=== PATIENT | male | born 1960 | race Caucasian/White ===

== ENCOUNTER → 2016-06-21 | Outpatient (CLI) | payer OTHER ==
--- NOTE | 2016-06-21 12:34 | MR ---
EXAMINATION TYPE: MR brain wo con DATE OF EXAM: 06/21/2016 11:12 AM COMPARISON: 01/19/2012 HISTORY: [facility] Standard multiplanar, multisequence MRI departmental protocol FINDINGS: There is no evidence of acute ischemia. Ventricular system is midline. No mass effect. Craniocervical junction maintained. Partially empty sella turcica noted. Changes of paranasal sinusit is noted. Intraorbital structures demonstrate a normal appearance. No evidence of cerebellopontine angle mass. WHITE MATTER: There are approximately 10 focal areas of abnormal signal scattered throughout the white matter bilat erally. All measuring 5 mm or less. No callosal lesions. No lesions perpendicular to the ventricular system. IMPRESSION: Nonspecific minimal white matter changes. Differential includes hypertension, remote microvascular is chemia or demyelinating process.
== END | disposition home or self-care (01) ==
LOC: RADMRIMAIN 10:39
PROVIDERS: ATTEND Psychiatry & Neurology Neurology
DX: R90.89 Other abnormal findings on diagnostic imaging of central nervous system (principal)
CPT/HCPCS: 70551

== ENCOUNTER → 2016-06-29 | Outpatient (CLI) | payer OTHER ==
[2016-06-29 11:28] VITALS: BP 178/94; PULSE 70; RESP 16; TEMP 97.7
--- NOTE | 2016-06-29 11:41 | P.PN ---
Subjective This is follow-up visit for this patient with a history of severe and chronic low back pain secondary to lumbar degenerative disc disease, lumbar facet arthropathy, and neck pain secondary to cervical spondylosis, we have done interventional pain management injection, diagnostic medial branch block lumbar area, patient had significant improvement of his low back pain for a few hours , he got more than 50% decrease in his low back pain and is currently on pain medications 1-Percocet 10/325 every 6 hours 2-baclofen 10 mg twice a day 3- Neurontin 400 mg every 8 hours ( from her primary care ) Patient denies any side effects of the medication, denies excessive drowsiness or sleepiness, denies suicidal ideation, and reports that the current pain medication is NOT helping To control the pain and improve activity of daily living the VAS /10 without the medications ,and it drope to /10 with the medication Physical Examinations : 1-Constitutiona : Cooperative , not in acute distress . 2-HEENT : nech ; supple , no Lymphadenopathy , no Thyromegaly , normal thyroid size . eyes : no ptosis , no icterus, no photophobia . ENT : normal of hearing , normal oropharynx , no Thrush . 3- Respiratory : Chest clear to auscultations Bilaterally , no wheezing , no Rhonchi . 4- Cardiovascular : regular rate and rhythem , S1 , S2 , no S3 , no S4. 5- Gastrointestinal : abdomen soft no tenderness , bowel sounds positive all four quadrents , no organomegally . 6- Genitourinary : Defferred . 7- neurologic : Cranial nerve II to XII intact , no focal neurological deffecit . 8-psychatric : alert , oriented X 3 , appropriate affect , intact judgment and insight . 9-Lymphatic : no Lymphadenopathy . 10- musculoskeltal : exams of the cervical spine = motor strength normal bilateral upper extremities facet loading test cervical area positive. exams of the Lumber spine = motor strength lower extremities ,thigh and legs .5/5 deep tendon reflexes : normal Knee Jerk , normal ankle Jerk . lumber facet Loading Test positive strait leg raising test positive at 30 degree , RT ,LT , Fabere test positive RT and positive LT . Range of motion: Range of motion in flexion of the lumbar spine 30 degrees Range of motion range of motion of extension of the lumbar spine 10 Assessment and plan = - Chronic low back pain secondary to lumbar degenerative disc disease , lumbar spondylosis with facet arthropathy without myelopathy , -chronic and current use of high-risk medication (Opioids). The patient was counseled about risk of opioid use, psychological risk associated with opioids and was orally counseled to not overuse , abuse , divert ,or sell dictations to take medications as prescribed only , and to restore medication in safe location , and patient counseled against driving while using narcotic medications, and also not to use alcohol or any illicit recreational drugs the patient's verbalized understanding that the lack of compliance will result in failure to renew narcotic prescription and possible discharge from the clinic - diagnoses, prognosis, and treatment options including but not limited to physical therapy, surgical interventions, interventional therapies and medication management including narcotics and adjuvant medication were discussed with the patient and all questions answered to the patient's satisfaction. -medication refile =1-refill Percocet 10/325 every 6 hours dispense 20 with 1 refill 3-baclofen 10 mg twice a day dispense 60 with 1 refill -procedure= repeat diagnostic medial branch block lumbar area is L3-4 /L4-5/L5- S1 The blood pressure was 178/94 and patient was instructed to take his blood pressure medication patient reported that he ran out of his medications and he will get his prescription today, and he will follow up with his primary care regarding his blood pressure
== END | disposition home or self-care (01) ==
LOC: PNWHC3 11:06
PROVIDERS: ATTEND Specialist
DX: G89.29 Other chronic pain (principal); M47.816 Spondylosis without myelopathy or radiculopathy, lumbar region; M51.36 Other intervertebral disc degeneration, lumbar region; M46.96 Unspecified inflammatory spondylopathy, lumbar region; M47.812 Spondylosis without myelopathy or radiculopathy, cervical region; Z79.891 Long term (current) use of opiate analgesic
CPT/HCPCS: 99211

== ENCOUNTER 2016-07-04 06:05 | Day surgery (SDC) | payer OTHER ==
[2016-06-30 15:14] VITALS: BMI 29.5
[~2016-07-04 06:05] MED LIST: LACTATED RINGERS 1,000 ML IV SCH
[2016-07-04 06:58] VITALS: TEMP 98.2
[2016-07-04] MEDS ORDERED: LIDOCAINE 1% 20 ML VIAL (10MG/ML) FOR IV START INTRADERMA ONE (07:07)
[2016-07-04 07:13] LABS: Glucose,Whole Blood 103 mg/dL (75-99)
[2016-07-04] MEDS ORDERED: BUPIVACAINE (PF) 0.5% 30 ML VIAL ONE (07:13)
[2016-07-04] MEDS ORDERED: fentaNYL (PF) 50 MCG/ML 2 ML AMP ONE (07:13)
[2016-07-04] MEDS ORDERED: TRIAMCINOLONE ACETONIDE 40 MG/ML 1 ML VIAL ONE (07:13)
[2016-07-04] MEDS ORDERED: MIDAZOLAM 2 MG/2 ML VIAL ONE (07:13)
--- NOTE | 2016-07-04 07:37 | P.PCN ---
Date of Procedure: 07/04/16 Procedure(s) Performed: PREOPERATIVE DIAGNOSIS : 1- Lumbar spondylosis with Facet Arthropathy without myelopathy . 2- Lumber degenerative disc disease POSTOPERATIVE DIAGNOSIS: 1- Lumbar spondylosis with Facet Arthropathy without myelopathy . 2- Lumber degenerative disc disease PROCEDURE: Diagnostic bilateral L3 -4 , L4 -5 , and L5-S1 medial branch block under fluoroscopy #2 ANESTHESIA: Local with 1% lidocaine 6 ml ; IV sedation with Versed 2 mg and Fentanyl 150 mcg. EBL: Minimal COMPLICATION: None. IV FLUIDS: 100 mL of normal saline. PROCEDURE INDICATION: Chronic low back pain secondary to Facet arthropathy unresponsive to conservative treatment. PROCEDURE DESCRIPTION: the patient was seen and identified in the preop holding area , risks and benefits and possible complications of the procedure and alternative were discussed with the patient, and the patient agreed to proceed with the procedure and signed the consent IV was started and vital signs monitored during the procedure and fluoroscopy was used to maximize the benefit and accuracy of the needle placement, and sedation was given to decrease patient anxiety, patient was taken to the procedure room and placed in prone position vital signs monitored in the back prepped with chlorhexidine X3 then under strict sterile technique using a right oblique fluoroscopy ,the junction of the transverse process and the superior articulating process of the right L3- 4 , L4- 5, and L5-S1 vertebra which corresponding to the fluoroscopy image of the eye of the Moses dog on the block side for the medial branches and subsequently , after local infiltration of skin and subcu tissuies with lidocaine 1% one mL at each level ,then 22- gauge Quincke-type needles , 3 needle was used , each one of them placed at the junction of the base of the transverse process and the superior articular process at the appropriate level, and the needle was advanced until the periosteum contacted, needle placement confirmed with AP oblique and lateral view and after appropriate needle placement confirmed, and after negative aspiration for heme and CSF and there was no paresthesia 1-1/2 mL of Marcaine 0.5% mixed with 40 mg Kenalog , then half mL injected at each level after negative aspiration the needle subsequently removed and the same procedure repeated for the left side at left side at L3-4, L4- 5 and L5-S1 levels. At the end of the procedure and the needles removed and a bandage applied after the skin was cleaned the cleaning solution patient taken to recovery room in stable condition and monitors in the recovery room for 20-30 minutes and discharged home in stable condition after discharge criteria met and patient will follow up with the pain clinic in 2-4 weeks
[2016-07-04 08:04] VITALS: BP 112/76; PULSE 68; RESP 20
[2016-07-04] MEDS ORDERED: IV FLUID CONTINUATION 1,000 ML IV ONE (08:05)
--- NOTE | 2016-07-04 08:58 | FL ---
EXAMINATION TYPE: FL guided pain mgmt... statistic DATE OF EXAM: 07/04/2016 7:42 AM HISTORY: Flouroscopy time 9 seconds of fluoroscopy provided. IMPRESSION: 1. Fluoroscopy time.
== END 2016-07-04 08:13 | disposition home or self-care (01) ==
LOC: ORPAIN 06:05
PROVIDERS: ATTEND Specialist
DX: G89.29 Other chronic pain (principal); M54.5 Low back pain; M47.816 Spondylosis without myelopathy or radiculopathy, lumbar region; M46.96 Unspecified inflammatory spondylopathy, lumbar region; M51.36 Other intervertebral disc degeneration, lumbar region
CPT/HCPCS: 64493; 64494; 64495; 99152; J2250; J3301; J3010

== ENCOUNTER → 2016-07-18 | Outpatient (CLI) | payer OTHER ==
[2016-07-18 12:20] LABS: Blood Urea Nitrogen 14 mg/dL (9-20); Non-African American GFR(MDRD) >60 (>60 ml/min/1.73 sqM)
--- NOTE | 2016-07-18 13:44 | CT ---
EXAMINATION TYPE: CT chest w con DATE OF EXAM: 07/18/2016 12:45 PM COMPARISON: Prior chest CT 11 November 2015 HISTORY: SPN CT DLP: 485.70 mGycm Automated exposure control for dose reduction was used. CONTRAST: CT scan of the chest is performed with IV Contrast, patient injected with 100 ml mL of Omnipaque 300. FINDINGS: LUNGS: The lungs are grossly clear, there is no concerning parenchymal mass or nodule identified. T here is no pleural effusion or pneumothorax seen. The tracheobronchial tree is patent. MEDIASTINUM: There are no greater than 1 cm hilar or mediastinal lymph nodes. No pericardial effusi on is seen. AORTA: No additional significant abnormality is seen. OTHER: Liver shows low attenuation likely due to fatty infiltration. IMPRESSION: No evident lung mass.
== END | disposition home or self-care (01) ==
LOC: RADCTMAIN 11:38
PROVIDERS: ATTEND Internal Medicine Sleep Medicine
DX: R91.1 Solitary pulmonary nodule (principal)
CPT/HCPCS: 82565; 84520; 71260; 36415; Q9967

== ENCOUNTER → 2016-07-25 | Outpatient (CLI) | payer OTHER ==
[2016-07-25 11:53] VITALS: BP 156/94; PULSE 75; RESP 18; TEMP 97.5
--- NOTE | 2016-07-25 12:09 | P.PN ---
Progress Note - Text Patient returns for followup for chronic back pain with mild radiation to the legs. Patient recently underwent lumbar MBB x 2, which provided some relief for 1-2 hours on the day of the procedure itself and then wore off. Patient continues on Percocet and baclofen medications for pain with good relief. Patient denies adverse drug effects from medications. Today, pt denies new- onset weakness, bowel/bladder incontinence, or any other signs or symptoms of cauda equina syndrome. There are no signs of acute intoxication, and no indications of medication diversion or overuse. In addition to above, 13-point review of systems is also negative for chest pain , shortness of breath, changes in vision, changes in hearing, new onset weakness , abdominal pain, diarrhea, extreme fatigue, malaise, fever, skin changes, homicidal or suicidal ideation, or bowel or bladder incontinence. Vital Signs: Reviewed in EMR Gen: WDWN, AAOx3, NAD HEENT: NCAT, EOMI, hearing grossly normal Pulm: resp unlabored Abd: soft, NT, ND Neck: supple, trachea midline ROM in flexion lumbar spine: reduced ROM in extension lumbar spine: reduced Lumbar paravertebral tenderness: + Facet loading: ++ bilateral SI joint tenderness: + R side Anibal's test: + R side Straight leg raise: neg bilateral Neuro: CN II-XII grossly intact, muscle strength lower extremities PRESERVED Imaging: Reviewed in EMR Assessment: 1. lumbar spondylosis without myelopathy 2. SI joint dysfunction 3. chronic pain syndrome Plan: 1. Explanation: Opioid and psychological risk scores were reviewed. Diagnoses , prognoses, and multiple treatment options including but not limited to physical therapy, interventional therapies, adjuvant medical therapies, narcotic medication therapies, and surgery were discussed with the patient and all questions were answered to the patient's satisfaction. 2. Opioid agreement: Patient has previously signed narcotic agreement, and was orally counseled to not overuse, abuse, divert, or cell medications, and to take them as prescribed by only 1 healthcare provider. The patient was also counseled to store opioid medications in a safe and preferably locked location. Patient was also counseled against driving or operating heavy equipment while using narcotic medications and also to not use alcohol or any illicit or recreational drugs. The patient verbalized understanding that lack of compliance with any of the above and likely result in failure to renew narcotic prescriptions, possible discharge from the clinic, and possible legal ramifications thereafter if indicated. 3. Counseling: The patient was counseled extensively on SMOKING CESSATION, BODY MASS INDEX, EXERCISE. Specifically, the patient was instructed regarding the importance of smoking cessation, obesity, and exercise in the context of both chronic pain and overall health. 4. Procedures: right, then left lumbar RFA (even though relief for only 1-2 hours, was >50% from both procedures) 5. Consultations: None 6. Investigations: None 7. Medications: Percocet 10/325 #120 with one refill; baclofen 10 mg #60 with two refill 8. Disposition: f/u for procedure as scheduled PQRS measures: 1-Patient's medications are documented in the chart. 2-Tobacco use is negative 3-Patient has had a pneumococcal vaccine. 4-Advanced care planning discussed, patient unable to give. 5-Opioid contract signed with the patient. 6-Pain positive, follow-up visit or procedure scheduled 7-Patient's blood pressure measured and documented, and patient will follow up with the primary care due to hypertension. 8-Patient's weight was measured, and body mass index ABOVE the normal limits, and counseling was done. Patient instructed to follow up with PCP. 9-Patient WAS NOT identified as an unhealthy alcohol user.
[2016-07-27 14:11] LABS: Serum Amphetamine Negative; Serum Barbiturates Negative; Serum Benzodiazepine Positive; Serum Cocaine Negative; Serum Methadone Negative; Serum Opiates Negative; Serum Phencyclidine Negative; Serum Propoxyphene Negative; Serum THC (Cannabis) Negative
== END | disposition home or self-care (01) ==
LOC: PNWHC3 11:19
PROVIDERS: ATTEND Anesthesiology
DX: M47.816 Spondylosis without myelopathy or radiculopathy, lumbar region (principal); M53.88 Other specified dorsopathies, sacral and sacrococcygeal region; G89.4 Chronic pain syndrome; Z79.891 Long term (current) use of opiate analgesic; I10 Essential (primary) hypertension
CPT/HCPCS: 80307; G0463; 99211

== ENCOUNTER → 2016-08-23 | Outpatient (CLI) | payer OTHER ==
[2016-08-23 12:42] VITALS: BP 134/85; PULSE 64; RESP 16; TEMP 97.6
--- NOTE | 2016-08-23 13:13 | P.CONS ---
History of Present Illness - Reason for Consult Consult date: 08/23/16 - Chief Complaint Severe persistent low back pain radiating into her legs - History of Present Illness This pleasant 55-year-old male returns today for continuing evaluation possible therapeutic intervention with regards to his chronic low back and lower extremity related discomfort. The patient here at [facility] for several years having undergone multiple interventional pain procedures as well as been maintained on medical management for that. At time. He currently presents on a oral analgesic regimen including oxycodone 10 mg, baclofen 10 mg and a variety of other nonnarcotic medications. He states that he uses these on a regular basis as are prescribed, and that they are of moderate efficacy for him. It was again stressed to Mr. Murray Hood that following directions as far as his medication administration and usage is of paramount importance, and if we find here at the [facility] that he is not compliant with the terms of his narcotic contract he will be discharged from the pain clinic at the current time he is scheduled for a radiofrequency procedure of his medial branch nerves in his low back in approximately 1 week's time. After this procedure we will again evaluate his results and decide on where to go with his medical management a couple weeks later and that appointment is scheduled scheduled as well on September 19 see no further need for intervention this work is were discharged in excellent condition and instructed to return on the at which time he would undergo interventional procedure hopefully which will lower his reliance on oral analgesic preparations and improve his overall quality of life Past Medical History Past Medical History: Asthma, CVA/TIA, Hyperlipidemia, Pneumonia Additional Past Medical History / Comment(s): back pain-LUMBAGO, vertigo, STROKES BEHIND THE EYES,. difficulty swallowing. History of Any Multi-Drug Resistant Organisms: None Reported Past Surgical History: Appendectomy, Hernia Repair, Orthopedic Surgery Additional Past Surgical History / Comment(s): RT INGUINAL HERNIA INFANT, RT ROTATOR CUFF SX, Past Anesthesia/Blood Transfusion Reactions: No Reported Reaction Past Psychological History: Anxiety, Depression Additional Psychological History / Comment(s): XANAX Smoking Status: Former smoker Past Alcohol Use History: None Reported Additional Past Alcohol Use History / Comment(s): STARTED SMOKING AT AGE 18 SMOKES 1PPD, Quit Smoking 05/11 Past Drug Use History: None Reported - Past Family History Father Family Medical History: Asthma, COPD, Diabetes Mellitus, Hyperlipidemia, Hypertension Mother Family Medical History: Hypertension Medications and Allergies Home Medications Medication Instructions Recorded Confirmed Type ALPRAZolam [ALPRAZolam] 1 mg PO BID 11/25/15 08/23/16 History Citalopram Hydrobromide 40 mg PO DAILY 11/25/15 08/23/16 History [Citalopram HBr] Gemfibrozil [Lopid] 600 mg PO BID 11/25/15 08/23/16 History Temazepam [Restoril] 30 mg PO HS 11/25/15 08/23/16 History Budesonide/Formoterol Fumarate 1 puff INHALATION RT-BID 02/03/16 08/23/16 History [Symbicort 160-4.5 Mcg Inhaler] Omeprazole 20 mg PO AC-BRKFST 02/03/16 08/23/16 History Aspirin [Adult Low Dose Aspirin EC] 81 mg PO DAILY 03/20/16 08/23/16 History Ipratropium-Albuterol Nebulize 3 ml INHALATION RT-TID 03/28/16 08/23/16 History [Duoneb 0.5 mg-3 mg/3 ml Soln] Montelukast [Singulair] 10 mg PO DAILY 06/29/16 08/23/16 History Lisinopril [Zestril] 10 mg PO DAILY 06/30/16 08/23/16 History Allergies Allergy/AdvReac Type Severity Reaction Status Date / Time birds Allergy Wheezing Uncoded 08/23/16 12:20 Physical Exam Osteopathic Statement: *. No significant issues noted on an osteopathic structural exam other than those noted in the History and Physical/Consult. Vitals: Vital Signs Temp Pulse Resp BP 08/23/16 12:33 97.6 F 64 16 134/85 Intake and Output 08/22/16 08/23/16 08/23/16 22:59 06:59 14:59 Other: Weight 97.522 kg Patient Weight 08/24/16 06:59 Weight 97.522 kg
== END | disposition home or self-care (01) ==
LOC: PNWHC3 11:56
PROVIDERS: ATTEND Anesthesiology
DX: G89.29 Other chronic pain (principal); M54.5 Low back pain; M79.605 Pain in left leg; M79.604 Pain in right leg; F41.9 Anxiety disorder, unspecified; F32.9 Major depressive disorder, single episode, unspecified; J45.909 Unspecified asthma, uncomplicated; E78.5 Hyperlipidemia, unspecified; Z86.73 Personal history of transient ischemic attack (TIA), and cerebral infarction without residual deficits; Z79.899 Other long term (current) drug therapy; Z91.09 Other allergy status, other than to drugs and biological substances; Z87.891 Personal history of nicotine dependence

== ENCOUNTER 2016-08-31 06:54 | Day surgery (SDC) | payer OTHER ==
[2016-08-29 12:18] VITALS: BMI 29.0
[2016-08-31] MEDS ORDERED: LACTATED RINGERS 1,000 ML IV ONE (07:00)
[2016-08-31 07:42] VITALS: TEMP 97.5
[2016-08-31] MEDS ORDERED: LIDOCAINE 1% 20 ML VIAL (10MG/ML) FOR IV START INTRADERMA ONE (07:49)
[2016-08-31] MEDS ORDERED: TRIAMCINOLONE ACETONIDE 40 MG/ML 1 ML VIAL ONE (08:50)
[2016-08-31] MEDS ORDERED: fentaNYL (PF) 50 MCG/ML 2 ML AMP ONE (08:50)
[2016-08-31] MEDS ORDERED: MIDAZOLAM 2 MG/2 ML VIAL ONE (08:50)
[2016-08-31] MEDS ORDERED: BUPIVACAINE (PF) 0.5% 30 ML VIAL ONE (08:50)
--- NOTE | 2016-08-31 09:21 | P.PCN ---
Date of Procedure: 08/31/16 Procedure(s) Performed: PREOPERATIVE DIAGNOSIS: 1-Lumbar Spondylosis with Facet Arthropathy without myelopathy. POSTOPERATIVE DIAGNOSIS: 1- Lumbar Spondylosis with Facet Arthropathy without myelopathy. PROCEDURES : Right Radiofrequency thermocoagulation, L3-L4, L4-L5, and L5-S1 medial branch, with fluoroscopic guidance ANESTHESIA: IV sedation with versed 2 mg and fentaneyl 150 mcg and local infiltration with lidocaine 1% 6 ml EBL: Minimal PROCEDURE INDICATION: The patient with low back pain secondary to lumbar facet arthropathy who had more than 50% relief of her pain with previous diagnostic lumbar medial branch block with bupivacaine. PROCEDURE DESCRIPTION / TECHNIQUE: The patient was seen and identified in the preoperative area. Risks, benefits, complications, including but not limited to risk of infection ,bleeding , allergic reactions to the medications and no complete pain releife , and alternatives were discussed with the patient, the patient agreed to proceed with the procedure and signed the consent. IV was started. Vital signs remained stable throughout the procedure. Patient was taken to the OR and time out was completed. The patient was placed in the prone position on the procedure table. The lumber area was prepped and draped in the usual sterile fashion. . Vital signs were closely monitored during the procedure .IV sedation was used during the procedure to decrease patients anxiety. Using AP and then oblique fluoroscopy, the ``eye of the Moses dog corresponding to the connection between the superior and transverse articular processes of right L3, L4, and L5 were identified, marked, and localized with 1 % lidocaine. Subsequently, a 18 [id number] radiofrequency cannula with a 10- mm active tip was advanced guided by fluoroscopy to each of the ``eyes of the Moses dog at right L3, L4, and L5. Each site then underwent sensory testing at 50 Hz and 0 to 1 volt and motor testing at 2.5 Hz and 0 to 3 volt with local stimulation, but no radicular symptoms down the legs. Thereafter the right L3-4, L4-5, and L5-S1 sites underwent radiofrequency thermocoagulation at 80 degrees celsius for 90 seconds after injecting 0.5 ml of PF lidocaine 1%. then After the thermocoagulation done , 1 ml of the block solution containing Kenalog 40 mg and 3 ml of marain 0.5% was injected at the right L3-4 , L4-5 , and L5-S1, levels after negative aspiration of CSF and blood and with no paresthesias. Cannulas were retracted while injecting lidocaine 1% until the needle is out. At the end of the procedure, the skin was cleansed and bandages were applied. COMPLICATIONS: No acute complications. DISPOSITION / PLANS: The patient was placed in a supine position and transferred to the recovery area in a stable condition for observation and was discharged from the recovery room after meeting discharge criteria. Home discharge instructions given to the patient by the staff. The patient was reexamined prior to discharge. The patient will schedule a follow up in the clinic in 2-4 weeks.
--- NOTE | 2016-08-31 09:31 | FL ---
FLUOROSCOPY 7 seconds of fluoroscopy time were utilized during facet block. 3 images document the procedure.
[2016-08-31 10:05] VITALS: BP 110/76; PULSE 55; RESP 18
[2016-08-31] MEDS ORDERED: IV FLUID CONTINUATION 1,000 ML IV ONE (10:05)
[2016-09-01 16:20] LABS: Serum Amphetamine Negative; Serum Barbiturates Negative; Serum Benzodiazepine Negative; Serum Cocaine Negative; Serum Methadone Negative; Serum Opiates Negative; Serum Phencyclidine Negative; Serum Propoxyphene Negative; Serum THC (Cannabis) Negative
--- NOTE | 2016-09-04 09:57 | CDI ---
In order to properly code and bill for this encounter, we need to know what type of sedation was used during the procedure. Your Procedure Note states "IV sedation" and the Pain Procedure Record doesn't have anything checked after Anesthesia Plan. What types of sedation or anesthesia was used? Examples includes: -MAC -Moderate/conscious sedation -General anesthesia -None Please provide sedation details in an addendum to your operative report. Thank you! GENEVIEVE Goncalves
[2016-09-05 09:55] LABS: Mis test requested (Blood) FENTANYL-FENTM
--- NOTE | 2016-09-28 23:22 | P.PN ---
Progress Note - Text This is an addendum to the note dictated 08/31/2016, patient received moderate sedation for the procedure he received 2 mg of Versed and 150 g of fentanyl , and the
== END 2016-08-31 10:19 | disposition home or self-care (01) ==
LOC: ORPAIN 06:54
PROVIDERS: ATTEND Specialist
DX: M47.816 Spondylosis without myelopathy or radiculopathy, lumbar region (principal); M46.96 Unspecified inflammatory spondylopathy, lumbar region; Z91.09 Other allergy status, other than to drugs and biological substances; Z86.73 Personal history of transient ischemic attack (TIA), and cerebral infarction without residual deficits
CPT/HCPCS: 80307; 64635; 64636; 99152; 99153; G0480; J2250; J3301; J3010; 80320; 80354

== ENCOUNTER → 2016-09-19 | Outpatient (CLI) | payer OTHER ==
[2016-09-19 12:07] VITALS: BP 136/75; PULSE 64; RESP 16; TEMP 97.5
--- NOTE | 2016-09-19 12:25 | P.PN ---
Progress Note - Text Patient returns for followup for chronic back pain with mild radiation to the legs. Patient recently underwent R lumbar RFA x 2, which has helped substantially with right leg pain but patient still has some back pain. Left RFA is already scheduled. Patient continues on Percocet and baclofen medications for pain with good relief but last two serum drug screens (patient states that he cannot typically urinate at our clinic) have been negative for opioids. Patient insists that he is taking them and denies adverse drug effects from medications. Today, pt denies new-onset weakness, bowel/bladder incontinence, or any other signs or symptoms of cauda equina syndrome. There are no signs of acute intoxication, and no indications of medication diversion or overuse. In addition to above, 13-point review of systems is also negative for chest pain , shortness of breath, changes in vision, changes in hearing, new onset weakness , abdominal pain, diarrhea, extreme fatigue, malaise, fever, skin changes, homicidal or suicidal ideation, or bowel or bladder incontinence. Vital Signs: Reviewed in EMR Gen: WDWN, AAOx3, NAD HEENT: NCAT, EOMI, hearing grossly normal Pulm: resp unlabored Abd: soft, NT, ND Neck: supple, trachea midline ROM in flexion lumbar spine: reduced ROM in extension lumbar spine: reduced Lumbar paravertebral tenderness: + Facet loading: ++ bilateral SI joint tenderness: + R side Anibal's test: + R side Straight leg raise: neg bilateral Neuro: CN II-XII grossly intact, muscle strength lower extremities PRESERVED Imaging: Reviewed in EMR Assessment: 1. lumbar spondylosis without myelopathy 2. SI joint dysfunction 3. chronic pain syndrome Plan: 1. Explanation: Opioid and psychological risk scores were reviewed. Diagnoses , prognoses, and multiple treatment options including but not limited to physical therapy, interventional therapies, adjuvant medical therapies, narcotic medication therapies, and surgery were discussed with the patient and all questions were answered to the patient's satisfaction. 2. Opioid agreement: Patient has previously signed narcotic agreement, and was orally counseled to not overuse, abuse, divert, or cell medications, and to take them as prescribed by only 1 healthcare provider. The patient was also counseled to store opioid medications in a safe and preferably locked location. Patient was also counseled against driving or operating heavy equipment while using narcotic medications and also to not use alcohol or any illicit or recreational drugs. The patient verbalized understanding that lack of compliance with any of the above and likely result in failure to renew narcotic prescriptions, possible discharge from the clinic, and possible legal ramifications thereafter if indicated. 3. Counseling: The patient was counseled extensively on BODY MASS INDEX, EXERCISE. Specifically, the patient was instructed regarding the importance of obesity, and exercise in the context of both chronic pain and overall health. 4. Procedures: left lumbar RFA 5. Consultations: None 6. Investigations: UDS to be performed today 7. Medications: Percocet 10/325 #60 with no refills; baclofen 10 mg #60 with two refills 8. Disposition: f/u for procedure as scheduled, please check UDS result at procedure visit PQRS measures: 1-Patient's medications are documented in the chart. 2-Tobacco use is negative 3-Patient has had a pneumococcal vaccine. 4-Advanced care planning discussed, patient unable to give. 5-Opioid contract signed with the patient. 6-Pain positive, follow-up visit or procedure scheduled 7-Patient's blood pressure measured and documented, and patient will follow up with the primary care due to hypertension. 8-Patient's weight was measured, and body mass index ABOVE the normal limits, and counseling was done. Patient instructed to follow up with PCP. 9-Patient WAS NOT identified as an unhealthy alcohol user.
== END | disposition home or self-care (01) ==
LOC: PNWHC3 11:32
PROVIDERS: ATTEND Anesthesiology
DX: M47.816 Spondylosis without myelopathy or radiculopathy, lumbar region (principal); G89.4 Chronic pain syndrome; Z79.891 Long term (current) use of opiate analgesic
CPT/HCPCS: 80307 ×2; G0463; 80346; 80364; 99211

== ENCOUNTER 2016-10-11 09:06 | Day surgery (SDC) | payer OTHER ==
[2016-10-10 08:34] VITALS: BMI 28.6
[2016-10-11] MEDS ORDERED: LIDOCAINE 1% 20 ML VIAL (10MG/ML) FOR IV START INTRADERMA ONE (10:02)
[2016-10-11 10:13] VITALS: TEMP 97.7
[2016-10-11] MEDS ORDERED: MIDAZOLAM 2 MG/2 ML VIAL ONE (10:42)
[2016-10-11] MEDS ORDERED: TRIAMCINOLONE ACETONIDE 40 MG/ML 1 ML VIAL ONE (10:42)
[2016-10-11] MEDS ORDERED: fentaNYL (PF) 50 MCG/ML 2 ML AMP ONE (10:42)
[2016-10-11] MEDS ORDERED: BUPIVACAINE (PF) 0.5% 30 ML VIAL ONE (10:42)
--- NOTE | 2016-10-11 11:11 | P.PCN ---
Date of Procedure: 10/11/16 Preoperative Diagnosis: Postoperative Diagnosis: Procedure(s) Performed: PREOPERATIVE DIAGNOSIS: 1-Lumbar Spondylosis with Facet Arthropathy without myelopathy. POSTOPERATIVE DIAGNOSIS: 1- Lumbar Spondylosis with Facet Arthropathy without myelopathy. PROCEDURES : Left Radiofrequency thermocoagulation, L3-L4, L4-L5, and L5-S1 medial branch, with fluoroscopic guidance ANESTHESIA: IV sedation with versed 2 mg and fentaneyl 100 mcg and local infiltration with lidocaine 1% 6 ml EBL: Minimal PROCEDURE INDICATION: The patient with low back pain secondary to lumbar facet arthropathy who had more than 50% relief of her pain with previous diagnostic lumbar medial branch block with bupivacaine. PROCEDURE DESCRIPTION / TECHNIQUE: The patient was seen and identified in the preoperative area. Risks, benefits, complications, including but not limited to risk of infection ,bleeding , allergic reactions to the medications and no complete pain releife , and alternatives were discussed with the patient, the patient agreed to proceed with the procedure and signed the consent. IV was started. Vital signs remained stable throughout the procedure. Patient was taken to the OR and time out was completed. The patient was placed in the prone position on the procedure table. The lumber area was prepped and draped in the usual sterile fashion. . Vital signs were closely monitored during the procedure .IV sedation was used during the procedure to decrease patients anxiety. Using AP and then oblique fluoroscopy, the ``eye of the Moses dog corresponding to the connection between the superior and transverse articular processes of left L3, L4, and L5 were identified, marked, and localized with 1 % lidocaine. Subsequently, a 18 [id number] radiofrequency cannula with a 10- mm active tip was advanced guided by fluoroscopy to each of the ``eyes of the Moses dog at left L3, L4, and L5. Each site then underwent sensory testing at 50 Hz and 0 to 1 volt and motor testing at 2.5 Hz and 0 to 3 volt with local stimulation, but no radicular symptoms down the legs. Thereafter the left L3-4, L4-5, and L5-S1 sites underwent radiofrequency thermocoagulation at 80 degrees celsius for 90 seconds after injecting 0.5 ml of PF lidocaine 1%. then After the thermocoagulation done , 1 ml of the block solution containing Kenalog 40 mg and 3 ml of marain 0.5% was injected at the left L3-4 , L4-5 , and L5-S1, levels after negative aspiration of CSF and blood and with no paresthesias. Cannulas were retracted while injecting lidocaine 1% until the needle is out. At the end of the procedure, the skin was cleansed and bandages were applied. COMPLICATIONS: No acute complications. DISPOSITION / PLANS: The patient was placed in a supine position and transferred to the recovery area in a stable condition for observation and was discharged from the recovery room after meeting discharge criteria. Home discharge instructions given to the patient by the staff. The patient was reexamined prior to discharge. The patient will schedule a follow up in the clinic in 2-4 weeks. Implants: Indications for Procedure: Operative Findings: Description of Procedure:
[2016-10-11] MEDS ORDERED: IV FLUID CONTINUATION 600 ML IV ONE (11:22)
[2016-10-11 11:26] VITALS: PULSE 50
--- NOTE | 2016-10-11 11:31 | FL ---
EXAMINATION TYPE: FL guided pain mgmt statistic DATE OF EXAM: 10/11/2016 11:11 AM HISTORY: Flouroscopy time 5 seconds of fluoroscopy provided. IMPRESSION: 1. Fluoroscopy time.
[2016-10-11 11:50] VITALS: BP 120/71; RESP 18
== END 2016-10-11 12:22 | disposition home or self-care (01) ==
LOC: ORPAIN 09:06
PROVIDERS: ATTEND Specialist
DX: M47.816 Spondylosis without myelopathy or radiculopathy, lumbar region (principal); M46.96 Unspecified inflammatory spondylopathy, lumbar region
CPT/HCPCS: 64635; 64636; 99152; J2250; J3301; J3010

== ENCOUNTER → 2016-11-08 | Outpatient (CLI) | payer OTHER ==
[2016-11-08 12:07] VITALS: BP 134/77; PULSE 60; RESP 18; TEMP 97.9
--- NOTE | 2016-11-09 22:02 | P.PN ---
Subjective This is for visit for this 56 years old male with a chronic history of severe low back pain, diagnosed with lumbar spondylosis, disposed radiofrequency ablation of the medial branch lumbar area done last month, he reported that his low back pain improved but he continued to have some pain in the buttock area laterally, he denies any motor or sensory deficit, and no fever or night sweats with no change in the bowel movement or urination, he reported that the interventional pain management of his pain, currently most of the pain localized in the buttock area, and is not deviated to the lower extremity, his currently on pain medication Percocet 10/325 every 8 hours, baclofen 10 mg twice a day and Neurontin 400 mg 3 times a day, he denies any side effect of the medication he denies any excessive drowsiness or sleepiness and he reported that the current pain medication is helping him to control his pain Objective - Vital Signs Vital signs: Vital Signs Temp 97.9 F 11/08/16 11:57 Pulse 60 11/08/16 11:57 Resp 18 11/08/16 11:57 BP 134/77 11/08/16 11:57 Pulse Ox 99 11/08/16 11:57 - Exam Physical Examinations : 1-Constitutiona : Cooperative , not in acute distress . 2-HEENT : nech ; supple , no Lymphadenopathy , normal thyroid size . eyes : no ptosis , no icterus, no photophobia . ENT : normal of hearing , normal oropharynx , no Thrush . 3- Respiratory : Chest clear to auscultations Bilaterally , no wheezing , no Rhonchi . 4- Cardiovascular : regular rate and rhythem , S1 , S2 , no S3 , no S4. 5- Gastrointestinal : abdomen soft no tenderness , bowel sounds positive all four quadrents , no organomegally . 6- Genitourinary : Defferred . 7- neurologic : Cranial nerve II to XII intact , no focal neurological deffecit . 8-psychatric : alert , oriented X 3 , appropriate affect , intact judgment and insight . 9-Lymphatic : no Lymphadenopathy . 10- musculoskeltal : Lumber spine = normal moter stegnth lower extremities ,thigh and legs .5/5 deep tendon reflexes : normal Knee Jerk , normal ankle Jerk . positive lumber facet Loading Test strait leg raising test positive at 30 degree , RT ,LT , Fabere test positive RT and positive LT . Sever tenderness over the Sacroiliac joint on the Right , and Left side Assessment and Plan Plan: Assessment and plan= -chronic low back pain secondary to lumbar degenerative disc disease , lumbar spondylosis with lumbar facet arthropathy without myelopathy. - chronic and current use of high-risk medication (opioids) -Patient denies any side effects of the current pain medication and the current treatment/medication ML and the patient to do activity of daily living , diagnoses, prognosis, and treatment options, including but not limited to physical therapy, medication management, interventional therapies, and surgery, were discussed with the patient, and all the questions were answered to the patient's satisfactions Patient signed the narcotic agreement, and he was orally counseled, not to overuse, not to abuse, not to Divert , not tp sell pain medication, and to take it as prescribed only, Patient was counseled not to drive or operate heavy equipment while using narcotic medication, and advised not to use alcohol or any Illicit drugs while he is using the narcotis, the patient's verbalized understanding that lack of compliance with any of the above instructions and will likely to cause discharge from the pain service, not to renew his narcotic prescriptions Medication managements= patient will be given prescription refills for 1-Neurontin 400 mg 3 times a day 2-Percocet 10/325 twice a day 3-back) 10 mg twice a day 4-started Voltaren gel -like twice to the sacroiliac joint area Interventional pain management= consider bilateral sacroiliac joint steroid injection if the pain increased Follow-up= one month Time with Patient: Less than 30
== END ==
LOC: PNWHC3 11:23
PROVIDERS: ATTEND Specialist
DX: M51.36 Other intervertebral disc degeneration, lumbar region (principal); M47.816 Spondylosis without myelopathy or radiculopathy, lumbar region; M46.86 Other specified inflammatory spondylopathies, lumbar region; G89.29 Other chronic pain; Z79.891 Long term (current) use of opiate analgesic
CPT/HCPCS: 99211

== ENCOUNTER 2016-11-27 21:31 | Observation (INO) | payer OTHER ==
[2016-11-27] MEDS ORDERED: ASPIRIN 81 MG CHEW PO STA (22:12)
[2016-11-27] MEDS ORDERED: NITROGLYCERIN OINT 1 INCH/GM PACKET TOPICAL STA (22:12)
--- NOTE | 2016-11-27 22:16 | ED ---
Chest Pain HPI - General Chief Complaint: Chest Pain Stated Complaint: Chest Pain Time Seen by Provider: 11/27/16 22:04 Source: patient, family Mode of arrival: wheelchair Limitations: no limitations - History of Present Illness Initial Comments: This 56-year-old white male presents with a complaint of some left-sided chest pain. He describes this as a dull achy type pain which started around 4:00 AM this morning. It seems to radiate into his left neck, shoulder, and arm. He states that it is been a constant type of pain. He takes Percocet for his chronic back pain but states that this has not helped his chest pain. He denies any previous known cardiac disease but states he has had approximately 10 strokes. He denies any leg pain or swelling or history of DVT or PE. He denies any shortness of breath or palpitations. No other complaints or modifying factors. - Related Data Home Medications Medication Instructions Recorded Confirmed ALPRAZolam [ALPRAZolam] 1 mg PO BID 11/25/15 11/27/16 Citalopram Hydrobromide 40 mg PO DAILY 11/25/15 11/27/16 [Citalopram HBr] Gemfibrozil [Lopid] 600 mg PO BID 11/25/15 11/27/16 Temazepam [Restoril] 30 mg PO HS 11/25/15 11/27/16 Budesonide/Formoterol Fumarate 1 puff INHALATION RT-BID 02/03/16 11/27/16 [Symbicort 160-4.5 Mcg Inhaler] Omeprazole 20 mg PO DAILY 02/03/16 11/27/16 Aspirin [Adult Low Dose Aspirin EC] 81 mg PO DAILY 03/20/16 11/27/16 Montelukast [Singulair] 10 mg PO DAILY 06/29/16 11/27/16 Lisinopril [Zestril] 10 mg PO DAILY 06/30/16 11/27/16 Unknown Antibiotic 1 tab PO BID 11/27/16 11/27/16 oxyCODONE-APAP 10-325MG [Percocet 1 tab PO QID PRN 11/27/16 11/27/16 10-325 mg] Previous Rx's Medication Instructions Recorded Gabapentin [Neurontin] 400 mg PO TID #90 cap 05/04/16 Baclofen 10 mg PO BID #60 tablet 11/08/16 Allergies Allergy/AdvReac Type Severity Reaction Status Date / Time birds Allergy Wheezing Uncoded 11/27/16 21:42 Review of Systems ROS Statement: Those systems with pertinent positive or pertinent negative responses have been documented in the HPI. ROS Other: All systems not noted in ROS Statement are negative. Past Medical History Past Medical History: Asthma, CVA/TIA, Hyperlipidemia, Pneumonia Additional Past Medical History / Comment(s): back pain-LUMBAGO, vertigo, STROKES BEHIND THE EYES,. difficulty swallowing. History of Any Multi-Drug Resistant Organisms: None Reported Past Surgical History: Appendectomy, Hernia Repair, Orthopedic Surgery Additional Past Surgical History / Comment(s): RT INGUINAL HERNIA INFANT, RT ROTATOR CUFF SX, Past Anesthesia/Blood Transfusion Reactions: No Reported Reaction Past Psychological History: Anxiety, Depression Smoking Status: Former smoker Past Alcohol Use History: None Reported Past Drug Use History: None Reported - Past Family History Father Family Medical History: Asthma, Cancer, COPD, Diabetes Mellitus, Hyperlipidemia , Hypertension Mother Family Medical History: Hypertension General Exam - General Exam Comments Initial Comments: GENERAL: The patient is well nourished and well hydrated. VITAL SIGNS: Heart rate, blood pressure, respiratory rate reviewed as recorded in nurse's notes. EYES: Pupils are round and reactive. Extraocular movements are intact. No conjunctival / lid redness or swelling. ENT: No external evidence of injury, swelling, or ecchymosis. Airway is patent. Throat is clear. NECK: There is mild tenderness to his neck diffusely No swelling or evidence of injury. No subcutaneous emphysema. Trachea is midline. No thyroid mass. HEART: Regular rate and rhythm. Good peripheral pulses. LUNGS/CHEST: Breath sounds clear and equal bilaterally. No rales, rhonchi, or wheezes. No ecchymosis, subcutaneous emphysema, or tenderness. ABDOMEN: Abdomen soft without tenderness. No palpable masses or organomegaly. No peritoneal signs. No abdominal wall swelling or ecchymosis. EXTREMITIES: There is mild tenderness upon palpation of his left arm. Normal muscle tone and function. No thoracolumbar tenderness. NEUROLOGIC: Sensation is grossly intact. Cranial nerve exam reveals face is symmetrical, tongue is midline, speech is clear. SKIN: No abrasions or ecchymosis is noted. No induration or masses noted. PSYCHIATRIC: Alert and oriented. Appropriate behavior and judgment. Limitations: no limitations Course Vital Signs 11/27/16 11/27/16 21:39 22:29 Temperature 97.6 F Pulse Rate 58 L 58 L Respiratory 24 16 Rate Blood Pressure 152/85 140/93 O2 Sat by Pulse 96 99 Oximetry Chest Pain MDM - MDM The patient was seen and examined. All diagnostics were reviewed. He is placed on cardiac rehab nurse no ectopy is identified. The EKG shows a sinus bradycardia at a rate of 59. There is no acute ST-T wave changes identified. The OR interval is 142, QRS duration is 82, and the QTc interval is 443. The patient received some aspirin as well as some Nitropaste. He states that his left arm pain resolved with the medications. The chest x-ray does not show any acute processes. There is some possible atelectasis versus other pathology in the bases, please see radiology report for detail. The laboratory came back essentially unremarkable. The creatinine was minimally elevated. Overall, it is felt as though the possibility of acute Lenora syndrome certainly does exist and that he would benefit from admission to the hospital for further treatment. Case is discussed with internal medicine and they are agreeable with admission. Disposition Clinical Impression: Unstable angina pectoris, Chest pain, Renal insufficiency, Hypertension Disposition: ADMITTED IP TO THIS HOSP Condition: Fair Referrals: Fabiana Monroy MD [Primary Care Provider] - 1-2 days Time of Disposition: 23:18 Decision Date: 11/27/16 Decision Time: 23:18
[2016-11-27 22:29] LABS: Basophils # (A) 0.1 k/uL (0-0.2); Basophils % (A) 1 %; CH 31.8; CHCM 33.8; Eosinophils # (A) 0.1 k/uL (0-0.7); Eosinophils % (A) 2 %; HCT 42.6 % (39.0-53.0); HDW 2.63; HGB 14.4 gm/dL (13.0-17.5); Luc % (Auto) 4; Lymphocytes # (A) 3.4 k/uL (1.0-4.8); Lymphocytes % (A) 42 %; MCH 31.9 pg (25.0-35.0); MCHC 33.7 g/dL (31.0-37.0); MCV 94.6 fL (80.0-100.0); Mean Platelet Volume 8.2; Monocytes # (A) 0.6 k/uL (0-1.0); Monocytes % (A) 8 %; Neutrophils # (A) 3.7 k/uL (1.3-7.7); Neutrophils % (A) 45 %; RBC 4.51 m/uL (4.30-5.90); RDW 14.5 % (11.5-15.5); WBC 8.2 k/uL (3.8-10.6); WBC (Perox) 7.76
[2016-11-27 22:32] LABS: ALT 35 U/L (21-72); AST 27 U/L (17-59); Alkaline Phosphatase 67 U/L (38-126); Anion Gap 11 mmol/L; Blood Urea Nitrogen 15 mg/dL (9-20); Calcium 9.7 mg/dL (8.4-10.2); Carbon Dioxide 23 mmol/L (22-30); Chloride 110 mmol/L (98-107); Glucose 109 mg/dL (74-99); Magnesium 1.7 mg/dL (1.6-2.3); Non-African American GFR(MDRD) 52 (>60 ml/min/1.73 sqM); Potassium 4.2 mmol/L (3.5-5.1); Sodium 144 mmol/L (137-145); Total Bilirubin 0.5 mg/dL (0.2-1.3); Total Protein 7.5 g/dL (6.3-8.2)
[2016-11-27 22:37] LABS: INR 1.1 (<1.1)
[2016-11-27 22:38] LABS: Partial Thromboplastin Time 24.5 sec (22.0-30.0); Prothrombin Time 10.9 sec (9.0-12.0)
--- NOTE | 2016-11-27 22:39 | XR ---
EXAM: XR Chest, 2 Views CLINICAL HISTORY: Chest pain. TECHNIQUE: Frontal and lateral views of the chest. COMPARISON: CXR dated 02/03/2016. FINDINGS: Lungs: Lung volumes are slightly low. Suspected opacities at the lung bases, similar compared to prior CXR. Mid to upper lungs appear clear. Pulmonary vascularity appears within normal limits. Pleural space: No significant pleural effusion. No pneumothorax. Heart: Unremarkable. No cardiomegaly. Mediastinum: Stable mediastinum. Bones/joints: Unremarkable. IMPRESSION: No significant change compared to CXR dated 02/03/2016. Suspected opacities at the lung bases may be related to atelectasis although other subtle underlying pathology is not entirely excluded.
[2016-11-27 22:42] LABS: Creatine Kinase 104 U/L (55-170)
[2016-11-27 22:55] LABS: Creatine Kinase MB 0.8 ng/mL (0.0-2.4); Troponin I <0.012 ng/mL (0.000-0.034)
[2016-11-27] MEDS ORDERED: HEPARIN SODIUM,PORCINE 5,000 UNIT/ML 1 ML VIAL IV ONE (23:19)
[2016-11-27] MEDS ORDERED: NITROGLYCERIN SL TABS 0.4 MG TAB SUBLINGUAL PRN (23:19)
[2016-11-27] MEDS ORDERED: HEPARIN SODIUM,PORCINE 5,000 UNIT/ML 1 ML VIAL IV PRN (23:19)
[2016-11-27] MEDS ORDERED: HEPARIN SODIUM,PORCINE/D5W PMX 25,000 UNIT in DEXTROSE/WATER 1 500ML.BAG IV SCH (23:30)
[2016-11-28 00:34] VITALS: RESP 18
[2016-11-28] MEDS: oxyCODONE-APAP 10-325MG 1 EACH TAB PO PRN ×2 (01:15→08:32)
[2016-11-28] MEDS: GEMFIBROZIL 600 MG TAB PO SCH ×2 (01:19→08:35)
[2016-11-28] MEDS: GABAPENTIN 400 MG CAP PO SCH ×2 (01:19→08:32)
[2016-11-28] MEDS: BACLOFEN 10 MG TAB PO SCH ×2 (01:19→08:35)
[2016-11-28] MEDS: NITROGLYCERIN OINT 1 INCH/GM PACKET TOPICAL SCH ×3 (01:20→10:10)
[2016-11-28] MEDS ORDERED: TEMAZEPAM 30 MG CAP PO SCH ×2 (01:21→21:00)
[2016-11-28] MEDS: ALPRAZolam 0.5 MG TAB PO SCH ×2 (01:27→08:35)
[2016-11-28 05:04] LABS: Mean Platelet Volume 8.5
[2016-11-28 05:29] LABS: Creatine Kinase 80 U/L (55-170)
[2016-11-28 05:42] LABS: Creatine Kinase MB 0.7 ng/mL (0.0-2.4); Troponin I <0.012 ng/mL (0.000-0.034)
[2016-11-28 06:52] LABS: Cholesterol 182 mg/dL (<200); HDL Cholesterol 43 mg/dL (40-60); Triglycerides 133 mg/dL (<150)
[2016-11-28] MEDS ORDERED: SYMBICORT 160-4.5 MCG INHALER INHALATION SCH (08:00)
[2016-11-28 08:02] VITALS: TEMP 97.5
[2016-11-28] MEDS ORDERED: FLUTICASONE 50MCG/SPRAY NASAL 16GM EA NOSTRIL SCH (09:00)
[2016-11-28] MEDS ORDERED: LISINOPRIL 10 MG TAB PO SCH (09:00)
[2016-11-28] MEDS ORDERED: BACLOFEN 10 MG TAB PO SCH (09:00)
[2016-11-28] MEDS ORDERED: ALPRAZolam 0.5 MG TAB PO SCH (09:00)
[2016-11-28] MEDS ORDERED: GABAPENTIN 400 MG CAP PO SCH (09:00)
[2016-11-28] MEDS ORDERED: ASPIRIN 325 MG TAB PO SCH (09:00)
[2016-11-28] MEDS ORDERED: DOXYCYCLINE 50 MG CAP PO SCH (09:00)
[2016-11-28] MEDS ORDERED: CITALOPRAM HYDROBROMIDE 20 MG TAB PO SCH (09:00)
[2016-11-28] MEDS ORDERED: MONTELUKAST 10 MG TAB PO SCH (09:00)
[2016-11-28] MEDS ORDERED: PANTOPRAZOLE 40 MG TABLET PO SCH (09:00)
[2016-11-28] MEDS ORDERED: GEMFIBROZIL 600 MG TAB PO SCH (09:00)
--- NOTE | 2016-11-28 09:43 | P.CRDCN ---
History of Present Illness Consult date: 11/28/16 History of present illness: This is a 56-year-old gentleman with history of significant back problems, hypertension and hypercholesteremia with previous history of smoking. He is admitted by the emergency room with complaints of chest pain, back pain in the left arm pain. Patient has been taking Percocet for pain relief. Usually that would help his chest pain but this time it did not help. He also claims the pain goes from the middle of the chest to the middle of the back and also to the left arm. He claims Nitropaste might have helped with the pain to some extent. He claims that whenever he moves his left arm. His pain is aggravated. He is holding his shoulder still for fear of aggravating pain. His EKGs did not reveal any acute changes. His cardiac enzymes are negative. Though patient has risk factor profile, I don't think the current pains are cardiac in nature. I will recommend continued medical management for the pain. From cardiac standpoint, patient could be discharged home. However, because of his risk factor profile, patient may need outpatient stress test and echocardiogram. Thank you again for letting us to participate in the care of this patient. Review of Systems As per the chart Past Medical History Past Medical History: Asthma, CVA/TIA, Hyperlipidemia, Pneumonia Additional Past Medical History / Comment(s): back pain-LUMBAR, vertigo, STROKES BEHIND THE EYES,. difficulty swallowing. History of Any Multi-Drug Resistant Organisms: None Reported Past Surgical History: Appendectomy, Hernia Repair, Orthopedic Surgery Additional Past Surgical History / Comment(s): RT INGUINAL HERNIA INFANT, RT ROTATOR CUFF SX, Past Anesthesia/Blood Transfusion Reactions: No Reported Reaction Past Psychological History: Anxiety, Depression Smoking Status: Former smoker - Past Family History Father Family Medical History: Asthma, Cancer, COPD, Diabetes Mellitus, Hyperlipidemia , Hypertension Mother Family Medical History: Hypertension Medications and Allergies Home Medications Medication Instructions Recorded Confirmed Type ALPRAZolam [ALPRAZolam] 1 mg PO BID 11/25/15 11/27/16 History Citalopram Hydrobromide 40 mg PO DAILY 11/25/15 11/27/16 History [Citalopram HBr] Gemfibrozil [Lopid] 600 mg PO BID 11/25/15 11/27/16 History Temazepam [Restoril] 30 mg PO HS 11/25/15 11/27/16 History Budesonide/Formoterol Fumarate 1 puff INHALATION RT-BID 02/03/16 11/27/16 History [Symbicort 160-4.5 Mcg Inhaler] Omeprazole 20 mg PO DAILY 02/03/16 11/27/16 History Aspirin [Adult Low Dose Aspirin EC] 81 mg PO DAILY 03/20/16 11/27/16 History Montelukast [Singulair] 10 mg PO DAILY 06/29/16 11/27/16 History Lisinopril [Zestril] 10 mg PO DAILY 06/30/16 11/27/16 History Unknown Antibiotic 1 tab PO BID 11/27/16 11/27/16 History oxyCODONE-APAP 10-325MG [Percocet 1 tab PO QID PRN 11/27/16 11/27/16 History 10-325 mg] Allergies Allergy/AdvReac Type Severity Reaction Status Date / Time birds Allergy Wheezing Uncoded 11/27/16 21:42 Physical Exam Vitals: Vital Signs Temp Pulse Pulse Resp BP BP Pulse Ox 11/28/16 08:00 97.5 F L 56 L 18 106/65 98 11/28/16 04:00 18 11/28/16 03:59 97.8 F 55 L 18 120/68 95 11/28/16 00:43 18 11/28/16 00:33 97.6 F 53 L 18 135/83 97 11/28/16 00:00 97.8 F 55 L 14 132/84 97 11/27/16 22:29 58 L 16 140/93 99 11/27/16 21:39 97.6 F 58 L 24 152/85 96 Intake and Output 11/27/16 11/28/16 11/28/16 22:59 06:59 14:59 Intake Total 274.333 Balance 274.333 Intake: IV 160 Heparin Sodium,Porcine/ 160 D5w Pmx 25,000 unit In Dextrose/Water 1 500ml. bag @ 10.48 UNITS/KG/HR 20.06 mls/hr IV .Q24H [facility] Rx#:[id number] Intake, IV Titration 114.333 Amount Heparin Sodium,Porcine/ 114.333 D5w Pmx 25,000 unit In Dextrose/Water 1 500ml. bag @ 10.48 UNITS/KG/HR 20.06 mls/hr IV .Q24H [facility] Rx#:[id number] Other: Voiding Method Toilet # Voids 2 Weight 95.708 kg 97.3 kg GENERAL EXAM: Patient is alert and oriented and doesn't appear to be in any acute distress HEENT: Normocephalic. Normal reaction of pupils, equal size, normal range of extraocular motion. No erythema or exudates in the throat. NECK: No masses, no nuchal rigidity. CHEST: No chest wall deformity. LUNGS: Equal air entry with no crackles or wheeze. HEART: S1 and S2 normal with no audible mumurs or gallops. Regular rhythm, femorals equal on both sides.. ABDOMEN: No hepatosplenomegaly, normal bowel sounds, no guarding or rigidity. SKIN: No rashes CENTRAL NERVOUS SYSTEM: No focal deficits. EXTREMITIES: No cyanosis, clubbing or edema. Patient has significant pain upon the movements of the left shoulder. Results 11/28/16 04:46 11/27/16 21:50 Cardiac Enzymes 11/27/16 11/27/16 11/28/16 Range/Units 21:50 21:50 04:46 AST 27 (17-59) U/L CK-MB (CK-2) 0.8 0.7 (0.0-2.4) ng/mL Troponin I <0.012 <0.012 (0.000-0.034) ng/mL Coagulation 11/27/16 11/28/16 Range/Units 21:50 04:46 PT 10.9 (9.0-12.0) sec APTT 24.5 48.7 H (22.0-30.0) sec Lipids 11/28/16 Range/Units 04:46 Triglycerides 133 (<150) mg/dL Cholesterol 182 (<200) mg/dL HDL Cholesterol 43 (40-60) mg/dL CBC 11/27/16 11/28/16 Range/Units 21:50 04:46 WBC 8.2 (3.8-10.6) k/uL RBC 4.51 (4.30-5.90) m/uL Hgb 14.4 (13.0-17.5) gm/dL Hct 42.6 (39.0-53.0) % Plt Count 278 234 (150-450) k/uL Comprehensive Metabolic Panel 11/27/16 Range/Units 21:50 Sodium 144 (137-145) mmol/L Potassium 4.2 (3.5-5.1) mmol/L Chloride 110 H (98-107) mmol/L Carbon Dioxide 23 (22-30) mmol/L BUN 15 (9-20) mg/dL Creatinine 1.41 H (0.66-1.25) mg/dL Glucose 109 H (74-99) mg/dL Calcium 9.7 (8.4-10.2) mg/dL AST 27 (17-59) U/L ALT 35 (21-72) U/L Alkaline Phosphatase 67 (38-126) U/L Total Protein 7.5 (6.3-8.2) g/dL Albumin 4.5 (3.5-5.0) g/dL Current Medications Generic Name Dose Route Start Last Admin Trade Name Freq PRN Reason Stop Dose Admin Alprazolam 1 mg 11/28/16 01:20 11/28/16 08:35 Xanax PO 1 mg BID FRIZT Administration Aspirin 325 mg 11/28/16 09:00 11/28/16 08:35 Aspirin PO 325 mg DAILY FRITZ Administration Baclofen 10 mg 11/28/16 00:40 11/28/16 08:35 Lioresal PO 10 mg BID FRITZ Administration Budesonide/Formoterol Fumarate 1 puff 11/28/16 08:00 11/28/16 08:17 Symbicort 160-4.5 Mcg Inhaler INHALATION 1 puff RT-BID FRITZ Administration Citalopram Hydrobromide 40 mg 11/28/16 09:00 11/28/16 08:35 Celexa PO 40 mg DAILY FRITZ Administration Doxycycline Monohydrate 100 mg 11/28/16 09:00 11/28/16 08:35 Vibramycin PO 100 mg BID FRITZ Administration Fluticasone Propionate 2 spray 11/28/16 09:00 11/28/16 08:31 Flonase Nasal Winfred EA NOSTRIL 2 spray DAILY FRITZ Administration Gabapentin 400 mg 11/28/16 00:41 11/28/16 08:32 Neurontin PO 400 mg TID FRITZ Administration Gemfibrozil 600 mg 11/28/16 00:41 11/28/16 08:35 Lopid PO 600 mg BID FR[facility]Z Administration Heparin Sodium (Porcine) 0 unit 11/27/16 23:19 Heparin IV Q6HR PRN Low PTT Protocol Heparin Sodium/Dextrose 25,000 500 mls @ 20.06 mls/hr 11/27/16 23:30 05:44 unit/ IV Solution IV 10.44 units/kg/hr .Q24H [facility] 20 mls/hr Protocol Titration 10.48 UNITS/KG/HR Lisinopril 10 mg 11/28/16 09:00 11/28/16 08:35 Zestril PO 10 mg DAILY FRITZ Administration Montelukast Sodium 10 mg 11/28/16 09:00 11/28/16 08:32 Singulair PO 10 mg DAILY FR[facility]Z Administration Nitroglycerin 1 inch 11/28/16 00:00 11/28/16 03:52 Nitro-Bid Oint TOPICAL 1 inch Q6HR [facility]Z Administration Nitroglycerin 0.4 mg 11/27/16 23:19 Nitrostat SUBLINGUAL Q5M PRN Chest Pain Oxycodone/Acetaminophen 1 each 11/27/16 23:22 11/28/16 08:32 Percocet 10-325 PO 1 each QID PRN Administration Pain Pantoprazole Sodium 40 mg 11/28/16 09:00 11/28/16 08:35 Protonix PO 40 mg DAILY FR[facility]Z Administration Temazepam 30 mg 11/28/16 01:21 11/28/16 01:27 Restoril PO 30 mg HS FR[facility]Z Administration Intake and Output 11/27/16 11/28/16 11/28/16 22:59 06:59 14:59 Intake Total 274.333 Balance 274.333 Intake: IV 160 Heparin Sodium,Porcine/ 160 D5w Pmx 25,000 unit In Dextrose/Water 1 500ml. bag @ 10.48 UNITS/KG/HR 20.06 mls/hr IV .Q24H [facility] Rx#:[id number] Intake, IV Titration 114.333 Amount Heparin Sodium,Porcine/ 114.333 D5w Pmx 25,000 unit In Dextrose/Water 1 500ml. bag @ 10.48 UNITS/KG/HR 20.06 mls/hr IV .Q24H [facility] Rx#:[id number] Other: Voiding Method Toilet # Voids 2 Weight 95.708 kg 97.3 kg 11/28/16 04:46 11/27/16 21:50 EKG Interpretations (text) Sinus rhythm Assessment and Plan (1) Hyperlipidemia Status: Acute (2) Chest pain Status: Acute (3) Hypertension Status: Acute (4) Renal insufficiency Status: Acute Plan: This patient is admitted with chest pain and left arm pain. His pain appeared to be atypical and muscular skeletal. Cardiac enzymes are negative. EKG did not reveal any acute changes. From Cardec standpoint. Patient will be discharged home. He should be considered in the near future, for outpatient stress test and echo , because of risk factor profile. ,
[2016-11-28] MEDS ORDERED: NICOTINE 14MG/24HR PATCH TRANSDERM SCH (10:45)
[2016-11-28 10:53] LABS: Creatine Kinase 81 U/L (55-170)
[2016-11-28 11:07] LABS: Creatine Kinase MB 0.7 ng/mL (0.0-2.4); Troponin I <0.012 ng/mL (0.000-0.034)
[2016-11-28 12:21] VITALS: BP 108/54; PULSE 54
--- NOTE | 2016-11-28 14:22 | P.HPIM ---
History of Present Illness This is a 56-year-old gentleman with history of significant back problems, hypertension and hypercholesteremia with previous history of smoking. He is admitted by the emergency room with complaints of chest pain, back pain in the left arm pain which is worse with movement of the left arm patient appears to have a skin no skeletal pain from rotator cuff injury. Patient has been taking Percocet without significant pain relief. Usually that would help his chest pain but this time it did not help. He also claims the pain goes from the middle of the chest to the middle of the back and also to the left arm. He claims Nitropaste might have helped with the pain to some extent. His pain is aggravated. He is holding his shoulder still for fear of aggravating pain. His EKGs did not reveal any acute changes. His cardiac enzymes are negative. Though patient has risk factor profile, I don't think the current pains are cardiac in nature. Patient was oriented with cardiology and patient will need orthopedic surgery evaluation patient will be referred to arthritic surgery and patient was given prescription for tramadol along with Percocet for inflammation and patient active and passive movements of the left, restricted. Review of Systems REVIEW OF SYSTEMS: CONSTITUTIONAL: No fever, no malaise, no fatigue. HEENT: No recent visual problems or hearing problems. Denied any sore throat. CARDIOVASCULAR: No chest pain, orthopnea, PND, no palpitations, no syncope. PULMONARY: No shortness of breath, no cough, no hemoptysis. GASTROINTESTINAL: No diarrhea, no nausea, no vomiting, no abdominal pain. Normoactive bowel sounds. NEUROLOGICAL: No headaches, no weakness, no numbness. HEMATOLOGICAL: Denies any bleeding or petechiae. GENITOURINARY: Denies any burning micturition, frequency, or urgency. MUSCULOSKELETAL/RHEUMATOLOGICAL: As described in HPI ENDOCRINE: Denies any polyuria or polydipsia. The rest of the 14-point review of systems is negative. Past Medical History Past Medical History: Asthma, CVA/TIA, Hyperlipidemia, Pneumonia Additional Past Medical History / Comment(s): back pain-LUMBAR, vertigo, STROKES BEHIND THE EYES,. difficulty swallowing. History of Any Multi-Drug Resistant Organisms: None Reported Past Surgical History: Appendectomy, Hernia Repair, Orthopedic Surgery Additional Past Surgical History / Comment(s): RT INGUINAL HERNIA INFANT, RT ROTATOR CUFF SX, Past Anesthesia/Blood Transfusion Reactions: No Reported Reaction Past Psychological History: Anxiety, Depression Smoking Status: Former smoker - Past Family History Father Family Medical History: Asthma, Cancer, COPD, Diabetes Mellitus, Hyperlipidemia , Hypertension Mother Family Medical History: Hypertension Medications and Allergies Home Medications Medication Instructions Recorded Confirmed Type ALPRAZolam 1 mg PO BID 11/25/15 11/27/16 History Citalopram Hydrobromide 40 mg PO DAILY 11/25/15 11/27/16 History [Citalopram HBr] Gemfibrozil [Lopid] 600 mg PO BID 11/25/15 11/27/16 History Temazepam [Restoril] 30 mg PO HS 11/25/15 11/27/16 History Budesonide/Formoterol Fumarate 1 puff INHALATION RT-BID 02/03/16 11/27/16 History [Symbicort 160-4.5 Mcg Inhaler] Omeprazole 20 mg PO DAILY 02/03/16 11/27/16 History Aspirin [Adult Low Dose Aspirin EC] 81 mg PO DAILY 03/20/16 11/27/16 History Montelukast [Singulair] 10 mg PO DAILY 06/29/16 11/27/16 History oxyCODONE-APAP 10-325MG [Percocet 1 tab PO QID PRN 11/27/16 11/27/16 History 10-325 mg] Doxycycline Monohydrate [Monodox] 100 mg PO Q12HR 11/28/16 11/28/16 History Allergies Allergy/AdvReac Type Severity Reaction Status Date / Time birds Allergy Wheezing Uncoded 11/27/16 21:42 Physical Exam Vitals: Vital Signs Temp Pulse Pulse Resp BP BP Pulse Ox 11/28/16 12:00 97.5 F L 54 L 18 108/54 96 11/28/16 10:07 68 120/76 11/28/16 08:00 97.5 F L 56 L 18 106/65 98 11/28/16 04:00 18 11/28/16 03:59 97.8 F 55 L 18 120/68 95 11/28/16 00:43 18 11/28/16 00:33 97.6 F 53 L 18 135/83 97 11/28/16 00:00 97.8 F 55 L 14 132/84 97 11/27/16 22:29 58 L 16 140/93 99 11/27/16 21:39 97.6 F 58 L 24 152/85 96 Intake and Output 11/27/16 11/28/16 11/28/16 22:59 06:59 14:59 Intake Total 274.333 Balance 274.333 Intake: IV 160 Heparin Sodium,Porcine/ 160 D5w Pmx 25,000 unit In Dextrose/Water 1 500ml. bag @ 10.48 UNITS/KG/HR 20.06 mls/hr IV .Q24H [facility] Rx#:[id number] Intake, IV Titration 114.333 Amount Heparin Sodium,Porcine/ 114.333 D5w Pmx 25,000 unit In Dextrose/Water 1 500ml. bag @ 10.48 UNITS/KG/HR 20.06 mls/hr IV .Q24H [facility] Rx#:[id number] Other: Voiding Method Toilet Toilet # Voids 2 Weight 95.708 kg 97.3 kg PHYSICAL EXAMINATION: GENERAL: The patient is alert and oriented x3, not in any acute distress. Well developed, well nourished. HEENT: Pupils are round and equally reacting to light. EOMI. No scleral icterus. No conjunctival pallor. Normocephalic, atraumatic. No pharyngeal erythema. No thyromegaly. CARDIOVASCULAR: S1 and S2 present. No murmurs, rubs, or gallops. PULMONARY: Chest is clear to auscultation, no wheezing or crackles. ABDOMEN: Soft, nontender, nondistended, normoactive bowel sounds. No palpable organomegaly. MUSCULOSKELETAL: Patient is holding his left arm medially and patient's range of motion is restricted passively and actively. Does have severe pain with movement of his hand. Patient appears to have some neck involvement as well. EXTREMITIES: No cyanosis, clubbing, or pedal edema. NEUROLOGICAL: Gross neurological examination did not reveal any focal deficits. SKIN: No rashes. Results CBC & Chem 7: 11/28/16 04:46 11/27/16 21:50 Labs: Abnormal Lab Results - Last 24 Hours (Table) 11/27/16 11/28/16 11/28/16 Range/Units 21:50 04:46 04:46 APTT 48.7 H (22.0-30.0) sec Chloride 110 H (98-107) mmol/L Creatinine 1.41 H (0.66-1.25) mg/dL Glucose 109 H (74-99) mg/dL LDL Cholesterol, Calc 112 H (0-99) mg/dL Thrombosis Risk Factor Assmnt - Choose All That Apply Any of the Below Risk Factors Present?: Yes Each Factor Represents 1 point: Age 41-60 years, Obesity (BMI >25) Other Risk Factors: No Other congenital or acquired thrombophilia - If yes, enter type in comment: No Thrombosis Risk Factor Assessment Total Risk Factor Score: 2 Thrombosis Risk Factor Assessment Level: Low Risk Assessment and Plan Plan: #1 chest pain: Rule out acute coronary syndromes, rule out unstable angina. Patient was ordered by cardiology. Patient has musculoskeletal chest pain secondary to either rotator cuff injury or cervical degenerative spine disease. As mentioned above patient will report orthopedic surgery as an outpatient. #2 hypertension: Because of the low normal blood pressures will cut down the lisinopril to have. #3 asthma without any acute exacerbation #4 hyperlipidemia: Patient will continue his statin.
--- NOTE | 2016-11-28 14:23 | P.DS ---
Providers Date of admission: 11/27/16 23:19 Attending physician: Latasha Smith Consults: 11/27/16 23:19 Consult Physician Urgent Consulting Provider: Maritr Qiu Consult Reason/Comments: cp Do you want consulting provider notified?: Yes Primary care physician: Fabiana Monroy [facility] Course: As mentioned in HPI Patient Condition at Discharge: Fair Plan - Discharge Summary New Discharge Prescriptions: New traMADol HCL [Ultram] 50 mg PO Q4HR PRN #30 tab PRN Reason: Pain Continue Temazepam [Restoril] 30 mg PO HS ALPRAZolam 1 mg PO BID Citalopram Hydrobromide [Citalopram HBr] 40 mg PO DAILY Gemfibrozil [Lopid] 600 mg PO BID Omeprazole 20 mg PO DAILY Budesonide/Formoterol Fumarate [Symbicort 160-4.5 Mcg Inhaler] 1 puff INHALATION RT-BID Aspirin [Adult Low Dose Aspirin EC] 81 mg PO DAILY Gabapentin [Neurontin] 400 mg PO TID #90 cap Montelukast [Singulair] 10 mg PO DAILY Baclofen 10 mg PO BID #60 tablet oxyCODONE-APAP 10-325MG [Percocet 10-325 mg] 1 tab PO QID PRN PRN Reason: Pain Doxycycline Monohydrate [Monodox] 100 mg PO Q12HR Changed Lisinopril [Zestril] 5 mg PO DAILY #0 Discharge Medication List ALPRAZolam 1 mg PO BID 11/25/15 [History] Citalopram Hydrobromide [Citalopram HBr] 40 mg PO DAILY 11/25/15 [History] Gemfibrozil [Lopid] 600 mg PO BID 11/25/15 [History] Temazepam [Restoril] 30 mg PO HS 11/25/15 [History] Budesonide/Formoterol Fumarate [Symbicort 160-4.5 Mcg Inhaler] 1 puff INHALATION RT-BID 02/03/16 [History] Omeprazole 20 mg PO DAILY 02/03/16 [History] Aspirin [Adult Low Dose Aspirin EC] 81 mg PO DAILY 03/20/16 [History] Gabapentin [Neurontin] 400 mg PO TID #90 cap 05/04/16 [Rx] Montelukast [Singulair] 10 mg PO DAILY 06/29/16 [History] Baclofen 10 mg PO BID #60 tablet 11/08/16 [Rx] oxyCODONE-APAP 10-325MG [Percocet 10-325 mg] 1 tab PO QID PRN 11/27/16 [History] Doxycycline Monohydrate [Monodox] 100 mg PO Q12HR 11/28/16 [History] Lisinopril [Zestril] 5 mg PO DAILY #0 11/28/16 [Rx] traMADol HCL [Ultram] 50 mg PO Q4HR PRN #30 tab 11/28/16 [Rx] Follow up Appointment(s)/Referral(s): Dimitrios Reyez DO [Doctor of Osteopathic Medicine] - 3 Days Fabiana Monroy MD [Primary Care Provider] - 3 Days Discharge Disposition: HOME SELF-CARE
== END 2016-11-28 15:00 | disposition home or self-care (01) ==
LOC: EC 21:31 → 3OBS 23:19
PROVIDERS: ADMIT Hospitalist; ATTEND Hospitalist
DX: R07.89 Other chest pain (principal); M54.9 Dorsalgia, unspecified; M79.602 Pain in left arm; I10 Essential (primary) hypertension; J45.909 Unspecified asthma, uncomplicated; E78.5 Hyperlipidemia, unspecified; E78.00 Pure hypercholesterolemia, unspecified; N28.9 Disorder of kidney and ureter, unspecified; F41.9 Anxiety disorder, unspecified; F32.9 Major depressive disorder, single episode, unspecified; Z79.899 Other long term (current) drug therapy; Z79.51 Long term (current) use of inhaled steroids; Z79.82 Long term (current) use of aspirin; Z91.048 Other nonmedicinal substance allergy status; Z86.73 Personal history of transient ischemic attack (TIA), and cerebral infarction without residual deficits; Z87.01 Personal history of pneumonia (recurrent); Z87.891 Personal history of nicotine dependence; Z83.3 Family history of diabetes mellitus
CPT/HCPCS: 96376 ×2; 99285; 96365; 96366; 36415; 94640; 93005; 80061; 80053; 82550 ×2; 82553 ×2; 83735; 84484 ×2; 85025; 85049; 85610; 85730 ×2; 71020; G0378 ×2; J1644 ×2

== ENCOUNTER → 2016-12-06 | Outpatient (CLI) | payer OTHER ==
[2016-12-06 11:07] VITALS: BP 138/83; PULSE 64; RESP 18; TEMP 98
--- NOTE | 2016-12-06 11:28 | P.PN ---
Progress Note - Text Patient returns for followup for chronic back pain with mild radiation to the legs. Patient underwent bilateral lumbar RFA with good relief but more recently had a fall where he hurt his shoulder. Even though nitro relieved his pain in the ER, his cardiac enzymes were negative and pain was deemed to be non- cardiac and he was instructed to see an orthopedic surgeon. Patient continues on Percocet and baclofen medications for pain with good relief. Patient insists that he is taking them and denies adverse drug effects from medications. Today, pt denies new-onset weakness, bowel/bladder incontinence, or any other signs or symptoms of cauda equina syndrome. There are no signs of acute intoxication, and no indications of medication diversion or overuse. In addition to above, 13-point review of systems is also negative for chest pain , shortness of breath, changes in vision, changes in hearing, new onset weakness , abdominal pain, diarrhea, extreme fatigue, malaise, fever, skin changes, homicidal or suicidal ideation, or bowel or bladder incontinence. Vital Signs: Reviewed in EMR Gen: WDWN, AAOx3, NAD HEENT: NCAT, EOMI, hearing grossly normal Pulm: resp unlabored Abd: soft, NT, ND Neck: supple, trachea midline UE: pain with motion of left shoulder in any direction ROM in flexion lumbar spine: reduced ROM in extension lumbar spine: reduced Lumbar paravertebral tenderness: + Facet loading: + bilateral SI joint tenderness: + R side > L side Anibal's test: + R side > L Straight leg raise: neg bilateral Neuro: CN II-XII grossly intact, muscle strength lower extremities PRESERVED Imaging: Reviewed in EMR Assessment: 1. lumbar spondylosis without myelopathy 2. SI joint dysfunction 3. chronic pain syndrome Plan: 1. Explanation: Opioid and psychological risk scores were reviewed. Diagnoses , prognoses, and multiple treatment options including but not limited to physical therapy, interventional therapies, adjuvant medical therapies, narcotic medication therapies, and surgery were discussed with the patient and all questions were answered to the patient's satisfaction. 2. Opioid agreement: Patient has previously signed narcotic agreement, and was orally counseled to not overuse, abuse, divert, or cell medications, and to take them as prescribed by only 1 healthcare provider. The patient was also counseled to store opioid medications in a safe and preferably locked location. Patient was also counseled against driving or operating heavy equipment while using narcotic medications and also to not use alcohol or any illicit or recreational drugs. The patient verbalized understanding that lack of compliance with any of the above and likely result in failure to renew narcotic prescriptions, possible discharge from the clinic, and possible legal ramifications thereafter if indicated. 3. Counseling: The patient was counseled extensively on BODY MASS INDEX, EXERCISE. Specifically, the patient was instructed regarding the importance of obesity, and exercise in the context of both chronic pain and overall health. 4. Procedures: none for now, patient may need shoulder surgery 5. Consultations: None 6. Investigations: None 7. Medications: Percocet 10/325 #90 with no refills; baclofen 10 mg #60 with two refills 8. Disposition: f/u for procedure as scheduled PQRS measures: 1-Patient's medications are documented in the chart. 2-Tobacco use is negative 3-Patient has had a pneumococcal vaccine. 4-Advanced care planning discussed, patient unable to give. 5-Opioid contract signed with the patient. 6-Pain positive, follow-up visit or procedure scheduled 7-Patient's blood pressure measured and documented, and patient will follow up with the primary care due to hypertension. 8-Patient's weight was measured, and body mass index ABOVE the normal limits, and counseling was done. Patient instructed to follow up with PCP. 9-Patient WAS NOT identified as an unhealthy alcohol user.
== END ==
LOC: PNWHC3 10:45
PROVIDERS: ATTEND Anesthesiology
DX: M47.816 Spondylosis without myelopathy or radiculopathy, lumbar region (principal); M53.3 Sacrococcygeal disorders, not elsewhere classified; Z79.891 Long term (current) use of opiate analgesic; Z79.899 Other long term (current) drug therapy
CPT/HCPCS: 99211

== ENCOUNTER → 2017-01-10 | Outpatient (CLI) | payer OTHER ==
[2017-01-10 13:49] VITALS: BP 131/91; PULSE 58; RESP 18; TEMP 97.9
--- NOTE | 2017-01-10 14:07 | P.PN ---
Progress Note - Text Patient returns for followup for chronic back pain with mild radiation to the legs. Patient underwent bilateral lumbar RFA with good relief but more recently had a fall where he hurt his shoulder. Even though nitro relieved his pain in the ER, his cardiac enzymes were negative and pain was deemed to be non- cardiac and he was instructed to see an orthopedic surgeon. Dr. Alvarado ordered MRI of patient's C-spine; result below. Patient continues on Percocet and baclofen medications for pain with good relief. Patient insists that he is taking them and denies adverse drug effects from medications. Today, pt denies new-onset weakness, bowel/bladder incontinence, or any other signs or symptoms of cauda equina syndrome. There are no signs of acute intoxication, and no indications of medication diversion or overuse. In addition to above, 13-point review of systems is also negative for chest pain , shortness of breath, changes in vision, changes in hearing, new onset weakness , abdominal pain, diarrhea, extreme fatigue, malaise, fever, skin changes, homicidal or suicidal ideation, or bowel or bladder incontinence. Vital Signs: Reviewed in EMR Gen: WDWN, AAOx3, NAD HEENT: NCAT, EOMI, hearing grossly normal Pulm: resp unlabored Abd: soft, NT, ND Neck: + cervical facet tenderness; Spurling's LUE UE: pain with motion of left shoulder in any direction ROM in flexion lumbar spine: reduced ROM in extension lumbar spine: reduced Lumbar paravertebral tenderness: + Facet loading: + bilateral SI joint tenderness: + R side > L side Anibal's test: + R side > L Straight leg raise: neg bilateral Neuro: CN II-XII grossly intact, muscle strength lower extremities PRESERVED Imaging: MRI cervical spine dated 12/18/2016 demonstrates a left paracentral disc osteophyte compress causing mild central stenosis at the C6-C7 level with moderate right and moderate to severe left foraminal stenosis secondary to facet and uncovertebral joint hypertrophy. At the C4-C5 level there is a small left paracentral disc osteophyte complex indenting the thecal sac without any cord compression or spinal canal stenosis. There is moderate left foraminal stenosis secondary to facet and uncovertebral joint hypertrophy. Assessment: 1. lumbar spondylosis without myelopathy 2. SI joint dysfunction 3. chronic pain syndrome 4. cervical radiculopathy Plan: 1. Explanation: Opioid and psychological risk scores were reviewed. Diagnoses , prognoses, and multiple treatment options including but not limited to physical therapy, interventional therapies, adjuvant medical therapies, narcotic medication therapies, and surgery were discussed with the patient and all questions were answered to the patient's satisfaction. 2. Opioid agreement: Patient has previously signed narcotic agreement, and was orally counseled to not overuse, abuse, divert, or cell medications, and to take them as prescribed by only 1 healthcare provider. The patient was also counseled to store opioid medications in a safe and preferably locked location. Patient was also counseled against driving or operating heavy equipment while using narcotic medications and also to not use alcohol or any illicit or recreational drugs. The patient verbalized understanding that lack of compliance with any of the above and likely result in failure to renew narcotic prescriptions, possible discharge from the clinic, and possible legal ramifications thereafter if indicated. 3. Counseling: The patient was counseled extensively on BODY MASS INDEX, EXERCISE. Specifically, the patient was instructed regarding the importance of obesity, and exercise in the context of both chronic pain and overall health. 4. Procedures: cervical SOLOMON series 5. Consultations: None 6. Investigations: None 7. Medications: none prescribed 8. Disposition: f/u for procedure as scheduled PQRS measures: 1-Patient's medications are documented in the chart. 2-Tobacco use is negative 3-Patient has had a pneumococcal vaccine. 4-Advanced care planning discussed, patient unable to give. 5-Opioid contract signed with the patient. 6-Pain positive, follow-up visit or procedure scheduled 7-Patient's blood pressure measured and documented, and patient will follow up with the primary care due to hypertension. 8-Patient's weight was measured, and body mass index ABOVE the normal limits, and counseling was done. Patient instructed to follow up with PCP. 9-Patient WAS NOT identified as an unhealthy alcohol user.
== END ==
LOC: PNWHC3 12:46
PROVIDERS: ATTEND Anesthesiology
DX: M47.26 Other spondylosis with radiculopathy, lumbar region (principal); M53.3 Sacrococcygeal disorders, not elsewhere classified; Z79.891 Long term (current) use of opiate analgesic
CPT/HCPCS: 99211

== ENCOUNTER → 2017-01-31 | Day surgery (SDC) | payer OTHER ==
[2017-01-25 13:00] VITALS: BMI 29.1
[~2017-01-31] MED LIST changes: +LACTATED RINGERS 1,000 ML IV ONE; -LACTATED RINGERS 1,000 ML IV SCH
== END ==
LOC: ORPAIN 10:41
PROVIDERS: ATTEND Anesthesiology
DX: Z53.9 Procedure and treatment not carried out, unspecified reason (principal)

== ENCOUNTER 2017-02-06 07:18 | Day surgery (SDC) | payer OTHER ==
[2017-02-05 08:32] VITALS: BMI 29.1
[2017-02-06] MEDS ORDERED: LACTATED RINGERS 1,000 ML IV SCH (07:45)
[2017-02-06 07:52] VITALS: RESP 18; TEMP 98.1
[2017-02-06] MEDS ORDERED: LIDOCAINE 1% 20 ML VIAL (10MG/ML) FOR IV START INTRADERMA ONE (07:56)
[2017-02-06] MEDS ORDERED: IV FLUID CONTINUATION 1,000 ML IV ONE (08:45)
[2017-02-06 09:01] VITALS: BP 121/72; PULSE 62
--- NOTE | 2017-02-06 10:05 | P.PCN ---
Date of Procedure: 02/06/17 Preoperative Diagnosis: Postoperative Diagnosis: Procedure(s) Performed: Implants: Surgeon: Ritesh Blair Pathology: none sent Condition: stable Disposition: PACU Indications for Procedure: Operative Findings: Description of Procedure: PREOPERATIVE DIAGNOSIS: Cervical radiculopathy. POSTOPERATIVE DIAGNOSIS: Cervical radiculopathy. PROCEDURE 1. Cervical epidural steroid injection under fluoroscopic guidance, C7-T1 level. 2. Cervical epidurogram. ANESTHESIA: Local anesthesia with 1% lidocaine and IV sedation with versed/ fentanyl. EBL: Minimal PROCEDURE INDICATION: The patient with neck pain and radiculitis unresponsive to conservative treatment consents for procedure. No use of blood thinners, RITO #1 today. PROCEDURE DESCRIPTION / TECHNIQUE: The patient was seen and identified in the preoperative area. Risks, benefits, complications, and alternatives were discussed with the patient (including but not limited to incomplete pain relief, bleeding, infection, nerve damage, and allergies to medications), the patient agreed to proceed with the procedure and signed the consent after all questions were answered. Patient was taken to the OR and time out was completed to verify proper patient , position, laterality of pain, and allergies. Pt was placed in the prone position. A pillow was placed under the patients chest to increase the cervical interlaminar space. The cervical area was prepped and draped in the usual sterile fashion. Critical pause was taken. Vital signs were closely monitored during the procedure. Conscious sedation was used during the procedure to decrease patients anxiety. Using anterior-posterior fluoroscopy, the C7-T1 interlaminar space was identified and the skin over this site was marked and then infiltrated with 1% lidocaine subcutaneously in a paramedian fashion. Subsequently, a 20-gauge 3-1/2 -inch Tuohy epidural needle was inserted and advanced toward the epidural space by means of the loss of resistance technique and guided by AP and lateral fluoroscopy. After negative aspiration for blood or CSF and in the absence of paresthesias, the correct needle position in the epidural space was verified with the injection of 1 mL of the water soluble contrast dye Omnipaque-180 and observing an excellent epidurogram with the epidural spread of the dye, after negative aspiration for blood and CSF and in the absence of paresthesias. Again after negative aspiration, a 5 ml mixture containing 10 mg of Decadron and 4 ml of preservative free Normal Saline solution was injected and a washout of epidurogram was seen. Needle was withdrawn intact, skin was cleansed, and bandages were applied. COMPLICATIONS: None COMMENTS: DISPOSITION / PLANS: The patient was placed in a supine position and transferred to the recovery area in a stable condition for observation. There was no evidence of upper extremity motor or sensory deficit after the procedure. Patient was discharged from the recovery room after meeting discharge criteria. Home discharge instructions were given to the patient by the staff. The patient was reexamined prior to discharge and there were no issues. The patient will schedule a repeat procedure in 2-4 weeks.
--- NOTE | 2017-02-06 11:07 | FL ---
EXAMINATION TYPE: FL guided pain mgmt statistic DATE OF EXAM: 02/06/2017 CLINICAL HISTORY: Neck pain. TECHNIQUE: Fluoroscopy. COMPARISON: None. FINDINGS: Fluoroscopic guidance was provided during pain relief procedure performed by Dr. Blair . A total of 7 seconds of fluoroscopic time was utilized during the procedure and two spot images are a cquired. Images acquired shows needle localization near cervicothoracic junction. IMPRESSION: As Above.
== END 2017-02-06 09:23 | disposition home or self-care (01) ==
LOC: ORPAIN 07:18
PROVIDERS: ATTEND Anesthesiology
DX: G89.4 Chronic pain syndrome (principal); M54.12 Radiculopathy, cervical region; Z79.891 Long term (current) use of opiate analgesic; Z79.899 Other long term (current) drug therapy
CPT/HCPCS: 62321; 99152; J2250; J1100; Q9965; J3010

== ENCOUNTER 2017-02-26 08:16 | Day surgery (SDC) | payer OTHER ==
[2017-02-20 15:27] VITALS: BMI 29.0
[2017-02-26] MEDS ORDERED: LACTATED RINGERS 1,000 ML IV ONE (09:38)
[2017-02-26 09:42] VITALS: RESP 16; TEMP 97.8
[2017-02-26] MEDS ORDERED: LIDOCAINE 1% 20 ML VIAL (10MG/ML) FOR IV START INTRADERMA ONE (09:46)
[2017-02-26] MEDS ORDERED: LACTATED RINGERS 600 ML IV ONE (10:15)
--- NOTE | 2017-02-26 10:18 | FL ---
EXAMINATION TYPE: FL guided pain mgmt statistic DATE OF EXAM: 02/26/2017 HISTORY: Flouroscopy time 7 seconds of fluoroscopy provided. IMPRESSION: 1. Fluoroscopy time.
[2017-02-26 10:35] VITALS: BP 117/74; PULSE 56
[2017-02-26] MEDS ORDERED: LACTATED RINGERS 1,000 ML IV SCH (10:45)
--- NOTE | 2017-02-28 09:13 | P.PCN ---
Date of Procedure: 02/26/17 Surgeon: Ritesh Blair Pathology: none sent Condition: stable Disposition: PACU Description of Procedure: PREOPERATIVE DIAGNOSIS: Cervical radiculopathy. POSTOPERATIVE DIAGNOSIS: Cervical radiculopathy. PROCEDURE 1. Cervical epidural steroid injection under fluoroscopic guidance, C7-T1 level. 2. Cervical epidurogram. ANESTHESIA: Local anesthesia with 1% lidocaine and IV sedation with versed/ fentanyl. EBL: Minimal PROCEDURE INDICATION: The patient with neck pain and radiculitis unresponsive to conservative treatment consents for procedure. No use of blood thinners, RITO #2 today with two weeks' relief from first procedure. PROCEDURE DESCRIPTION / TECHNIQUE: The patient was seen and identified in the preoperative area. Risks, benefits, complications, and alternatives were discussed with the patient (including but not limited to incomplete pain relief, bleeding, infection, nerve damage, and allergies to medications), the patient agreed to proceed with the procedure and signed the consent after all questions were answered. Patient was taken to the OR and time out was completed to verify proper patient , position, laterality of pain, and allergies. Pt was placed in the prone position. A pillow was placed under the patients chest to increase the cervical interlaminar space. The cervical area was prepped and draped in the usual sterile fashion. Critical pause was taken. Vital signs were closely monitored during the procedure. Conscious sedation was used during the procedure to decrease patients anxiety. Using anterior-posterior fluoroscopy, the C7-T1 interlaminar space was identified and the skin over this site was marked and then infiltrated with 1% lidocaine subcutaneously in a paramedian fashion. Subsequently, a 20-gauge 3-1/2 -inch Tuohy epidural needle was inserted and advanced toward the epidural space by means of the loss of resistance technique and guided by AP and lateral fluoroscopy. After negative aspiration for blood or CSF and in the absence of paresthesias, the correct needle position in the epidural space was verified with the injection of 1 mL of the water soluble contrast dye Omnipaque-180 and observing an excellent epidurogram with the epidural spread of the dye, after negative aspiration for blood and CSF and in the absence of paresthesias. Again after negative aspiration, a 4 ml mixture containing 20 mg of Decadron and 2 ml of preservative free Normal Saline solution was injected and a washout of epidurogram was seen. Needle was withdrawn intact, skin was cleansed, and bandages were applied. COMPLICATIONS: None COMMENTS: DISPOSITION / PLANS: The patient was placed in a supine position and transferred to the recovery area in a stable condition for observation. There was no evidence of upper extremity motor or sensory deficit after the procedure. Patient was discharged from the recovery room after meeting discharge criteria. Home discharge instructions were given to the patient by the staff. The patient was reexamined prior to discharge and there were no issues. The patient will schedule a third RITO in 2-4 weeks.
== END 2017-02-26 10:42 | disposition home or self-care (01) ==
LOC: ORPAIN 08:16
PROVIDERS: ATTEND Anesthesiology
DX: M54.12 Radiculopathy, cervical region (principal); I10 Essential (primary) hypertension; E78.5 Hyperlipidemia, unspecified; J45.909 Unspecified asthma, uncomplicated; F41.9 Anxiety disorder, unspecified; K21.9 Gastro-esophageal reflux disease without esophagitis; Z91.09 Other allergy status, other than to drugs and biological substances; Z79.82 Long term (current) use of aspirin; Z79.891 Long term (current) use of opiate analgesic; Z79.899 Other long term (current) drug therapy
CPT/HCPCS: 62321; J2250; J1100; Q9965; J3010; 99152

== ENCOUNTER 2017-03-20 05:36 | Day surgery (SDC) | payer OTHER ==
[2017-03-14 15:20] VITALS: BMI 29.0
[2017-03-20 06:32] VITALS: TEMP 98
[2017-03-20] MEDS ORDERED: LIDOCAINE 1% 20 ML VIAL (10MG/ML) FOR IV START INTRADERMA ONE (06:38)
[2017-03-20] MEDS ORDERED: LACTATED RINGERS 1,000 ML IV ONE (06:38)
[2017-03-20] MEDS ORDERED: LACTATED RINGERS 1,000 ML IV SCH (07:30)
[2017-03-20 07:32] VITALS: RESP 18
[2017-03-20 07:46] VITALS: BP 141/76; PULSE 60
[2017-03-20] MEDS ORDERED: IV FLUID CONTINUATION 1,000 ML IV ONE (07:47)
--- NOTE | 2017-03-20 08:28 | P.PCN ---
Date of Procedure: 03/20/17 Surgeon: Ritesh Blair Pathology: none sent Condition: stable Disposition: PACU Description of Procedure: PREOPERATIVE DIAGNOSIS: Cervical radiculopathy. POSTOPERATIVE DIAGNOSIS: Cervical radiculopathy. PROCEDURE 1. Cervical epidural steroid injection under fluoroscopic guidance, C7-T1 level. 2. Cervical epidurogram. ANESTHESIA: Local anesthesia with 1% lidocaine and IV sedation with versed/ fentanyl. EBL: Minimal PROCEDURE INDICATION: The patient with neck pain and radiculitis unresponsive to conservative treatment consents for procedure. No use of blood thinners, RITO #3 today with three weeks' relief from first procedure. PROCEDURE DESCRIPTION / TECHNIQUE: The patient was seen and identified in the preoperative area. Risks, benefits, complications, and alternatives were discussed with the patient (including but not limited to incomplete pain relief, bleeding, infection, nerve damage, and allergies to medications), the patient agreed to proceed with the procedure and signed the consent after all questions were answered. Patient was taken to the OR and time out was completed to verify proper patient , position, laterality of pain, and allergies. Pt was placed in the prone position. A pillow was placed under the patients chest to increase the cervical interlaminar space. The cervical area was prepped and draped in the usual sterile fashion. Critical pause was taken. Vital signs were closely monitored during the procedure. Conscious sedation was used during the procedure to decrease patients anxiety. Using anterior-posterior fluoroscopy, the C7-T1 interlaminar space was identified and the skin over this site was marked and then infiltrated with 1% lidocaine subcutaneously in a paramedian fashion. Subsequently, a 20-gauge 3-1/2 -inch Tuohy epidural needle was inserted and advanced toward the epidural space by means of the loss of resistance technique and guided by AP and lateral fluoroscopy. After negative aspiration for blood or CSF and in the absence of paresthesias, the correct needle position in the epidural space was verified with the injection of 1 mL of the water soluble contrast dye Omnipaque-180 and observing an excellent epidurogram with the epidural spread of the dye, after negative aspiration for blood and CSF and in the absence of paresthesias. Again after negative aspiration, a 4 ml mixture containing 20 mg of Decadron and 2 ml of preservative free Normal Saline solution was injected and a washout of epidurogram was seen. Needle was withdrawn intact, skin was cleansed, and bandages were applied. COMPLICATIONS: None COMMENTS: DISPOSITION / PLANS: The patient was placed in a supine position and transferred to the recovery area in a stable condition for observation. There was no evidence of upper extremity motor or sensory deficit after the procedure. Patient was discharged from the recovery room after meeting discharge criteria. Home discharge instructions were given to the patient by the staff. The patient was reexamined prior to discharge and there were no issues. Patient will schedule a follow-up in the clinic in 4-6 weeks.
--- NOTE | 2017-03-27 09:41 | FL ---
EXAMINATION TYPE: FL guided pain mgmt statistic DATE OF EXAM: 03/20/2017 CLINICAL HISTORY: Neck pain. TECHNIQUE: Fluoroscopy. COMPARISON: None. FINDINGS: Fluoroscopic guidance was provided during pain relief procedure performed by Dr. Max . A total of 25 seconds of fluoroscopic time was utilized during the procedure and two spot images are acquired. Images acquired shows needle localization at level of lower cervical spine. IMPRESSION: As Above. MTDD
== END 2017-03-20 07:55 | disposition home or self-care (01) ==
LOC: ORPAIN 05:36
PROVIDERS: ATTEND Anesthesiology
DX: M54.12 Radiculopathy, cervical region (principal); I10 Essential (primary) hypertension; E78.5 Hyperlipidemia, unspecified; J45.909 Unspecified asthma, uncomplicated; F41.9 Anxiety disorder, unspecified; K21.9 Gastro-esophageal reflux disease without esophagitis; Z91.09 Other allergy status, other than to drugs and biological substances; Z79.891 Long term (current) use of opiate analgesic; Z79.899 Other long term (current) drug therapy; Z79.82 Long term (current) use of aspirin
CPT/HCPCS: 62321; 99152; 99153; J2250; J1100; Q9965; J3010

== ENCOUNTER → 2017-04-11 | Outpatient (CLI) | payer OTHER ==
[2017-04-11 13:01] VITALS: BP 130/76; PULSE 67; RESP 18
--- NOTE | 2017-04-11 13:33 | P.PN ---
Subjective Progress Note Date: 04/11/17 This is a follow-up visit for this 56 years male with a history of severe neck pain with radiation to the upper extremity,cervical radiculopathy status post cervical epidural steroid injections 3 , he reported that his neck pain and numbness improved significantly and he had no more numbness or pain in his cervical area, and the numbness in the upper extremity completely gone, but he is complaining of low back pain with radiation to the lower extremity associated with numbness and tingling sensation, is diagnosed in the past with lumbar degenerative disc disease and lumbar spondylosis and we have done radiofrequency ablation of the medial branch lumbar area or than 6 months ago, patient denies any motor or sensory deficits he denies any fever or night sweats and there is no change in the bowel movements or urination, he continued to use Percocet 10/325 every 6-8 hours, and baclofen 10 mg twice a day he denies any side effect of the medication he denies any excessive drowsiness or sleepiness and he reports a current pain medication helping him to control his pain Objective - Vital Signs Vital signs: Vital Signs Temp Pulse 67 04/11/17 12:53 Resp 18 04/11/17 12:53 BP 130/76 04/11/17 12:53 Pulse Ox 98 04/11/17 12:53 Intake & Output 04/10/17 04/11/17 04/11/17 18:59 06:59 18:59 Weight 97.069 kg - Exam Physical Examinations : 1-Constitutiona : Cooperative , not in acute distress . 2-HEENT : nech ; supple , no Lymphadenopathy , normal thyroid size . eyes : no ptosis , no icterus, no photophobia . ENT : normal of hearing , normal oropharynx , no Thrush . 3- Respiratory : Chest clear to auscultations Bilaterally , no wheezing , no Rhonchi . 4- Cardiovascular : regular rate and rhythem , S1 , S2 , no S3 , no S4. 5- Gastrointestinal : abdomen soft no tenderness , bowel sounds positive all four quadrents , no organomegally . 6- Genitourinary : Defferred . 7- neurologic : Cranial nerve II to XII intact , no focal neurological deffecit . 8-psychatric : alert , oriented X 3 , appropriate affect , intact judgment and insight . 9-Lymphatic : no Lymphadenopathy . 10- musculoskeltal : cervical spine = motor stregnth in the deltoid and biceps, motor stregnth biceps and the wrist extensors (C6) . motor stregnth in the triceps muscle . deep tendon reflexes normal at the biceps , l normal at Brachioradialis normal at the triceps , Lumber spine = normal moter stegnth lower extremities ,thigh and legs .5/5 deep tendon reflexes : normal Knee Jerk , normal ankle Jerk . positive lumber facet Loading Test strait leg raising test positive at 30 degree , RT ,LT , Fabere test positive RT and positive LT . 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 and current use of high-risk medication (opioids) Patient denies any side effects of the current pain medication and the current treatment/medication ML and the patient to do activity of daily living , Diagnoses, prognosis, treatment options, including but not limited to physical therapy, medication management, interventional therapies, and surgery, were discussed with the patient All the questions answered Patient signed the narcotic agreement, and he was orally counseled, not to overuse, not to abuse, not to Divert , not tp sell pain medication, and to take it as prescribed only, Patient was counseled not to drive or operate heavy equipment while using narcotic medication, and advised not to use alcohol or any Illicit drugs while using the narcotis, the patient's verbalized understanding that lack of compliance with any of the above instructions and will likely to cause discharge from the pain service, not to renew his narcotic prescriptions Medication managements= patient will be given prescription refills for 1-Percocet 10/325 every 6 hours dispensed 90 with 1 refill 2-baclofen 10 mg every 12 hours dispensed 60 with 1 refil Interventional pain management= none Refferal = none Follow-up= 2 months , Next visit we will do a urine drug screen
== END ==
LOC: PNWHC3 12:15
PROVIDERS: ATTEND Specialist
DX: M51.36 Other intervertebral disc degeneration, lumbar region (principal); M47.816 Spondylosis without myelopathy or radiculopathy, lumbar region; M46.86 Other specified inflammatory spondylopathies, lumbar region; Z79.891 Long term (current) use of opiate analgesic; Z79.899 Other long term (current) drug therapy
CPT/HCPCS: 99211

== ENCOUNTER → 2017-06-06 | Outpatient (CLI) | payer OTHER ==
[2017-06-06 13:36] VITALS: BP 114/77; RESP 16
--- NOTE | 2017-06-06 14:10 | P.PN ---
Subjective Progress Note Date: 06/06/17 This is follow-up visit for this patient with a history of severe and chronic neck pain with radiation to the upper extremity datewas cervical radiculopathy, status post cervical epidural steroid injections 3, he reported the injection improved his pain significantly, also patient complained of severe low back pain secondary to lumbar spondylosis and we have done lumbar radiofrequency ablation of the median branch Patients currently on Percocet 10/325 every 6 hours , and baclofen 10 mg twice a day Patient denies any side effects of the medication, denies excessive drowsiness or sleepiness, denies suicidal ideation, and reports that the current pain medication is helping To control the pain and improve activity of daily living Patient denies any motor or sensory deficit , patient denies any fever or night sweats, denies any change in the bowel movements or urination Physical Examinations : 1-Constitutiona : Cooperative , not in acute distress . 2-HEENT : nech ; supple , no Lymphadenopathy , no Thyromegaly , normal thyroid size . eyes : no ptosis , no icterus, no photophobia . ENT : normal of hearing , normal oropharynx , no Thrush . 3- Respiratory : Chest clear to auscultations Bilaterally , no wheezing , no Rhonchi . 4- Cardiovascular : regular rate and rhythem , S1 , S2 , no S3 , no S4. 5- Gastrointestinal : abdomen soft no tenderness , bowel sounds positive all four quadrents , no organomegally . 6- Genitourinary : Defferred . 7- neurologic : Cranial nerve II to XII intact , no focal neurological deffecit . 8-psychatric : alert , oriented X 3 , appropriate affect , intact judgment and insight . 9-Lymphatic : no Lymphadenopathy . 10- musculoskeltal : exams of the cervical spine = motor strength normal bilateral upper extremities exams of the Lumber spine = motor strength lower extremities ,thigh and legs .5/5 deep tendon reflexes : normal Knee Jerk , normal ankle Jerk . lumber facet Loading Test positive Assessment and plan = Chronic low back pain secondary to lumbar degenerative disc disease , lumbar spondylosis with facet arthropathy without myelopathy , Chronic neck pain with radiation to the upper extremities secondary to cervical radiculopathy , pain improved after the cervical epidural steroid injections chronic and current use of high-risk medication (Opioids). The patient was counseled about risk of opioid use, psychological risk associated with opioids and was orally counseled to not overuse , divert,or sell dictations to take medications as prescribed only , and to restore medication in safe location , and the patient counseled against driving while using narcotic medications, and also not to use alcohol or any illicit recreational drugs, the patient's verbalized understanding that the lack of compliance will result in failure to renew narcotic prescription and possible discharge from the clinic - diagnoses, prognosis, and treatment options including but not limited to physical therapy, surgical interventions, interventional therapies , and medication management including narcotics and adjuvant medication were discussed with the patient and all the questions answered Today we will do you do when drug screen, patient given prescription refill for Percocet 10/325 every 6 hours dispense 90 with 1 refill and baclofen 10 mg twice a day dispense 60 with 1 refill and he will be seen in the pain clinic in 2 months Objective - Vital Signs Vital signs: Vital Signs Temp Pulse Resp 16 06/06/17 13:23 BP 114/77 06/06/17 13:23 Pulse Ox 97 06/06/17 13:23 Intake & Output 06/05/17 06/06/17 06/06/17 18:59 06:59 18:59 Weight 99.337 kg
[2017-06-07 12:42] LABS: Serum Amphetamine Negative; Serum Barbiturates Negative; Serum Benzodiazepine Positive; Serum Cocaine Negative; Serum Methadone Negative; Serum Opiates Negative; Serum Phencyclidine Negative; Serum Propoxyphene Negative; Serum THC (Cannabis) Negative
== END | disposition home or self-care (01) ==
LOC: PNWHC3 13:02
PROVIDERS: ATTEND Specialist
DX: G89.29 Other chronic pain (principal); M54.2 Cervicalgia; M54.5 Low back pain; M54.12 Radiculopathy, cervical region; M51.36 Other intervertebral disc degeneration, lumbar region; M47.816 Spondylosis without myelopathy or radiculopathy, lumbar region; M46.86 Other specified inflammatory spondylopathies, lumbar region; Z79.891 Long term (current) use of opiate analgesic
CPT/HCPCS: 80307; G0463; 99211

== ENCOUNTER → 2017-08-01 | Outpatient (CLI) | payer OTHER ==
[2017-08-01 14:26] VITALS: BP 142/91; PULSE 61; RESP 18
--- NOTE | 2017-08-01 14:47 | P.PN ---
Subjective Progress Note Date: 08/01/17 This is follow-up visit for this patient with a history of severe and chronic low back pain secondary to lumbar degenerative disc disease, lumbar facet arthropathy, and chronic severe neck pains diagnosed cervical radiculopathy , then cervical epidural steroid injection which helped his neck pain and numbness in his upper extremities , and also we have done radiofrequency ablation of the medial branch lumbar area , and that helped his low back pain significantly , patient currently on Percocet 10/325 every 6 hours when necessary Patient denies any side effects of the medication, denies excessive drowsiness or sleepiness, denies suicidal ideation, and reports that the current pain medication is helping To control the pain and improve activity of daily living . Patient denies any motor or sensory deficit, denies change in bowel movement or urination, patient denies any fever or night sweats and patient here for follow-up visit and medication refill Objective - Vital Signs Vital signs: Vital Signs Temp Pulse 61 08/01/17 14:19 Resp 18 08/01/17 14:19 BP 142/91 08/01/17 14:19 Pulse Ox 98 08/01/17 14:19 Intake & Output 07/31/17 08/01/17 08/01/17 18:59 06:59 18:59 Weight 97.069 kg - Exam Physical Examinations : 1-Constitutiona : Cooperative , not in acute distress . 2-HEENT : nech ; supple , no Lymphadenopathy , normal thyroid size . eyes : no ptosis , no icterus, no photophobia . ENT : normal of hearing , normal oropharynx , no Thrush . 3- Respiratory : Chest clear to auscultations Bilaterally , no wheezing , no Rhonchi . 4- Cardiovascular : regular rate and rhythem , S1 , S2 , no S3 , no S4. 5- Gastrointestinal : abdomen soft no tenderness , bowel sounds positive all four quadrents , no organomegally . 6- Genitourinary : Defferred . 7- neurologic : Cranial nerve II to XII intact , no focal neurological deffecit . 8-psychatric : alert , oriented X 3 , appropriate affect , intact judgment and insight . 9-Lymphatic : no Lymphadenopathy . 10- musculoskeltal : cervical spine = motor stregnth in the deltoid and biceps, motor stregnth biceps and the wrist extensors (C6) . motor stregnth in the triceps muscle . deep tendon reflexes normal at the biceps , normal at Brachioradialis , normal at the Triceps positive cervical facet loading test . , Lumber spine = normal moter stegnth lower extremities ,thigh and legs .5/5 deep tendon reflexes : normal Knee Jerk , normal ankle Jerk . lumber facet Loading Test positive strait leg raising test positive at 30 degree Right , positve at 30 degree Left Fabere test positive Right and positive Left Assessment and Plan Plan: Assessment and plan= chronic low back pain secondary to lumbar degenerative disc disease , lumbar spondylosis with lumbar facet arthropathy , Cervical radiculopathy, improved after cervical epidural steroid injections chronic and current use of high-risk medication (opioids) Patient denies any side effects of the current pain medication and the current treatment/medication ML and the patient to do activity of daily living , Diagnoses, prognosis, treatment options, including but not limited to physical therapy, medication management, interventional therapies, and surgery, were discussed with the patient All the questions answered Patient signed the narcotic agreement, and he was orally counseled, not to overuse, not to abuse, not to Divert , not tp sell pain medication, and to take it as prescribed only, Patient was counseled not to drive or operate heavy equipment while using narcotic medication, and advised not to use alcohol or any Illicit drugs while using the narcotis, the patient's verbalized understanding that lack of compliance with any of the above instructions and will likely to cause discharge from the pain service, not to renew his narcotic prescriptions Medication managements= patient will be given prescription refills for Percocet 10/325 every 6 hours when necessary dispense 90 with 1 refill , Time with Patient: Less than 30
--- NOTE | 2017-08-01 14:50 | P.PN ---
Progress Note - Text Progress Note Date: 08/01/17 Urine drug screen was ordered today
== END | disposition home or self-care (01) ==
LOC: PNWHC3 13:39
PROVIDERS: ATTEND Specialist
DX: G89.29 Other chronic pain (principal); M54.5 Low back pain; M51.36 Other intervertebral disc degeneration, lumbar region; M47.816 Spondylosis without myelopathy or radiculopathy, lumbar region; M46.86 Other specified inflammatory spondylopathies, lumbar region; M54.12 Radiculopathy, cervical region; Z79.891 Long term (current) use of opiate analgesic
CPT/HCPCS: 80356; 99211

== ENCOUNTER → 2017-09-26 | Outpatient (CLI) | payer OTHER ==
[2017-09-26 14:47] VITALS: BP 136/85; PULSE 67; RESP 16
--- NOTE | 2017-09-26 15:08 | P.PN ---
Progress Note - Text Progress Note Date: 09/26/17 Chief complaint: bilateral shoulder pain worse on the right as well as lower back pain History of present illness: This is a 56 showed gentleman with a long-standing history of chronic pain in his neck as well as down his left arm. He reports 40 % reduction of his symptoms from his previous cervical steroid injection. He continues to receive pain medications from this clinic in the form of oxycodone 10 mg tablets 90 monthly. He also takes benzodiazepines to treat his significant anxiety stemming from a closed head injury. He will dissipate and significant physical activity including chopping wood to heat his home. Review of systems: 13-point review of systems is also negative for chest pain, shortness of breath, changes in vision, changes in hearing, new onset weakness, abdominal pain, diarrhea, extreme fatigue, malaise, fever, skin changes, homicidal or suicidal ideation, or bowel or bladder incontinence. Vital Signs: Reviewed in EMR Gen: WDWN, AAOx3, NAD HEENT: NTNC Pulm: resp unlabored Abd: soft, NT, ND Neck: Decreased range of motion. Facet loading: Positive in the lumbar spine Neuro: No focal motor deficits Imaging: Reviewed in EMR Assessment: * Plan: We will refill the patient's oxycodone today. I have reviewed his maps report it reveals expected results * We will send notification to his primary care physician to discuss weaning off his benzodiazepines and substituting for another anxiolytic. * I counseled him today extensively on the dangers of taking benzodiazepines and opiates. I strongly encouraged him not to take these at night when he takes his Restoril. 1. Medication management: I will refill the patient's oxycodone. I have reviewed his MAPS report. 2. Interventional procedures: The patient reports good benefit from his previous cervical epidural steroid injection. He will follow-up for this on an as-needed basis. 3. Counseling: Follow up with his primary care physician for discussion of alternative ways to manage his anxiety besides benzodiazepines. This may require referral to a psychiatrist. No additional testing was ordered today. Disposition: Will follow up in 1 month for medication management PQRS measures: 1-Patient's medications are documented in the chart. 2-Tobacco use is positive, counseling given 3-Patient has not had a pneumococcal vaccine. 4-Advanced care planning discussed, patient unable to give. 5-Opioid contract signed with the patient. 6-Pain positive, follow-up visit or procedure scheduled 7-Patient's blood pressure measured and documented, and WNL. 8-Patient's weight was measured, and body mass index ABOVE the normal limits, and counseling was done. Patient instructed to follow up with PCP. 9-Patient WAS NOT identified as an unhealthy alcohol user.
== END | disposition home or self-care (01) ==
LOC: PNWHC3 13:59
PROVIDERS: ATTEND Pain Medicine Pain Medicine
DX: G89.29 Other chronic pain (principal); M25.512 Pain in left shoulder; M25.511 Pain in right shoulder; M54.5 Low back pain; F41.9 Anxiety disorder, unspecified; M54.2 Cervicalgia; F17.200 Nicotine dependence, unspecified, uncomplicated; Z79.891 Long term (current) use of opiate analgesic; Z71.6 Tobacco abuse counseling
CPT/HCPCS: 99211

== ENCOUNTER → 2017-10-24 | Outpatient (CLI) | payer OTHER ==
[2017-10-24 13:53] VITALS: BP 159/96; PULSE 84; RESP 18
--- NOTE | 2017-10-24 14:20 | P.PN ---
Progress Note - Text Progress Note Date: 10/24/17 This is a 57-year-old male with history of neck mid back and lower back pain after a trauma. The patient takes Percocet 10 mg 3 times a day. He had stopped using Xanax as he claims after we asked him to do that however he said that his blood pressure is getting high because of his anxiety. He is going to see a psychiatrist in the near future and we will provide him with a letter that recommends not been prescribed any benzodiazepines for anxiety and to try different category of anti-anxiety medications. The patient failed of his bed recently on the left side of his neck and he is having increasing pain there. pt denies new-onset weakness, bowel/bladder incontinence, or any other signs or symptoms of cauda equina syndrome. There are no signs of acute intoxication, and no indications of medication diversion or overuse. In addition to above, 13-point review of systems is also negative for chest pain , shortness of breath, changes in vision, changes in hearing, new onset weakness , abdominal pain, diarrhea, extreme fatigue, malaise, fever, skin changes, homicidal or suicidal ideation, or bowel or bladder incontinence. Vital Signs: Reviewed in EMR Gen: AAOx3, NAD HEENT: NCAT, EOMI, hearing grossly normal Pulm: resp unlabored Neck: + cervical facet tenderness; ROM in flexion lumbar spine: reduced ROM in extension lumbar spine: reduced Lumbar paravertebral tenderness: + Neuro: CN II-XII grossly intact, muscle strength lower extremities PRESERVED Assessment: 1. lumbar spondylosis without myelopathy 2. SI joint dysfunction 3. chronic pain syndrome 4. cervical radiculopathy Plan: 1. Explanation: Opioid and psychological risk scores were reviewed. Diagnoses , prognoses, and multiple treatment options including but not limited to physical therapy, interventional therapies, adjuvant medical therapies, narcotic medication therapies, and surgery were discussed with the patient and all questions were answered to the patient's satisfaction. 2. Opioid agreement: Patient has previously signed narcotic agreement, and was orally counseled to not overuse, abuse, divert, or cell medications, and to take them as prescribed by only 1 healthcare provider. The patient was also counseled to store opioid medications in a safe and preferably locked location. Patient was also counseled against driving or operating heavy equipment while using narcotic medications and also to not use alcohol or any illicit or recreational drugs. The patient verbalized understanding that lack of compliance with any of the above and likely result in failure to renew narcotic prescriptions, possible discharge from the clinic, and possible legal ramifications thereafter if indicated. 3. Counseling: The patient was counseled extensively on BODY MASS INDEX, EXERCISE. Specifically, the patient was instructed regarding the importance of obesity, and exercise in the context of both chronic pain and overall health. 4. Procedures: His neck pain continues to be a problem and since he responded favorably to a previous cervical epidural steroid injection then I might need to repeat the same injection in the near future 5. Consultations: None 6. Investigations: We'll do urine drug screen today and the last urine drug screen that he had was an May 2017 was negative for opioids 7. Medications: Continue Percocet 10 mg 3 times a day if needed for his pain. Avoid any benzodiazepine for anxiety. 8. Disposition: Return to clinic in 8 weeks PQRS measures: 1-Patient's medications are documented in the chart. 2-Tobacco use is negative 3-Patient has had a pneumococcal vaccine. 4-Advanced care planning discussed, patient unable to give. 5-Opioid contract signed with the patient. 6-Pain positive, follow-up visit or procedure scheduled 7-Patient's blood pressure measured and documented, and patient will follow up with the primary care due to hypertension. 8-Patient's weight was measured, and body mass index ABOVE the normal limits, and counseling was done. Patient instructed to follow up with PCP. 9-Patient WAS NOT identified as an unhealthy alcohol user.
== END | disposition home or self-care (01) ==
LOC: PNWHC3 12:52
PROVIDERS: ATTEND Anesthesiology
DX: G89.4 Chronic pain syndrome (principal); M47.816 Spondylosis without myelopathy or radiculopathy, lumbar region; M54.12 Radiculopathy, cervical region; M53.3 Sacrococcygeal disorders, not elsewhere classified; Z79.891 Long term (current) use of opiate analgesic
CPT/HCPCS: 80356; 99211

== ENCOUNTER → 2017-11-16 | Outpatient (CLI) | payer OTHER ==
--- NOTE | 2017-11-16 10:47 | US ---
EXAMINATION TYPE: US abdomen complete DATE OF EXAM: 11/16/2017 COMPARISON: CT chest 07/18/2016, ultrasound 10/28/2015 CLINICAL HISTORY: R10.11 RUQ Abdominal Pain. RUQ pain. Patient states being NPO. EXAM MEASUREMENTS: Liver Length: 13.6 cm Gallbladder Wall: 0.4 cm CHD: 0.5 cm Spleen: 11.2 cm Right Kidney: 11.2 x 5.2 x 5.8 cm Left Kidney: 11.4 x 5.0 x 5.2 cm Suboptimal exam due to patient body habitus and overlying bowel gas Pancreas: Head not well visualized due to bowel gas. Liver: Echogenic. Appears course. Gallbladder: Appears small in size/contracted. Patient states not eating and had a sip of water wit h pills. Wall appears thickened but could be due to GB being contracted. Evidence for sonographic Hernandez's sign: neg CBD: Obscured by overlying bowel gas CHD: wnl Spleen: wnl Right Kidney: wnl Left Kidney: Prominent anterior cortical lobularity suboptimally visualized, dromedary hump? = 2.3 x 1.8 x 2.3 cm . This was out of the [id number] on the comparison CT. This appears to be a change f rom 10/28/2015 ultrasound abdomen. Upper IVC: wnl Abd Aorta: Proximal seen. Mid and distal portions obscured by overlying bowel gas. IMPRESSION: 1. There is a focal area of cortical thickening on the left mid to inferior pole of the kidney. This is not a typical cyst and does not appear to be typical of a dromedary hump. Additional workup with c ontrast CT is recommended.
== END | disposition home or self-care (01) ==
LOC: RADUSWWP 08:58
PROVIDERS: ATTEND Internal Medicine
DX: N28.89 Other specified disorders of kidney and ureter (principal)
CPT/HCPCS: 76700

== ENCOUNTER → 2017-11-23 | Outpatient (CLI) | payer OTHER ==
--- NOTE | 2017-11-23 09:51 | CT ---
EXAMINATION TYPE: CT abdomen w con DATE OF EXAM: 11/23/2017 COMPARISON: Complete abdominal ultrasound November 16, 2017. CT abdomen and pelvis July 07, 2014 HISTORY: Abn US, renal cyst, distention CT DLP: 1351.9 mGycm, Automated Exposure Control for Dose Reduction was Utilized. CONTRAST: CT scan of the abdomen is performed with oral and with IV Contrast, patient injected with 100 mL of I sovue 300. FINDINGS: LUNG BASES: No significant abnormality is appreciated. LIVER/GB: Liver is markedly hypodense consistent with fatty infiltration as seen on recent ultrasound . Contracted gallbladder is present currently. PANCREAS: No significant abnormality is seen. SPLEEN: No significant abnormality is seen. ADRENALS: No significant abnormality is seen. KIDNEYS: There is symmetric cortical medullary uptake and excretion from both kidneys without evidenc e of hydronephrosis bilaterally. There is prominent cortex or dromedary hump laterally left kidney se en best coronal image 61 which is believed to correspond to the ultrasound abnormality. BOWEL: Oral contrast does not reach ileal level. There is however no suspicious small or large bowel dilatation. LYMPH NODES: No greater than 1cm abdominal lymph nodes are appreciated. OSSEOUS STRUCTURES: Fairly moderate multilevel spurring in the thoracolumbar spine is present. Spine is straightened on sagittal images. OTHER: No significant additional abnormality is seen. IMPRESSION: No suspicious renal mass is present with particular attention to the area of concern lef t kidney on ultrasound.
--- NOTE | 2017-11-23 12:20 | NM ---
EXAMINATION TYPE: NM hepatobiliary w EF DATE OF EXAM: 11/23/2017 COMPARISON: CT abdomen same date, ultrasound abdomen 11/16/2017 HISTORY: Abdominal pain TECHNIQUE: After the intravenous administration of 5.5 mCi Tc 99m Mebrofenin hepatobiliary scintigrap hy is performed. Immediate images post injection. FINDINGS: There is satisfactory initial accumulation of tracer by the liver. The gallbladder is visualized wit hin 6 minutes. The small bowel activity is noted within 12 minutes. At one hour 8 ounces of oral en sure plus is given to mimic CCK and gallbladder ejection fraction is calculated at 94 %, elevated. T herefore there is no scintigraphic evidence of cystic or common bile duct obstruction to suggest acut e cholecystitis. IMPRESSION: Elevated gallbladder ejection fraction
== END | disposition home or self-care (01) ==
LOC: RADNMMAIN 06:25
PROVIDERS: ATTEND Internal Medicine
DX: R93.422 Abnormal radiologic findings on diagnostic imaging of left kidney (principal); R93.3 Abnormal findings on diagnostic imaging of other parts of digestive tract
CPT/HCPCS: 74160; 78226; A9537; Q9967

== ENCOUNTER → 2017-12-19 | Outpatient (CLI) | payer OTHER ==
[2017-12-19 14:56] VITALS: BP 116/71; PULSE 54; RESP 16
--- NOTE | 2017-12-19 15:28 | P.PN ---
Progress Note - Text Progress Note Date: 12/19/17 Progress Note - Text Progress Note Date: 10/24/17 This is a 57-year-old male with history of neck mid back and lower back pain after a trauma. The patient takes Percocet 10 mg 3 times a day. On his last visit he claimed to have stopped using Xanax. On his last visit a UDS was completed and the final results show that he was positive for alprazolam as well as temazepam. Patient states that he has not been taking those medications , and UDS will be done this visit to confirm that. I informed that if that does come back positive that we will stop writing for his Percocets. Patient is now following up with a psychiatrist who is writing for other medications for his anxiety. It increases dose of his antidepressants which he says has improved his mood overall and he is being more active. He does state that he isn't slightly more pain, likely because of his increased overall activity. He states that his low back pain is about a 9 on a 10 severity, she states that the radiofrequency ablations that he had last year were beneficial and would like to proceed in repeating them again. He does request not to have any steroid injected, because he states that it caused him to have a massive reaction in the way of weight gain and edema. pt denies new-onset weakness, bowel/bladder incontinence, or any other signs or symptoms of cauda equina syndrome. There are no signs of acute intoxication, and no indications of medication diversion or overuse. In addition to above, 13-point review of systems is also negative for chest pain , shortness of breath, changes in vision, changes in hearing, new onset weakness , abdominal pain, diarrhea, extreme fatigue, malaise, fever, skin changes, homicidal or suicidal ideation, or bowel or bladder incontinence. Vital Signs: Reviewed in EMR Gen: AAOx3, NAD HEENT: NCAT, EOMI, hearing grossly normal Pulm: resp unlabored Neck: + cervical facet tenderness; ROM in flexion lumbar spine: reduced ROM in extension lumbar spine: reduced Lumbar paravertebral tenderness: + Facet loading positive bilaterally Neuro: CN II-XII grossly intact, muscle strength lower extremities PRESERVED Assessment: 1. lumbar spondylosis without myelopathy 2. SI joint dysfunction 3. chronic pain syndrome 4. cervical radiculopathy Plan: 1. Explanation: Opioid and psychological risk scores were reviewed. Diagnoses , prognoses, and multiple treatment options including but not limited to physical therapy, interventional therapies, adjuvant medical therapies, narcotic medication therapies, and surgery were discussed with the patient and all questions were answered to the patient's satisfaction. 2. Opioid agreement: Patient has previously signed narcotic agreement, and was orally counseled to not overuse, abuse, divert, or cell medications, and to take them as prescribed by only 1 healthcare provider. The patient was also counseled to store opioid medications in a safe and preferably locked location. Patient was also counseled against driving or operating heavy equipment while using narcotic medications and also to not use alcohol or any illicit or recreational drugs. The patient verbalized understanding that lack of compliance with any of the above and likely result in failure to renew narcotic prescriptions, possible discharge from the clinic, and possible legal ramifications thereafter if indicated. 3. Counseling: The patient was counseled extensively on BODY MASS INDEX, EXERCISE. Specifically, the patient was instructed regarding the importance of obesity, and exercise in the context of both chronic pain and overall health. 4. Procedures: Lumbar radio frequency ablation of L3-4, L4-L5, L5-S1 5. Consultations: None 6. Investigations: We'll do urine drug screen today and the last urine drug screen that he had was an May 2017 was negative for opioids 7. Medications: Continue Percocet 10 mg 3 times a day if needed for his pain. Baclofen 10 mg twice a day with 4 refills 8. Disposition: Lumbar radio frequency ablation in 2-4 weeks PQRS measures: 1-Patient's medications are documented in the chart. 2-Tobacco use is negative 3-Patient has had a pneumococcal vaccine. 4-Advanced care planning discussed, patient unable to give. 5-Opioid contract signed with the patient. 6-Pain positive, follow-up visit or procedure scheduled 7-Patient's blood pressure measured and documented, and patient will follow up with the primary care due to hypertension. 8-Patient's weight was measured, and body mass index ABOVE the normal limits, and counseling was done. Patient instructed to follow up with PCP. 9-Patient WAS NOT identified as an unhealthy alcohol user.
== END | disposition home or self-care (01) ==
LOC: PNWHC3 13:06
PROVIDERS: ATTEND Anesthesiology
DX: G89.4 Chronic pain syndrome (principal); M47.816 Spondylosis without myelopathy or radiculopathy, lumbar region; M54.12 Radiculopathy, cervical region; M53.3 Sacrococcygeal disorders, not elsewhere classified; Z79.891 Long term (current) use of opiate analgesic; Z79.899 Other long term (current) drug therapy
CPT/HCPCS: 80307; G0463; 99211

== ENCOUNTER 2018-01-03 10:00 | Day surgery (SDC) | payer OTHER ==
[2017-12-27 15:35] VITALS: BMI 31.1
[2018-01-03 10:18] VITALS: RESP 16; TEMP 98.5
[2018-01-03] MEDS ORDERED: LACTATED RINGERS 1,000 ML IV ONE ×3 (10:21→12:02)
[2018-01-03] MEDS ORDERED: LIDOCAINE 1% 20 ML VIAL (10MG/ML) FOR IV START INTRADERMA ONE (10:22)
--- NOTE | 2018-01-03 11:14 | P.GSHP ---
History of Present Illness H&P Date: 01/03/18 57-year-old male presenting for radiofrequency ablation of lumbar spine. Patient had previous history of frequency ablation done September 2016 had excellent relief greater than 80%. Patient has no bowel or bladder incontinence Vital Signs: Reviewed in EMR Gen: AAOx3, NAD Pulm: resp unlabored Cardio: S1-S2 no peripheral edema Neck: + cervical facet tenderness; ROM in flexion lumbar spine: reduced ROM in extension lumbar spine: reduced Lumbar paravertebral tenderness: + Facet loading positive bilaterally Plan: 1. Radio frequency ablation of L2-L3 L4-L5 medial branches. 2. Return in 2-4 weeks for opposite side radio frequency ablation Past Medical History Past Medical History: Asthma, CVA/TIA, Hyperlipidemia, Hypertension, Pneumonia Additional Past Medical History / Comment(s): back pain-LUMBAR, vertigo, STROKES BEHIND THE EYES,. difficulty swallowing. History of Any Multi-Drug Resistant Organisms: None Reported Past Surgical History: Appendectomy, Hernia Repair, Orthopedic Surgery Additional Past Surgical History / Comment(s): RT INGUINAL HERNIA , RT ROTATOR CUFF SX, Pain procedures. Bottom teeth pulled March 09 2017 awaiting bottom denture. Past Anesthesia/Blood Transfusion Reactions: No Reported Reaction Past Psychological History: Anxiety, Depression Smoking Status: Former smoker Past Alcohol Use History: None Reported Past Drug Use History: None Reported - Past Family History Father Family Medical History: Cancer Mother Family Medical History: Hypertension Medications and Allergies Home Medications Medication Instructions Recorded Confirmed Type Gemfibrozil [Lopid] 600 mg PO BID 11/25/15 01/03/18 History Omeprazole 20 mg PO DAILY 02/03/16 01/03/18 History Aspirin [Adult Low Dose Aspirin EC] 81 mg PO DAILY 03/20/16 01/03/18 History Montelukast [Singulair] 10 mg PO DAILY 06/29/16 01/03/18 History EPINEPHrine (Auto Inject) [Epipen] 0.3 mg IM ONCE PRN 01/25/17 01/03/18 History Baclofen 10 mg PO BID #60 tablet 06/06/17 01/03/18 Rx oxyCODONE-APAP 10-325MG [Percocet 1 tab PO Q6HR PRN #90 tab 09/26/17 01/03/18 Rx 10-325 mg] Budesonide/Formoterol Fumarate 1 puff INHALATION BID 12/19/17 01/03/18 History [Symbicort 80-4.5 Mcg Inhaler] Desvenlafaxine Succinate [Pristiq] 50 mg PO DAILY 12/19/17 01/03/18 History Gabapentin [Neurontin] 400 mg PO TID 12/19/17 01/03/18 History Lisinopril [Zestril] 10 mg PO DAILY 12/19/17 01/03/18 History cloNIDine HCL [Catapres] 0.1 mg PO TID 12/19/17 01/03/18 History traZODone HCL [Desyrel] 100 mg PO HS 12/19/17 01/03/18 History Metoclopramide HCl [Reglan] 5 mg PO QID 12/27/17 01/03/18 History Allergies Allergy/AdvReac Type Severity Reaction Status Date / Time birds Allergy Severe Wheezing Uncoded 01/03/18 10:19 steriods Allergy Neck Uncoded 01/03/18 10:19 Swelling Surgical - Exam Vital Signs Temp Pulse Resp BP Pulse Ox 98.5 F 67 16 104/71 96 01/03/18 10:18 01/03/18 10:18 01/03/18 10:18 01/03/18 10:18 01/03/18 10:18
--- NOTE | 2018-01-03 11:51 | P.PCN ---
Date of Procedure: 01/03/18 Description of Procedure: Date of Procedure: 01/03/2018 PREOPERATIVE DIAGNOSIS: 1-Lumbar Spondylosis with Facet Arthropathy without myelopathy. POSTOPERATIVE DIAGNOSIS: 1- Lumbar Spondylosis with Facet Arthropathy without myelopathy. PROCEDURES : Left Radiofrequency thermocoagulation, L3-L4, L4-L5, and L5-S1 medial branch, with fluoroscopic guidance ANESTHESIA: IV sedation with versed 2 mg and fentaneyl 100 mcg and local infiltration with lidocaine 1% 6 ml PROCEDURE INDICATION: Patient had excellent relief with previous radio emergency ablation. The patient with low back pain secondary to lumbar facet arthropathy who had more than 50% relief of her pain with previous diagnostic lumbar medial branch block with bupivacaine. Patient states that he has significant reaction to steroids which includes head and neck swelling and at times can feel short of breath he has had multiple injections in the past where he has received steroids. I'll minimize the amount of steroids to a quarter of the typical doses he has received PROCEDURE DESCRIPTION / TECHNIQUE: The patient was seen and identified in the preoperative area. Risks, benefits, complications, including but not limited to risk of infection ,bleeding , allergic reactions to the medications and no complete pain releife , and alternatives were discussed with the patient, the patient agreed to proceed with the procedure and signed the consent. IV was started. Vital signs remained stable throughout the procedure. Patient was taken to the OR and time out was completed. The patient was placed in the prone position on the procedure table. The lumber area was prepped and draped in the usual sterile fashion. . Vital signs were closely monitored during the procedure .IV sedation was used during the procedure to decrease patients anxiety. Using AP and then oblique fluoroscopy, the ``eye of the Moses dog corresponding to the connection between the superior and transverse articular processes of left L3, L4, and L5 were identified, marked, and localized with 1 % lidocaine. Subsequently, a 18 [id number] radiofrequency cannula with a 10- mm active tip was advanced guided by fluoroscopy to each of the ``eyes of the Moses dog at left L3, L4, and L5. Each site then underwent sensory testing at 50 Hz and 0 to 1 volt and motor testing at 2.5 Hz and 0 to 3 volt with local stimulation, but no radicular symptoms down the legs. Thereafter the left L3-4, L4-5, and L5-S1 sites underwent radiofrequency thermocoagulation at 80 degrees celsius for 90 seconds after injecting 0.5 ml of PF lidocaine 1%. then After the thermocoagulation done , 1 ml of the block solution containing Kenalog 10 mg and 3 ml of ropivacaine 0.5% and 15 mg Toradol was injected at the left L3-4 , L4-5 , and L5-S1, levels after negative aspiration of CSF and blood and with no paresthesias. Cannulas were retracted while injecting lidocaine 1% until the needle is out. At the end of the procedure, the skin was cleansed and bandages were applied. COMPLICATIONS: No acute complications. DISPOSITION / PLANS: The patient was placed in a supine position and transferred to the recovery area in a stable condition for observation and was discharged from the recovery room after meeting discharge criteria. Home discharge instructions given to the patient by the staff. The patient was reexamined prior to discharge. The patient will schedule a follow up in the clinic in 2-4 weeks.
[2018-01-03 12:08] VITALS: BP 126/76; PULSE 61
--- NOTE | 2018-01-03 14:18 | FL ---
Fluoroscopy HISTORY: Pain 15 seconds fluoroscopy time supplied to the referring clinician. 3 intraoperative C-arm images docum ent the procedure. See dictated report from anesthesia.
== END 2018-01-03 12:30 | disposition home or self-care (01) ==
LOC: ORPAIN 10:00
PROVIDERS: ATTEND Anesthesiology
DX: M47.816 Spondylosis without myelopathy or radiculopathy, lumbar region (principal)
CPT/HCPCS: 64635; 64636; J2250; J3301; J2001; J3010; 99152

== ENCOUNTER 2018-01-17 09:03 | Day surgery (SDC) | payer OTHER ==
[2018-01-14 12:04] VITALS: BMI 31.1
[2018-01-17 09:52] VITALS: RESP 16; TEMP 98.2
[2018-01-17] MEDS: LACTATED RINGERS 1,000 ML IV SCH ×2 (09:59→10:43)
--- NOTE | 2018-01-17 11:14 | P.PCN ---
Date of Procedure: 01/17/18 Procedure(s) Performed: PREOPERATIVE DIAGNOSIS: 1-Lumbar Spondylosis with Facet Arthropathy without myelopathy. POSTOPERATIVE DIAGNOSIS: 1- Lumbar Spondylosis with Facet Arthropathy without myelopathy. PROCEDURES : Right Radiofrequency thermocoagulation, L3-L4, L4-L5, and L5-S1 medial branch, with fluoroscopic guidance ANESTHESIA: Moderate sedation with intravenous versed 4 mg and fentaneyl 100 mcg, and local infiltration with Ropivacaine 0.5 % . EBL: Minimal PROCEDURE INDICATION: The patient with low back pain secondary to lumbar facet arthropathy who had more than 50% relief of her pain with previous diagnostic lumbar medial branch block with bupivacaine. PROCEDURE DESCRIPTION / TECHNIQUE: The patient was seen and identified in the preoperative area. Risks, benefits, complications, including but not limited to risk of infection ,bleeding , allergic reactions to the medications and no complete pain releife , and alternatives were discussed with the patient, the patient agreed to proceed with the procedure and signed the consent. IV was started. Vital signs remained stable throughout the procedure. Patient was taken to the OR and time out was completed. The patient was placed in the prone position on the procedure table. The lumber area was prepped and draped in the usual sterile fashion. . Vital signs were closely monitored during the procedure .IV sedation was used during the procedure to decrease patients anxiety. Using AP and then oblique fluoroscopy, the ``eye of the Moses dog corresponding to the connection between the superior and transverse articular processes of right L3, L4, and L5 were identified, marked, and localized with 1 % lidocaine. Subsequently, a 18 [id number] radiofrequency cannula with a 10- mm active tip was advanced guided by fluoroscopy to each of the ``eyes of the Moses dog at right L3, L4, and L5. Each site then underwent sensory testing at 50 Hz and 0 to 1 volt and motor testing at 2.5 Hz and 0 to 3 volt with local stimulation, but no radicular symptoms down the legs. Thereafter the right L3-4, L4-5, and L5-S1 sites underwent radiofrequency thermocoagulation at 80 degrees celsius for 90 seconds after injecting 0.5 ml of PF Ropivacaine 1ml then After the thermocoagulation done , 1 ml of of Ropivacaine 0.5% was injected at the right L3-4 , L4-5 , and L5-S1, levels after negative aspiration of CSF and blood and with no paresthesias. Cannulas were retracted while injecting lidocaine 1% until the needle is out. At the end of the procedure, the skin was cleansed and bandages were applied. COMPLICATIONS: No acute complications. DISPOSITION / PLANS: The patient was placed in a supine position and transferred to the recovery area in a stable condition for observation and was discharged from the recovery room after meeting discharge criteria. Home discharge instructions given to the patient by the staff. The patient was reexamined prior to discharge. The patient will schedule a follow up in the clinic in 2-4 weeks. I did not use any steroid , the patient reported ,that he had ALLERGY to steroid , and the procedure, used very small dose of steroid:( Kenalog 10 mg ), and he reports that he had difficulty breathing after the procedure, and patient requested ,that we don't use any steroid .
--- NOTE | 2018-01-17 11:36 | FL ---
EXAMINATION TYPE: FL guided pain mgmt statistic DATE OF EXAM: 01/17/2018 HISTORY: Flouroscopy time 11 seconds of fluoroscopy provided. IMPRESSION: 1. Fluoroscopy time.
[2018-01-17 11:45] VITALS: BP 112/77; PULSE 55
[2018-01-17] MEDS ORDERED: IV FLUID CONTINUATION 1,000 ML IV ONE (11:47)
== END 2018-01-17 11:49 | disposition home or self-care (01) ==
LOC: ORPAIN 09:03
PROVIDERS: ATTEND Specialist
DX: M47.816 Spondylosis without myelopathy or radiculopathy, lumbar region (principal); Z88.8 Allergy status to other drugs, medicaments and biological substances
CPT/HCPCS: 64635; 64636 ×2; J2250; J3010; 99152

== ENCOUNTER → 2018-02-13 | Outpatient (CLI) | payer OTHER ==
[2018-02-13 13:28] VITALS: BP 119/82; PULSE 62; RESP 16
--- NOTE | 2018-02-14 10:44 | P.PAINPG ---
Subjective Progress Note Date: 02/13/18 This is follow-up visit for this patient with a history of severe and chronic low back pain secondary to lumbar degenerative disc disease, lumbar facet arthropathy, We have done an interventional pain procedure radiofrequency ablation of the medial branch lumbar area L3 to S1, and improved significantly but currently is complaining of severe localized pain in the right side above the buttock area. The patient currently on Neurontin 400 mg every 8 hours, Percocet 10/325 every 6 hours, baclofen 10 mg twice a day Patient denies any side effect of the medication , patient denies any excessive drowsiness or sleepiness, patient denies any suicidal ideation, Patient reported that the current medication is helping to control the pain and improve the activity of daily livings, Patient denies any motor or sensory deficit, denies any change in the bowel movement or urination, patient denies any fever or night sweats. Patient here today for follow-up visit and medication refill Objective - Vital Signs Vital signs: Vital Signs Temp Pulse 62 02/13/18 13:23 Resp 16 02/13/18 13:23 BP 119/82 02/13/18 13:23 Pulse Ox 97 02/13/18 13:23 Intake & Output 02/13/18 02/14/18 02/14/18 18:59 06:59 18:59 Weight 101.605 kg - Exam Physical Examinations : 1-Constitutiona : Cooperative , not in acute distress . 2-HEENT : nech ; supple , no Lymphadenopathy , normal thyroid size . eyes : no ptosis , no icterus , no photophobia . ENT : normal of hearing , normal oropharynx , no Thrush . 3- Respiratory : Chest clear to auscultations Bilaterally , no wheezing , no Rhonchi . 4- Cardiovascular : regular rate and rhythem , S1 , S2 , no S3 , no S4. 5- Gastrointestinal : abdomen soft no tenderness , bowel sounds , no organomegally . 6- Genitourinary : Defferred . 7- neurologic : Cranial nerve II to XII intact , no focal neurological deffecit . 8-psychatric : alert , oriented X 3 , appropriate affect , intact judgment and insight . 9-Lymphatic : no Lymphadenopathy . 10- musculoskeltal : Lumber spine moter stegnth lower extremities ,thigh and legs 5/5 Right side , 5/5 Left side deep tendon reflexes : normal Knee Jerk , normal ankle Jerk positive lumber facet Loading Test Range of motion of the lumbar spine Flexion 30 degrees, extension 10 degrees strait leg raising test , positive at 60 degree Fabere test positive . Sever tenderness over the right iliolumbar ligament area Assessment and Plan Plan: Assessment and plan= chronic low back pain secondary to lumbar degenerative disc disease , lumbar spondylosis with lumbar facet arthropathy . chronic and current use of high-risk medication (opioids) Patient denies any side effects of the current pain medication and the current treatment/medication helping the patient to do activity of daily living , Diagnoses, prognosis, treatment options, including but not limited to physical therapy, medication management, interventional therapies, and surgery, were discussed with the patient All the questions answered The narcotic consent was signed and patient agreed and understood the side effects and complications of opioid treatment. Patient signed the narcotic agreement, and was orally counseled, not to overuse, not to abuse, not to Divert , not tp sell pain medication, and to take it as prescribed only, Patient was counseled not to drive or operate heavy equipment while using narcotic medication, and advised not to use alcohol or any Illicit drugs while using the narcotis, the patient's verbalized understanding that lack of compliance with any of the above instructions, will likely to cause discharge from, the pain service, not to renew his narcotic prescriptions MAPS Reviwed and it was apropriate . Medication managements= patient will be given prescription refills for Neurontin 400 mg 3 times a day Percocet 10/325 every 6 hours dispense 120 with one refill baclofen 10 mg twice a day dispense 60 with one refill , Time with Patient: Less than 30 PQRS Measure Charge Sheet Measure #130: Documentation of Current Meds in Medical Chart: Patient's medications documented in chart Measure #226: Tobacco Use: Screen & Cessation Intervention: Pt not a tobacco user Measure #111: Pneumonia Vaccination: Pneumococcal vaccine administered or previously received Measure #47: Advance Care Plan: Advance care planning discussed & documented, pt chose/unable to give Measure #412: Opioid Treatment Agreement: Documented signed opioid trtmnt agreemnt min once during opioid trtmnt Measure #408: Opioid Therapy Follow-up Evaluation: Patient had f/u eval minimum every 3 months during opioid therapy Measure #317: Preventitive Care & Scrn High Bld Press & F/U: Normal blood pressure, f/u not required Measure #128: Body Mass Index (BMI) Screening & Follow-up: BMI documented ABOVE normal parameters - f/u documented Measure #131: Pain Assessment & Follow-up: Pain positive & plan documented, Follow-up scheduled Measure #431: Unhealthy Alcohol Use Preventative Care & Scrn: Patient not identified as an unhealthy alcohol user PQRS Narrative: Smoking Status Former smoker Do You Want the Pneumonia Vaccine Up to Date Vaccine AT THIS TIME? Narcotic Agreement Date Signed 04/06/16 Blood Pressure 119/82 Pain Intensity [Right Buttock] 7 Scale Used Numeric (1 - 10) Hx Alcohol Use (MH) No Home Medications: Ambulatory Orders Gemfibrozil [Lopid] 600 mg PO BID 11/25/15 Omeprazole 20 mg PO DAILY 02/03/16 Aspirin [Adult Low Dose Aspirin EC] 81 mg PO DAILY 03/20/16 Montelukast [Singulair] 10 mg PO DAILY 06/29/16 EPINEPHrine (Auto Inject) [Epipen] 0.3 mg IM ONCE PRN 01/25/17 Budesonide/Formoterol Fumarate [Symbicort 80-4.5 Mcg Inhaler] 1 puff INHALATION BID 12/19/17 Desvenlafaxine Succinate [Pristiq] 50 mg PO DAILY 12/19/17 Lisinopril [Zestril] 10 mg PO DAILY 12/19/17 cloNIDine HCL [Catapres] 0.1 mg PO TID 12/19/17 traZODone HCL [Desyrel] 100 mg PO HS 12/19/17 Metoclopramide HCl [Reglan] 5 mg PO QID 12/27/17 Baclofen 10 mg PO BID #60 tablet 02/13/18 Gabapentin [Neurontin] 400 mg PO TID #90 cap 02/13/18 oxyCODONE HCL/ACETAMINOPHEN [Percocet 10-325 mg] 1 tab PO Q8HR PRN 30 Days #90 tab 02/13/18 oxyCODONE-APAP 10-325MG [Percocet 10-325 mg] 1 tab PO Q6HR PRN #90 tab 02/13/18 Controlled Substance Measures - Controlled Substance Measures Is patient prescribed a controlled substance at discharge?: Yes When asked, does pt state using other controlled substances?: No If prescribed controlled substance>3 days was MAPS reviewed?: Yes If Rx opioid, was Start Talking consent form obtained?: Yes If opioid is for acute pain is fill amount 7 days or less?: No Was information provided regarding opioid addiction?: Yes
== END | disposition home or self-care (01) ==
LOC: PNWHC3 12:52
PROVIDERS: ATTEND Specialist
DX: G89.29 Other chronic pain (principal); M51.36 Other intervertebral disc degeneration, lumbar region; M47.816 Spondylosis without myelopathy or radiculopathy, lumbar region; M46.96 Unspecified inflammatory spondylopathy, lumbar region; Z87.891 Personal history of nicotine dependence; Z98.890 Other specified postprocedural states; Z79.891 Long term (current) use of opiate analgesic; Z79.82 Long term (current) use of aspirin; Z79.51 Long term (current) use of inhaled steroids; Z79.899 Other long term (current) drug therapy
CPT/HCPCS: 99211

== ENCOUNTER 2018-02-25 06:00 | Day surgery (SDC) | payer OTHER ==
[2018-02-20 11:05] VITALS: BMI 30.4
[~2018-02-25 06:00] MED LIST changes: -LACTATED RINGERS 1,000 ML IV ONE; +LACTATED RINGERS 1,000 ML IV SCH
[2018-02-25 06:27] VITALS: TEMP 97
[2018-02-25] MEDS ORDERED: LIDOCAINE 1% 20 ML VIAL (10MG/ML) FOR IV START INTRADERMA ONE (06:37)
--- NOTE | 2018-02-25 07:40 | P.PCN ---
Date of Procedure: 02/25/18 Procedure(s) Performed: Procedure= right iliolumbar ligament block under fluoroscopy guidance Preoperative diagnosis= 1-right iliolumbar ligament neuralgia. 2-lumbar spondylosis with lumbar facet arthropathy Postoperative diagnosis= 1-right iliolumbar ligament neuralgia. 2-lumbar spondylosis with lumbar facet arthropathy Complication = none Condition= stable Fluoroscopy time = seconds Anesthesia= moderate sedation with intravenous Versed 2 mg , and fentanyl 100 micrograms . Indication for the procedure= patient complaining of low back pain , examination was positive for severe tenderness over the right iliolumbar ligament and patient diagnosed with right iliolumbar ligament neuralgia, for this reason he/ she was good candidate for right iliolumbar ligament block, Description of the procedure= procedure risk and benefits discussed with the patient, including but not limited, risk of infection and bleeding, and ALLERGIC reaction to the medication and not complete pain relief and patient agreed with the preceding patient taken to the operating room, placed in prone position or standard monitors applied to the patient then after induction of anesthesia back prepped with chlorhexidine 3 times , Then under strict sterile technique, first I did the right sacroiliac joint the which was identified under fluoroscopy guidance been local infiltration of the skin and subcu interstitial with lidocaine 1% then 25-gauge Quincke Needle advanced slowly under fluoroscopy and placed in the middle of the distance between the right transverse process and the sacral ala ,needle placement confirmed with AP and oblique and lateral view and after appropriate needle placement confirmed and after negative aspiration, or heme , then Ropivacaine 0.5% 6 mL, injected in the right iliolumbar ligament area after negative aspiration patient tolerated the procedure well without any complication. he will follow up in clinic 3 weeks no steroid used for the injection today
[2018-02-25] MEDS ORDERED: IV FLUID CONTINUATION 400 ML IV ONE (07:41)
[2018-02-25 07:44] VITALS: BP 135/79; PULSE 60; RESP 16
--- NOTE | 2018-02-25 08:49 | FL ---
EXAMINATION TYPE: FL guided pain mgmt statistic DATE OF EXAM: 02/25/2018 HISTORY: Flouroscopy time 3 seconds of fluoroscopy provided. IMPRESSION: 1. Fluoroscopy time.
== END 2018-02-25 07:56 | disposition home or self-care (01) ==
LOC: ORPAIN 06:00
PROVIDERS: ATTEND Specialist
DX: G58.8 Other specified mononeuropathies (principal); M47.816 Spondylosis without myelopathy or radiculopathy, lumbar region; I10 Essential (primary) hypertension; Z88.8 Allergy status to other drugs, medicaments and biological substances; Z86.73 Personal history of transient ischemic attack (TIA), and cerebral infarction without residual deficits
CPT/HCPCS: 20550; J2250; J3010; 20552

== ENCOUNTER → 2018-04-10 | Outpatient (CLI) | payer OTHER ==
[2018-04-10 14:30] VITALS: BP 113/71; PULSE 56; RESP 16
--- NOTE | 2018-04-11 19:51 | P.PN ---
Subjective Progress Note Date: 04/10/18 This is follow-up visit for this patient with a history of severe and chronic low back pain secondary to lumbar degenerative disc disease, lumbar facet arthropathy, We have done an interventional pain procedure radiofrequency ablation of the medial branch lumbar area L3 to S1, and later on ,patient developed right iliolumbar ligament neuralgia , and I did a right iliolumbar ligament injection , (without any started because patient had allergy to a steroid ) and he reported that he had good benefit from it but only for short term The patient currently on Neurontin 400 mg every 8 hours, Percocet 10/325 every 6 hours, baclofen 10 mg twice a day Patient denies any side effect of the medication , patient denies any excessive drowsiness or sleepiness, patient denies any suicidal ideation, Patient reported that the current medication is helping to control the pain and improve the activity of daily livings, Patient denies any motor or sensory deficit, denies any change in the bowel movement or urination, patient denies any fever or night sweats. Patient here today for follow-up visit and medication refill Physical Examinations : 1-Constitutiona : Cooperative , not in acute distress . 2-HEENT : nech ; supple , no Lymphadenopathy , normal thyroid size . eyes : no ptosis , no icterus , no photophobia . ENT : normal of hearing , normal oropharynx , no Thrush . 3- Respiratory : Chest clear to auscultations Bilaterally , no wheezing , no Rhonchi . 4- Cardiovascular : regular rate and rhythem , S1 , S2 , no S3 , no S4. 5- Gastrointestinal : abdomen soft no tenderness , bowel sounds , no organomegally . 6- Genitourinary : Defferred . 7- neurologic : Cranial nerve II to XII intact , no focal neurological deffecit . 8-psychatric : alert , oriented X 3 , appropriate affect , intact judgment and insight . 9-Lymphatic : no Lymphadenopathy . 10- musculoskeltal : Lumber spine moter stegnth lower extremities ,thigh and legs 5/5 Right side , 5/5 Left side deep tendon reflexes : normal Knee Jerk , normal ankle Jerk positive lumber facet Loading Test Range of motion of the lumbar spine Flexion 30 degrees, extension 10 degrees strait leg raising test , positive at 60 degree Fabere test positive . Sever tenderness over the right iliolumbar ligament area Assessment and Plan Plan: Assessment and plan= chronic low back pain secondary to lumbar degenerative disc disease , lumbar spondylosis with lumbar facet arthropathy . chronic and current use of high-risk medication (opioids) Patient denies any side effects of the current pain medication and the current treatment/medication helping the patient to do activity of daily living , Diagnoses, prognosis, treatment options, including but not limited to physical therapy, medication management, interventional therapies, and surgery, were discussed with the patient All the questions answered The narcotic consent was signed and patient agreed and understood the side effects and complications of opioid treatment. Patient signed the narcotic agreement, and was orally counseled, not to overuse, not to abuse, not to Divert , not tp sell pain medication, and to take it as prescribed only, Patient was counseled not to drive or operate heavy equipment while using narcotic medication, and advised not to use alcohol or any Illicit drugs while using the narcotis, understanding that lack of compliance with any of the above instructions, will likely to cause discharge from, the pain service, not to renew his narcotic prescriptions MAPS Reviwed and it was apropriate . Medication managements= patient will be given prescription refills for Neurontin 400 mg 3 times a day Percocet 10/325 every 6 hours dispense 120 with one refill baclofen 10 mg twice a day dispense 60 with one refill, patient could benefit from repeat right iliolumbar ligament block ( local anesthetic only without any steroid ) , Time with Patient: Less than 30 PQRS Measure Charge Sheet Measure #130: Documentation of Current Meds in Medical Chart: Patient's medications documented in chart Measure #226: Tobacco Use: Screen & Cessation Intervention: Pt not a tobacco user Measure #111: Pneumonia Vaccination: Pneumococcal vaccine administered or previously received Measure #47: Advance Care Plan: Advance care planning discussed & documented, pt chose/unable to give Measure #412: Opioid Treatment Agreement: Documented signed opioid trtmnt agreemnt min once during opioid trtmnt Measure #408: Opioid Therapy Follow-up Evaluation: Patient had f/u eval minimum every 3 months during opioid therapy Measure #317: Preventitive Care & Scrn High Bld Press & F/U: Normal blood pressure, f/u not required Measure #128: Body Mass Index (BMI) Screening & Follow-up: BMI documented ABOVE normal parameters - f/u documented Measure #131: Pain Assessment & Follow-up: Pain positive & plan documented, Follow-up scheduled Measure #431: Unhealthy Alcohol Use Preventative Care & Scrn: Patient not identified as an unhealthy alcohol user PQRS Narrative: Objective - Vital Signs Vital signs: Vital Signs Temp Pulse 56 L 04/10/18 14:17 Resp 16 04/10/18 14:17 BP 113/71 04/10/18 14:17 Pulse Ox 97 04/10/18 14:17
== END | disposition home or self-care (01) ==
LOC: PNWHC3 13:43
PROVIDERS: ATTEND Specialist
DX: G89.29 Other chronic pain (principal); M51.36 Other intervertebral disc degeneration, lumbar region; M47.816 Spondylosis without myelopathy or radiculopathy, lumbar region; M46.96 Unspecified inflammatory spondylopathy, lumbar region; Z98.890 Other specified postprocedural states; Z79.891 Long term (current) use of opiate analgesic
CPT/HCPCS: 99211

== ENCOUNTER 2018-05-01 08:42 | Day surgery (SDC) | payer OTHER ==
[2018-04-25 13:11] VITALS: BMI 32.9
[2018-05-01 09:09] VITALS: TEMP 98.4
[2018-05-01] MEDS ORDERED: SODIUM CHLORIDE 0.9% 500 ML 500 ML IV SCH (09:15)
[2018-05-01] MEDS ORDERED: LACTATED RINGERS 1,000 ML IV ONE (09:16)
[2018-05-01] MEDS ORDERED: LIDOCAINE 1% 20 ML VIAL (10MG/ML) FOR IV START INTRADERMA ONE (09:16)
[2018-05-01] MEDS ORDERED: IV FLUID CONTINUATION 1,000 ML IV ONE ×2 (09:57)
[2018-05-01 10:01] VITALS: RESP 16
[2018-05-01 10:14] VITALS: BP 113/69; PULSE 64
--- NOTE | 2018-05-01 13:40 | FL ---
Fluoroscopy HISTORY: Pain 1 seconds fluoroscopy time supplied to the referring clinician. 1 intraoperative C-arm images docume nt the procedure. See dictated report from anesthesia.
--- NOTE | 2018-05-01 13:57 | P.PCN ---
Date of Procedure: 05/01/18 Surgeon: Monster Cartagena Description of Procedure: Preoperative Diagnosis: right iliolumbar ligament strain Postoperative diagnosis: Same Anesthesia: Local, 2 mg of midazolam as Alatorre and 100 g of fentanyl Surgeon: Monster Cartagena MD Procedure: right iliolumbar ligament injection Indications for procedure:this is a very pleasant 57-year-old man with a history of intractable low back pain. He is undergone previous iliolumbar ligament injections. He reports his first injection was very helpful from both sides but much more helpful on the left than the right. We will repeat the right injection today to hopefully achieve further benefit. He does report significant difficulty with breathing after receiving steroids and therefore we will avoid this class of medicines for him today. Description of procedure: After informed consent was obtained the patient's back was sterilely prepped in the usual fashion with ChloraPrep. A tender spot overlying the course of the iliolumbar ligament was identified. A 25-gauge 3.5 inch needle was advanced through the skin and subcutaneous tissue until it entered into the iliolumbar ligament with provocation of the patient's symptoms. After negative aspiration, 5 mL of 0.5% ropivacaine was injected. Needle was then withdrawn. A sterile dressing was applied. There were no consultations. Dispostion: Patient was discharged home with follow-up instructions.
== END 2018-05-01 10:32 | disposition home or self-care (01) ==
LOC: ORPAIN 08:42
PROVIDERS: ATTEND Pain Medicine Pain Medicine
DX: G89.29 Other chronic pain (principal); S33.5XXA Sprain of ligaments of lumbar spine, initial encounter; X58.XXXA Exposure to other specified factors, initial encounter; M51.36 Other intervertebral disc degeneration, lumbar region; M47.816 Spondylosis without myelopathy or radiculopathy, lumbar region; Z79.891 Long term (current) use of opiate analgesic; Z79.899 Other long term (current) drug therapy
CPT/HCPCS: 20550; J2250; J3010

== ENCOUNTER 2018-05-15 08:22 | Day surgery (SDC) | payer OTHER ==
[2018-05-14 08:40] VITALS: BMI 32.9
[2018-05-15 08:38] VITALS: PULSE 65; TEMP 97.6
[2018-05-15] MEDS ORDERED: LIDOCAINE 1% 20 ML VIAL (10MG/ML) FOR IV START INTRADERMA ONE (08:44)
[2018-05-15] MEDS ORDERED: LACTATED RINGERS 1,000 ML IV ONE (08:44)
--- NOTE | 2018-05-15 09:14 | P.PCN ---
Date of Procedure: 05/15/18 Preoperative Diagnosis: lumbago myofascial pain syndrome Postoperative Diagnosis: same Procedure(s) Performed: right iliolumbar ligament injection Surgeon: Landon Gannon Description of Procedure: Date of service 05/15/2018 Procedure right iliolumbar ligament injection Anesthesia 2 mg of Versed 50 mg of fentanyl-conscious sedation for fear of needles and anxiety. Procedure description Patient was brought into the room after timeout and history of physical exam and consent were all signed. The patient was placed in the prone position on the x-ray table. Back was prepped with iodine. Fluoroscopic imaging was used to identify the lumbar spine. After identification lumbar spine 25-gauge was used to identify iliolumbar ligament. Insertion of 25-gauge needle 1 mL of 180 mg per mL Isovue contrast used to identify spread via the iliolumbar ligament. After correct spread was identified and local anesthetic using 10 mL of 0.5% ropivacaine was injected after negative aspiration. No steroids were used for this procedure is a patient has an ALLERGY to steroids. Back was cleaned off and the needle was removed intact. Patient was sent to the PACU for recovery. Patient follow-up in the clinic in 2-4 weeks.
[2018-05-15] MEDS ORDERED: IV FLUID CONTINUATION 1,000 ML IV ONE ×2 (09:28)
[2018-05-15 09:33] VITALS: RESP 18
[2018-05-15 09:44] VITALS: BP 128/71
--- NOTE | 2018-05-15 09:52 | FL ---
EXAMINATION TYPE: FL guided pain mgmt statistic DATE OF EXAM: 05/15/2018 HISTORY: Flouroscopy time 3 seconds of fluoroscopy provided. IMPRESSION: 1. Fluoroscopy time.
== END 2018-05-15 09:57 | disposition home or self-care (01) ==
LOC: ORPAIN 08:22
PROVIDERS: ATTEND Hospitalist
DX: M54.5 Low back pain (principal); M79.18 Myalgia, other site; Z88.8 Allergy status to other drugs, medicaments and biological substances; J30.81 Allergic rhinitis due to animal (cat) (dog) hair and dander
CPT/HCPCS: 20550; J2250; J3010

== ENCOUNTER → 2018-06-05 | Outpatient (CLI) | payer OTHER ==
[2018-06-05 14:31] VITALS: BP 175/77; PULSE 48; RESP 18
--- NOTE | 2018-06-06 06:17 | P.PN ---
Subjective Progress Note Date: 06/05/18 This is follow-up visit for this patient with a history of severe and chronic low back pain secondary to lumbar degenerative disc disease, lumbar facet arthropathy, We have done an interventional pain procedure radiofrequency ablation of the medial branch lumbar area L3 to S1, and later on ,patient developed right iliolumbar ligament neuralgia , and we did a right iliolumbar ligament injection , (without any steroid because patient had allergy to a steroid ) and he reported that he had good benefit from the injections The patient currently on Neurontin 400 mg every 8 hours, Percocet 10/325 every 6 hours, baclofen 10 mg twice a day Patient denies any side effect of the medication , patient denies any excessive drowsiness or sleepiness, patient denies any suicidal ideation, Patient reported that the current medication is helping to control the pain and improve the activity of daily livings, Patient denies any motor or sensory deficit, denies any change in the bowel movement or urination, patient denies any fever or night sweats. Patient here today for follow-up visit and medication refill Physical Examinations : 1-Constitutiona : Cooperative , not in acute distress . 2-HEENT : nech ; supple , no Lymphadenopathy , normal thyroid size . eyes : no ptosis , no icterus , no photophobia . ENT : normal of hearing , normal oropharynx , no Thrush . 3- Respiratory : Chest clear to auscultations Bilaterally , no wheezing , no Rhonchi . 4- Cardiovascular : regular rate and rhythem , S1 , S2 , no S3 , no S4. 5- Gastrointestinal : abdomen soft no tenderness , bowel sounds , no organomegally . 6- Genitourinary : Defferred . 7- neurologic : Cranial nerve II to XII intact , no focal neurological deffecit . 8-psychatric : alert , oriented X 3 , appropriate affect , intact judgment and insight . 9-Lymphatic : no Lymphadenopathy . 10- musculoskeltal : Lumber spine moter stegnth lower extremities ,thigh and legs 5/5 Right side , 5/5 Left side deep tendon reflexes : normal Knee Jerk , normal ankle Jerk positive lumber facet Loading Test Range of motion of the lumbar spine Flexion 30 degrees, extension 10 degrees strait leg raising test , positive at 60 degree Fabere test positive . Sever tenderness over the right iliolumbar ligament area Assessment and plan= chronic low back pain secondary to lumbar degenerative disc disease , lumbar spondylosis with lumbar facet arthropathy . chronic and current use of high-risk medication (opioids) Patient denies any side effects of the current pain medication and the current treatment/medication helping the patient to do activity of daily living , Diagnoses, prognosis, treatment options, including but not limited to physical therapy, medication management, interventional therapies, and surgery, were discussed with the patient All the questions answered The narcotic consent was signed and patient agreed and understood the side effects and complications of opioid treatment. Patient signed the narcotic agreement, and was orally counseled, not to overuse, not to abuse, not to Divert , not tp sell pain medication, and to take it as prescribed only, Patient was counseled not to drive or operate heavy equipment while using narcotic medication, and advised not to use alcohol or any Illicit drugs while using the narcotis, understanding that lack of compliance with any of the above instructions, will likely to cause discharge from, the pain service, not to renew his narcotic prescriptions [facility] Reviwed and it was apropriate . Medication managements= patient will be given prescription refills for Neurontin 400 mg 3 times a day Percocet 10/325 every 6 hours dispense 120 with one refill baclofen 10 mg twice a day dispense 60 with one refill, patient could benefit from repeat right iliolumbar ligament block ( local anesthetic only without any steroid ) , PQRS Measure Charge Sheet Measure #130: Documentation of Current Meds in Medical Chart: Patient's medications documented in chart Measure #226: Tobacco Use: Screen & Cessation Intervention: Pt not a tobacco user Measure #111: Pneumonia Vaccination: Pneumococcal vaccine administered or previously received Measure #47: Advance Care Plan: Advance care planning discussed & documented, pt chose/unable to give Measure #412: Opioid Treatment Agreement: Documented signed opioid trtmnt agreemnt min once during opioid trtmnt Measure #408: Opioid Therapy Follow-up Evaluation: Patient had f/u eval minimum every 3 months during opioid therapy Measure #317: Preventitive Care & Scrn High Bld Press & F/U: blood pressure, 175 /77, and I explained to the patient that this is very high blood pressure and he has to see his primary care is [facility] Measure #128: Body Mass Index (BMI) Screening & Follow-up: BMI documented ABOVE normal parameters - f/u documented Measure #131: Pain Assessment & Follow-up: Pain positive & plan documented, Follow-up scheduled Measure #431: Unhealthy Alcohol Use Preventative Care & Scrn: Patient not identified as an unhealthy alcohol user PQRS Narrative: Objective - Vital Signs Vital signs: Vital Signs Temp Pulse 48 L 06/05/18 14:25 Resp 18 06/05/18 14:25 BP 175/77 06/05/18 14:25 Pulse Ox 94 L 06/05/18 14:25 Intake & Output 06/05/18 06/05/18 06/06/18 06:59 18:59 06:59 Weight 105.687 kg
== END ==
LOC: PNWHC3 13:11
PROVIDERS: ATTEND Specialist
DX: G89.29 Other chronic pain (principal); M51.36 Other intervertebral disc degeneration, lumbar region; M47.816 Spondylosis without myelopathy or radiculopathy, lumbar region; M46.96 Unspecified inflammatory spondylopathy, lumbar region; Z79.899 Other long term (current) drug therapy; Z79.891 Long term (current) use of opiate analgesic
CPT/HCPCS: 99211

== ENCOUNTER → 2018-06-17 | Outpatient (CLI) | payer OTHER ==
--- NOTE | 2018-06-17 13:49 | CT ---
EXAMINATION TYPE: CT chest wo con DATE OF EXAM: 06/17/2018 COMPARISON: CT chest July 18, 2016. Older chest CT November 11, 2015. HISTORY: SOB CT DLP: 264 mGycm. Automated Exposure Control for Dose Reduction was Utilized. TECHNIQUE: CT scan of the thorax is performed without IV contrast. High-resolution protocol with 1 m m sequences obtained in 10 mm intervals in supine and prone technique FINDINGS: LUNGS: Focal linear scarring in the lingula is redemonstrated. No new suspicious peripheral reticulat ion or fibrosis is identified. No pleural effusion or pneumothorax is seen. No suspicious pulmonary m asses are evident. No significant bronchiectasis is noted. MEDIASTINUM: Lack of IV contrast is noted to limit evaluation for mediastinal and especially hilar ad enopathy. There are no definitive greater than 1 cm hilar or mediastinal lymph nodes. No cardiomega ly or pericardial effusion is seen. OTHER: Liver is diffusely low dense consistent with fatty infiltration. IMPRESSION: Stable linear scarring in the lingula. No new peripheral fibrosis or reticulation seen.
== END | disposition home or self-care (01) ==
LOC: RADCTMAIN 11:46
PROVIDERS: ATTEND Internal Medicine Sleep Medicine
DX: J98.4 Other disorders of lung (principal)
CPT/HCPCS: 71250

== ENCOUNTER → 2018-07-30 | Outpatient (CLI) | payer OTHER ==
[2018-07-30 13:04] VITALS: BP 158/90; PULSE 66; RESP 16; TEMP 98.4
--- NOTE | 2018-07-31 07:11 | P.PN ---
Subjective Progress Note Date: 07/30/18 This is follow-up visit for this patient with a history of severe and chronic low back pain secondary to lumbar degenerative disc disease, lumbar facet arthropathy, We have done an interventional pain procedure radiofrequency ablation of the medial branch lumbar area L3 to S1, and later on ,patient developed right iliolumbar ligament neuralgia , and we did a right iliolumbar ligament injection , (without any steroid because patient had allergy to a steroid ) and he reported that he had good benefit from the injections ,but he reported that the pain relief was only for short-term after the right iliolumbar ligament block The patient currently on Neurontin 400 mg every 8 hours, Percocet 10/325 every 6 hours, baclofen 10 mg twice a day Patient denies any side effect of the medication , patient denies any excessive drowsiness or sleepiness, patient denies any suicidal ideation, Patient reported that the current medication is helping to control the pain and improve the activity of daily livings, Patient denies any motor or sensory deficit, denies any change in the bowel movement or urination, patient denies any fever or night sweats. Patient here today for follow-up visit and medication refill Physical Examinations : -Constitutiona : Cooperative , not in acute distress . -HEENT : nech ; supple , no Lymphadenopathy , normal thyroid size . eyes : no ptosis , no icterus, no photophobia . - musculoskeltal : Lumber spine moter stegnth lower extremities ,thigh and legs 5/5 Right side , 5/5 Left side deep tendon reflexes : normal Knee Jerk , normal ankle Jerk positive lumber facet Loading Test Range of motion of the lumbar spine Flexion 30 degrees, extension 10 degrees strait leg raising test , positive at 60 degree Fabere test positive . tenderness over the right iliolumbar ligament area Assessment and plan= chronic low back pain secondary to lumbar degenerative disc disease , lumbar spondylosis with lumbar facet arthropathy . chronic and current use of high-risk medication (opioids) Patient denies any side effects of the current pain medication and the current treatment/medication helping the patient to do activity of daily living , Diagnoses, prognosis, treatment options, including but not limited to physical therapy, medication management, interventional therapies, and surgery, were discussed with the patient All the questions answered The narcotic consent was signed and patient agreed and understood the side effects and complications of opioid treatment. Patient signed the narcotic agreement, and was orally counseled, not to overuse, not to abuse, not to Divert , not tp sell pain medication, and to take it as prescribed only, Patient was counseled not to drive or operate heavy equipment while using narcotic medication, and advised not to use alcohol or any Illicit drugs while using the narcotis, understanding that lack of compliance with any of the above instructions, will likely to cause discharge from, the pain service, not to renew his narcotic prescriptions [facility] Reviwed and it was apropriate . Medication managements= patient will be given prescription refills for Neurontin 400 mg 3 times a day Percocet 10/325 every 6 hours dispense 120 with one refill baclofen 10 mg twice a day dispense 60 with one refill, , PQRS Measure Charge Sheet Measure #130: Documentation of Current Meds in Medical Chart: Patient's medications documented in chart Measure #226: Tobacco Use: Screen & Cessation Intervention: Pt not a tobacco user Measure #111: Pneumonia Vaccination: Pneumococcal vaccine administered or previously received Measure #47: Advance Care Plan: Advance care planning discussed & documented, pt chose/unable to give Measure #412: Opioid Treatment Agreement: Documented signed opioid trtmnt agreemnt min once during opioid trtmnt Measure #408: Opioid Therapy Follow-up Evaluation: Patient had f/u eval minimum every 3 months during opioid therapy Measure #317: Preventitive Care & Scrn High Bld Press & F/U: blood pressure, 158 /90, and I explained to the patient that this is high blood pressure and he has to see his primary care . Measure #128: Body Mass Index (BMI) Screening & Follow-up: BMI documented ABOVE normal parameters - f/u documented Measure #131: Pain Assessment & Follow-up: Pain positive & plan documented, Follow-up scheduled Measure #431: Unhealthy Alcohol Use Preventative Care & Scrn: Patient not identified as an unhealthy alcohol user PQRS Narrative: Objective - Vital Signs Vital signs: Vital Signs Temp 98.4 F 07/30/18 13:00 Pulse 66 07/30/18 13:00 Resp 16 07/30/18 13:10 BP 158/90 07/30/18 13:00 Pulse Ox 98 07/30/18 13:00 Intake & Output 07/30/18 07/31/18 07/31/18 18:59 06:59 18:59 Weight 105.233 kg
== END ==
LOC: PNWHC3 12:41
PROVIDERS: ATTEND Specialist
DX: G89.29 Other chronic pain (principal); M51.36 Other intervertebral disc degeneration, lumbar region; M47.816 Spondylosis without myelopathy or radiculopathy, lumbar region; Z79.891 Long term (current) use of opiate analgesic; Z79.899 Other long term (current) drug therapy
CPT/HCPCS: 99211

== ENCOUNTER → 2018-09-24 | Outpatient (CLI) | payer OTHER ==
[2018-09-24 12:06] VITALS: BP 193/83; PULSE 61; RESP 20
--- NOTE | 2018-09-25 07:25 | P.PN ---
Subjective Progress Note Date: 09/24/18 This is follow-up visit for this patient with a history of severe and chronic low back pain secondary to lumbar degenerative disc disease, lumbar facet arthropathy, We have done an interventional pain procedure radiofrequency ablation of the medial branch lumbar area L3 to S1, and later on ,patient developed right iliolumbar ligament neuralgia , and we did a right iliolumbar ligament injection, (without any steroid because patient had allergy to a steroid ) and he reported that he had good benefit from the injections ,but he reported that the pain relief was only for short-term after the right iliolumbar ligament block The patient currently on Neurontin 400 mg every 8 hours, Percocet 10/325 every 6 hours, baclofen 10 mg twice a day Patient denies any side effect of the medication , patient denies any excessive drowsiness or sleepiness, patient denies any suicidal ideation, Patient reported that the current medication is helping to control the pain and improve the activity of daily livings, Patient denies any motor or sensory deficit, denies any change in the bowel movement or urination, patient denies any fever or night sweats. Patient here today for follow-up visit and medication refill Physical Examinations : -Constitutiona : Cooperative , not in acute distress . -HEENT : nech ; supple , no Lymphadenopathy , normal thyroid size . eyes : no ptosis , no icterus, no photophobia . - musculoskeltal : Lumber spine moter stegnth lower extremities ,thigh and legs 5/5 Right side , 5/5 Left side deep tendon reflexes : normal Knee Jerk , normal ankle Jerk positive lumber facet Loading Test Range of motion of the lumbar spine Flexion 30 degrees, extension 10 degrees strait leg raising test , positive at 60 degree Fabere test positive . tenderness over the right iliolumbar ligament area Assessment and plan= chronic low back pain secondary to lumbar degenerative disc disease , lumbar spondylosis with lumbar facet arthropathy . chronic and current use of high-risk medication (opioids) Patient denies any side effects of the current pain medication and the current treatment/medication helping the patient to do activity of daily living , Diagnoses, prognosis, treatment options, including but not limited to physical therapy, medication management, interventional therapies, and surgery, were discussed with the patient All the questions answered The narcotic consent was signed and patient agreed and understood the side effects and complications of opioid treatment. Patient signed the narcotic agreement, and was orally counseled, not to overuse, not to abuse, not to Divert , not tp sell pain medication, and to take it as prescribed only, Patient was counseled not to drive or operate heavy equipment while using narcotic medication, and advised not to use alcohol or any Illicit drugs while using the narcotis, understanding that lack of compliance with any of the above instructions, will likely to cause discharge from, the pain service, not to renew his narcotic prescriptions [facility] Reviwed and it was apropriate . Medication managements= patient will be given prescription refills for Neurontin 400 mg 3 times a day Percocet 10/325 every 8 hours dispense 90 with one refill ,baclofen 10 mg twice a day dispense 60 with one refill, , PQRS Measure Charge Sheet Measure #130: Documentation of Current Meds in Medical Chart: Patient's medications documented in chart Measure #226: Tobacco Use: Screen & Cessation Intervention: Pt not a tobacco user Measure #111: Pneumonia Vaccination: Pneumococcal vaccine administered or previously received Measure #47: Advance Care Plan: Advance care planning discussed & documented, pt chose/unable to give Measure #412: Opioid Treatment Agreement: Documented signed opioid trtmnt agreemnt min once during opioid trtmnt Measure #408: Opioid Therapy Follow-up Evaluation: Patient had f/u eval minimum every 3 months during opioid therapy Measure #317: Preventitive Care & Scrn High Bld Press & F/U: blood pressure, elevated, and I explained to the patient that this is high blood pressure and he has to see his primary care . Measure #128: Body Mass Index (BMI) Screening & Follow-up: BMI documented ABOVE normal parameters - f/u documented Measure #131: Pain Assessment & Follow-up: Pain positive & plan documented, Follow-up scheduled Measure #431: Unhealthy Alcohol Use Preventative Care & Scrn: Patient not identified as an unhealthy alcohol user PQRS Narrative: Objective - Vital Signs Vital signs: Vital Signs Temp Pulse 61 09/24/18 12:01 Resp 20 09/24/18 12:01 BP 193/83 09/24/18 12:01 Pulse Ox 97 09/24/18 12:01 Intake & Output 09/24/18 09/25/18 09/25/18 18:59 06:59 18:59 Weight 100.698 kg
== END ==
LOC: PNWHC3 11:41
PROVIDERS: ATTEND Specialist
DX: G89.29 Other chronic pain (principal); M51.36 Other intervertebral disc degeneration, lumbar region; M47.816 Spondylosis without myelopathy or radiculopathy, lumbar region; M46.96 Unspecified inflammatory spondylopathy, lumbar region; Z79.891 Long term (current) use of opiate analgesic; Z79.899 Other long term (current) drug therapy
CPT/HCPCS: 99211

== ENCOUNTER 2018-10-18 05:45 | Observation (INO) | payer OTHER ==
--- NOTE | 2018-10-18 06:00 | ED ---
Chest Pain HPI - General Chief Complaint: Chest Pain Stated Complaint: Chest Pain, Time Seen by Provider: 10/18/18 05:51 Source: patient Mode of arrival: ambulatory Limitations: no limitations - History of Present Illness MD Complaint: chest pain Onset/Timin -: days(s) Onset: during rest Pain Location: left chest Pain Radiation: LUE Severity: moderate Quality: aching Consistency: constant Improves With: nothing Worsens With: nothing Treatments Prior to Arrival: none - Related Data Home Medications Medication Instructions Recorded Confirmed Omeprazole 20 mg PO DAILY 02/03/16 09/24/18 Aspirin [Adult Low Dose Aspirin EC] 81 mg PO DAILY 03/20/16 09/24/18 Montelukast [Singulair] 10 mg PO DAILY 06/29/16 09/24/18 EPINEPHrine (Auto Inject) [Epipen] 0.3 mg IM ONCE PRN 01/25/17 09/24/18 Desvenlafaxine Succinate [Pristiq] 100 mg PO DAILY 12/19/17 09/24/18 Lisinopril [Zestril] 10 mg PO DAILY 12/19/17 09/24/18 cloNIDine HCL [Catapres] 0.1 mg PO TID 12/19/17 09/24/18 traZODone HCL [Desyrel] 100 mg PO HS 12/19/17 09/24/18 Atorvastatin [Lipitor] 40 mg PO DAILY 07/30/18 09/24/18 busPIRone HCl [Buspar] 5 mg PO BID 09/24/18 09/24/18 Previous Rx's Medication Instructions Recorded Baclofen 10 mg PO BID #60 tablet 04/10/18 Gabapentin [Neurontin] 400 mg PO TID #90 cap 04/10/18 oxyCODONE HCL/ACETAMINOPHEN 1 tab PO Q8HR PRN 30 Days #90 tab 04/10/18 [Percocet 10-325 mg] Allergies Allergy/AdvReac Type Severity Reaction Status Date / Time birds Allergy Severe Wheezing, Uncoded 10/18/18 05:50 SOB steriods Allergy Neck Uncoded 10/18/18 05:50 Swelling, SOB Review of Systems ROS Statement: Those systems with pertinent positive or pertinent negative responses have been documented in the HPI. ROS Other: All systems not noted in ROS Statement are negative. Constitutional: Denies: fever, chills, weakness Respiratory: Denies: cough, dyspnea Cardiovascular: Reports: chest pain. Denies: palpitations, orthopnea, edema, syncope Gastrointestinal: Denies: abdominal pain, nausea, vomiting, diarrhea Genitourinary: Denies: dysuria, hematuria Musculoskeletal: Denies: back pain Skin: Denies: rash Neurological: Denies: headache, weakness, numbness EKG Findings - EKG Results: EKG: interpreted by ERMD, sinus rhythm (With PACs, rate 60 bpm), normal axis, normal QRS, normal ST/T, no acute changes Past Medical History Past Medical History: Asthma, CVA/TIA, Hyperlipidemia, Hypertension, Pneumonia Additional Past Medical History / Comment(s): Back pain-LUMBAR, vertigo, STROKES BEHIND THE EYES,. difficulty swallowing. History of Any Multi-Drug Resistant Organisms: None Reported Past Surgical History: Appendectomy, Hernia Repair, Orthopedic Surgery Additional Past Surgical History / Comment(s): RT INGUINAL HERNIA , RT ROTATOR CUFF SX, Pain procedures. Past Anesthesia/Blood Transfusion Reactions: No Reported Reaction Past Psychological History: Anxiety, Depression Smoking Status: Former smoker Past Alcohol Use History: None Reported Past Drug Use History: None Reported - Past Family History Father Family Medical History: Cancer Mother Family Medical History: Hypertension General Exam Limitations: no limitations General appearance: alert, in no apparent distress Head exam: Present: atraumatic, normocephalic Eye exam: Present: normal appearance. Absent: scleral icterus, conjunctival injection ENT exam: Present: normal oropharynx Neck exam: Present: normal inspection Respiratory exam: Present: normal lung sounds bilaterally. Absent: respiratory distress, wheezes, rales, rhonchi, stridor Cardiovascular Exam: Present: regular rate, normal rhythm, normal heart sounds. Absent: systolic murmur, diastolic murmur, rubs, gallop GI/Abdominal exam: Present: soft. Absent: distended, tenderness, guarding, rebound, rigid, mass Extremities exam: Present: normal inspection, normal capillary refill. Absent: pedal edema, calf tenderness Back exam: Present: normal inspection. Absent: CVA tenderness (R), CVA tenderness (L) Neurological exam: Present: alert Skin exam: Present: warm, dry, intact, normal color. Absent: rash Course Vital Signs 10/18/18 10/18/18 10/18/18 05:47 05:52 05:56 Temperature 98.6 F Pulse Rate 62 70 Respiratory 18 22 20 Rate Blood Pressure 149/82 140/80 O2 Sat by Pulse 98 98 Oximetry 10/18/18 06:49 Temperature 98.2 F Pulse Rate 83 Respiratory 20 Rate Blood Pressure 142/82 O2 Sat by Pulse 98 Oximetry Chest Pain MDM - MDM This patient is a 57-year-old man presenting with chest pain. He does have minimal elevation of lipase. There is however some left arm numbness associated, so patient admitted for serial cardiac enzymes and telemetry monitoring as well as cardiology consultation. Disposition Clinical Impression: Chest pain Disposition: ADMITTED IP TO THIS HOSP Condition: Fair Instructions (If sedation given, give patient instructions): Chest Pain (ED) Is patient prescribed a controlled substance at d/c from ED?: No Referrals: Fabiana Monroy MD [Primary Care Provider] - 1-2 days
[2018-10-18 06:10] LABS: Basophils % (A) 1 %; Eosinophils # (A) 0.2 k/uL (0-0.7); Eosinophils % (A) 3 %; HCT 39.8 % (39.0-53.0); Lymphocytes # (A) 3.8 k/uL (1.0-4.8); Lymphocytes % (A) 42 %; MCH 29.6 pg (25.0-35.0); MCHC 32.7 g/dL (31.0-37.0); MCV 90.5 fL (80.0-100.0); Mean Platelet Volume 7.7; Monocytes # (A) 0.5 k/uL (0-1.0); Monocytes % (A) 6 %; Neutrophils # (A) 4.2 k/uL (1.3-7.7); Neutrophils % (A) 47 %; Platelet Count 256 k/uL (150-450); RBC 4.39 m/uL (4.30-5.90); RDW 15.1 % (11.5-15.5); WBC 8.9 k/uL (3.8-10.6)
[2018-10-18 06:21] LABS: ALT 37 U/L (21-72); AST 36 U/L (17-59); Albumin 3.8 g/dL (3.5-5.0); Alkaline Phosphatase 84 U/L (38-126); Amylase 94 U/L (30-110); Anion Gap 10 mmol/L; Blood Urea Nitrogen 16 mg/dL (9-20); Calcium 8.9 mg/dL (8.4-10.2); Carbon Dioxide 19 mmol/L (22-30); Chloride 111 mmol/L (98-107); Glucose 117 mg/dL (74-99); Lipase 461 U/L (23-300); Magnesium 1.6 mg/dL (1.6-2.3); Potassium 4.3 mmol/L (3.5-5.1); Sodium 140 mmol/L (137-145); Total Bilirubin 0.3 mg/dL (0.2-1.3); Total Protein 6.4 g/dL (6.3-8.2)
--- NOTE | 2018-10-18 06:37 | XR ---
EXAM: XR Chest, 1 View CLINICAL HISTORY: ITS.REASON XR Reason: chest pain TECHNIQUE: Frontal view of the chest. COMPARISON: 11/27/2016; CT chest 06/17/2018 FINDINGS: Lungs: Stable diminished lung volumes. Linear changes at the left lung base noted. The pulmonary vasculature demonstrates no radiographic evidence for significant abnormality. Pleural space: Unremarkable. No pneumothorax. Heart: The cardiac silhouette remains prominent consistent with prominent epicardial fat. Mediastinum: Mediastinal contours are within normal limits. The trachea is midline. Bones/joints: Unremarkable. IMPRESSION: Stable diminished lung volumes. Linear changes at the left lung base are presumed subsegmental atelectasis. No lobar consolidation. No large pleural effusion or pneumothorax.
[2018-10-18] MEDS ORDERED: NITROGLYCERIN SL TABS 0.4 MG TAB SUBLINGUAL PRN (07:12)
[2018-10-18] MEDS ORDERED: EPINEPHrine 1 MG/ML 1 ML AMP IM PRN (07:14)
[2018-10-18] MEDS ORDERED: LISINOPRIL 10 MG TAB PO SCH (09:00)
[2018-10-18] MEDS ORDERED: busPIRone HCl 5 MG TAB PO SCH (09:00)
--- NOTE | 2018-10-18 09:15 | CONS ---
CONSULTATION CHIEF COMPLAINT: Chest pain. Ferny is a 57-year-old gentleman with history of hypertension, dyslipidemia, non- insulin-dependent diabetes, who presented to hospital complaining of chest pain. He has been having this chest discomfort for the last several weeks. In fact had recently been seen by Dr. Mickey Almonte, his primary legal administrator. There is mild intensity, unrelated exertion with diaphoresis with some left arm radiation. At the time of my evaluation, patient appears comfortable at rest and is free of symptoms. EKG shows normal sinus rhythm and is with PACs but is otherwise within normal limits. First set of troponin is negative. Hemoglobin is normal at 15. Creatinine is 0.8. PAST MEDICAL HISTORY: Significant for hypertension, COPD, and dyslipidemia. CURRENT MEDICATIONS: Include Lipitor, aspirin, Pristiq, Singulair, Zestoretic, Catapres, Glucophage, Percocet, and Desyrel. ALLERGIES: STEROIDS. FAMILY HISTORY: Negative for premature coronary artery disease. SOCIAL HISTORY: Negative for smoking, EtOH abuse, or drug abuse. REVIEW OF SYSTEMS: HEENT: Unremarkable/ CARDIAC: As described above. RESPIRATORY: Negative/ GI: Negative. negative. SKIN: Negative. MUSCULOSKELETAL: Significant for arthritis psychosocial negative endocrine negative constitutional negative oncological negative. Rest of the system review is not relevant. PHYSICAL EXAM: Comfortable at rest. Vital signs are stable. There is no jugular venous distention. Carotid upstroke is normal. There is no bruit. There is a systolic murmur at the apex. Chest exam reveals good air entry bilaterally. Heart exam reveals first and second heart sounds. No gallop. No murmur. No rub. Abdomen is soft, nontender. Exam of extremities did not reveal any edema. Peripheral pulses are felt. EKG does not reveal ischemic changes. Cardiac enzymes have been negative. ASSESSMENT: 1. Precordial chest pain. 2. Hypertension. 3. Dyslipidemia. PLAN: We will review the echocardiogram done recently. I will obtain serial CPKs and EKGs and decide on further course of action based on how he evolves. KIRSTIN / DARRENN: [id number] /
[2018-10-18] MEDS: oxyCODONE-APAP 10-325MG 1 EACH TAB PO PRN ×2 (10:07→19:21)
[2018-10-18] MEDS: busPIRone HCl 5 MG TAB PO SCH ×2 (10:12→20:10)
[2018-10-18] MEDS: ATORVASTATIN 40 MG TAB PO SCH (10:12)
[2018-10-18] MEDS: LISINOPRIL-HCTZ 20-25 MG 1 EACH TAB PO SCH (10:13)
[2018-10-18] MEDS: cloNIDine HCL 0.1 MG TAB PO SCH ×3 (10:13→20:10)
[2018-10-18] MEDS: MONTELUKAST 10 MG TAB PO SCH (10:13)
[2018-10-18] MEDS: GABAPENTIN 400 MG CAP PO SCH ×3 (10:13→20:10)
[2018-10-18] MEDS: BACLOFEN 10 MG TAB PO SCH ×2 (10:13→20:09)
[2018-10-18] MEDS: PANTOPRAZOLE 40 MG TABLET PO SCH (10:33)
[2018-10-18] MEDS: ASPIRIN 325 MG TAB PO SCH (10:35)
[2018-10-18] MEDS: DESVENLAFAXINE SUCCINATE 50 MG TAB.ER.24H PO SCH (10:35)
--- NOTE | 2018-10-18 13:12 | ECHOF ---
Referral Reason:cp MEASUREMENTS -------- HEIGHT: 182.9 cm WEIGHT: 103.4 kg BP: 154/81 RVIDd: 2.8 cm (< 3.3) IVSd: 1.2 cm (0.6 - 1.1) LVIDd: 4.7 cm (3.9 - 5.3) LVPWd: 1.0 cm (0.6 - 1.1) IVSs: 1.4 cm LVIDs: 3.2 cm LVPWs: 1.7 cm LA Diam: 3.6 cm (2.7 - 3.8) LAESV Index (A-L): 24.69 ml/m Ao Diam: 3.1 cm (2.0 - 3.7) AV Cusp: 2.2 cm (1.5 - 2.6) MV EXCURSION: 22.213 mm (> 18.000) MV EF SLOPE: 167 mm/s (70 - 150) EPSS: 0.4 cm MV E Luis Enrique: 1.13 m/s MV DecT: 177 ms MV A Luis Enrique: 0.72 m/s MV E/A Ratio: 1.57 FINDINGS -------- Sinus rhythm. This was a technically adequate study. The left ventricular size is normal. There is borderline concentric left ventricular hypertrophy. Overall left ventricular systolic function is normal with, an EF between 60 - 65 %. The right ventricle is normal in size. Left atrium is normal size by volume. The right atrium is normal in size and function. The aortic valve is trileaflet and appears structurally normal. The mitral valve is normal. The tricuspid valve appears structurally normal. The pulmonic valve was not well visualized. The aortic root size is normal. There is no pericardial effusion. CONCLUSIONS -------- 1. Sinus rhythm. 2. This was a technically adequate study. 3. The left ventricular size is normal. 4. There is borderline concentric left ventricular hypertrophy. 5. Overall left ventricular systolic function is normal with, an EF between 60 - 65 %. 6. The right ventricle is normal in size. 7. Left atrium is normal size by volume. 8. The right atrium is normal in size and function. 9. The aortic valve is trileaflet and appears structurally normal. 10. The mitral valve is normal. 11. The tricuspid valve appears structurally normal. 12. The pulmonic valve was not well visualized. 13. The aortic root size is normal. 14. There is no pericardial effusion. DATE PULLER: Patricia Jarrell RDCS
--- NOTE | 2018-10-18 16:43 | P.HPIM ---
History of Present Illness Chief Complaint: chest pain this is a 57-year-old male who comes in with above-mentioned complaints.patient says that he's been having chest pain going on for the past few weekshe also started having numbness of his left arm. Patient thus came to the ER for further evaluation and management. At the time examination the patient was having no chest pain he says that he's doing better at this time. He does not complain of any cough or shortness of breath, he does not complain of any belly pain, nausea and vomiting, or diarrhea constipation, no tingling numbness on in the 70s, and additional rest. ER course-temperature 86.6 pulse 62 respiration 18 blood pressure 149/82per labwork was done which showed WBC 8.9 hemoglobin 13.0 platelets 256 sodium 140 potassium 4.3 B1 6 and creatinine 0.84 d-dimer 0.31. Troponins were negative so far. Lipase is 461. Patient was thus admitted to the hospitalist service for cardiology evaluation Review of Systems All systems: negative Past Medical History Past Medical History: Asthma, CVA/TIA, Hyperlipidemia, Hypertension, Pneumonia Additional Past Medical History / Comment(s): Back pain-LUMBAR, vertigo, STROKES BEHIND THE EYES,. difficulty swallowing. History of Any Multi-Drug Resistant Organisms: None Reported Past Surgical History: Appendectomy, Hernia Repair, Orthopedic Surgery Additional Past Surgical History / Comment(s): RT INGUINAL HERNIA , RT ROTATOR CUFF SX, Pain procedures. Past Anesthesia/Blood Transfusion Reactions: No Reported Reaction Past Psychological History: Anxiety, Depression Additional Psychological History / Comment(s): . Smoking Status: Former smoker Past Alcohol Use History: None Reported Additional Past Alcohol Use History / Comment(s): STARTED SMOKING AT AGE 18 SMOKED 1PPD, Quit Smoking 05/11. Past Drug Use History: None Reported Additional Drug Use History / Comment(s): . - Past Family History Father Family Medical History: Cancer Mother Family Medical History: Hypertension Medications and Allergies Home Medications Medication Instructions Recorded Confirmed Type Omeprazole 20 mg PO DAILY 02/03/16 10/18/18 History Aspirin [Adult Low Dose Aspirin EC] 81 mg PO DAILY 03/20/16 10/18/18 History Montelukast [Singulair] 10 mg PO DAILY 06/29/16 10/18/18 History EPINEPHrine (Auto Inject) [Epipen] 0.3 mg IM ONCE PRN 01/25/17 10/18/18 History Desvenlafaxine Succinate [Pristiq] 100 mg PO DAILY 12/19/17 10/18/18 History cloNIDine HCL [Catapres] 0.1 mg PO TID 12/19/17 10/18/18 History traZODone HCL [Desyrel] 100 mg PO HS 12/19/17 10/18/18 History Baclofen 10 mg PO BID #60 tablet 04/10/18 10/18/18 Rx Gabapentin [Neurontin] 400 mg PO TID #90 cap 04/10/18 10/18/18 Rx oxyCODONE HCL/ACETAMINOPHEN 1 tab PO Q8HR PRN 30 Days #90 tab 04/10/18 10/18/18 Rx [Percocet 10-325 mg] Atorvastatin [Lipitor] 40 mg PO DAILY 07/30/18 10/18/18 History Lisinopril-Hctz 20-25 mg 1 tab PO DAILY 10/18/18 10/18/18 History [Zestoretic 20-25] Tiotropium [place] [Spiriva 1 spray INHALATION RT-DAILY PRN 10/18/18 10/18/18 History Respimat] busPIRone HCL 15 mg PO BID 10/18/18 10/18/18 History metFORMIN HCL [Glucophage] 500 mg PO BID 10/18/18 10/18/18 History Allergies Allergy/AdvReac Type Severity Reaction Status Date / Time birds Allergy Severe Wheezing, Uncoded 10/18/18 05:50 SOB steriods Allergy Neck Uncoded 10/18/18 05:50 Swelling, SOB Physical Exam Vitals: Vital Signs Temp Pulse Pulse Resp BP BP BP 10/18/18 15:38 98.3 F 65 18 125/84 10/18/18 12:00 16 10/18/18 11:03 97.7 F 16 161/99 10/18/18 10:19 17 10/18/18 09:19 98.1 F 17 154/81 10/18/18 08:51 97.7 F 65 18 143/91 10/18/18 08:00 66 15 140/80 10/18/18 06:49 98.2 F 83 20 142/82 10/18/18 05:56 70 20 140/80 10/18/18 05:52 22 05/24/19 05:47 98.6 F 62 18 149/82 Pulse Ox 10/18/18 15:38 98 10/18/18 12:00 10/18/18 11:03 99 10/18/18 10:19 10/18/18 09:19 99 10/18/18 08:51 98 10/18/18 08:00 98 10/18/18 06:49 98 10/18/18 05:56 98 10/18/18 05:52 10/18/18 05:47 98 Intake and Output 10/18/18 10/18/18 10/18/18 06:59 14:59 22:59 Intake Total 240 Balance 240 Intake: Oral 240 Other: Voiding Method Toilet Weight 103.419 kg On exam, alert and oriented x3. HEENT: Conjunctivae normal. eyes normal. NECK: No JVD. No thyroid enlargement. No LNs CARDIOVASCULAR: S1-S2 heard RESPIRATION: breath sounds are equally both sides, no rhonchi or rales no wheezing ABDOMEN: Soft, nontender . No guarding. no masses palpable. No ascites, No hepatosplenomegaly.Bowel sounds heard. LEGS: No edema. no swelling NERVOUS SYSTEM: Cranial N 2-12 grossly normal. Moves all 4 limbs. No focal deficits. No sensory deficit. No signs of cerebellar dysfucntion. Skin: no ulcer no rash Results CBC & Chem 7: 10/18/18 06:02 10/18/18 06:02 Labs: Abnormal Lab Results - Last 24 Hours (Table) 10/18/18 Range/Units 06:02 Chloride 111 H (98-107) mmol/L Carbon Dioxide 19 L (22-30) mmol/L Glucose 117 H (74-99) mg/dL Lipase 461 H (23-300) U/L Thrombosis Risk Factor Assmnt - Choose All That Apply Any of the Below Risk Factors Present?: Yes Each Factor Represents 1 point: Obesity (BMI >25) Other Risk Factors: No Thrombosis Risk Factor Assessment Total Risk Factor Score: 1 Thrombosis Risk Factor Assessment Level: Low Risk Assessment and Plan Assessment: - chest pain need to rule out cardiac cause - Hypertension - Hyperlipidemia - status CVA/TIA - History of back pain - History of pneumonia Plan - We'll admit the patient to observation with telemetry - Cardiology consulted and appreciate recommendations - Troponins have a monitor at this stage - Depending upon the troponin trend further recommendations - Continue home medications - DVT and GI prophylaxis - We'll order for lab work in the morning - Patient is an observation - Patient is full code
[2018-10-18] MEDS ORDERED: traZODone HCL 100 MG TAB PO SCH (21:00)
[2018-10-19 03:54] VITALS: RESP 18
[2018-10-19 06:56] LABS: HCT 40.5 % (39.0-53.0); HGB 13.3 gm/dL (13.0-17.5); MCH 30.1 pg (25.0-35.0); MCHC 32.8 g/dL (31.0-37.0); Platelet Count 267 k/uL (150-450); RBC 4.41 m/uL (4.30-5.90); RDW 15.7 % (11.5-15.5); WBC 12.1 k/uL (3.8-10.6)
[2018-10-19 07:06] LABS: Anion Gap 8 mmol/L; Blood Urea Nitrogen 18 mg/dL (9-20); Calcium 9.5 mg/dL (8.4-10.2); Carbon Dioxide 23 mmol/L (22-30); Chloride 108 mmol/L (98-107); Cholesterol 102 mg/dL (<200); Glucose 109 mg/dL (74-99); HDL Cholesterol 47 mg/dL (40-60); LDL Cholesterol,Calculated 25 mg/dL (0-99); Potassium 4.4 mmol/L (3.5-5.1); Sodium 139 mmol/L (137-145); Triglycerides 150 mg/dL (<150)
[2018-10-19 08:05] VITALS: TEMP 97.8
[2018-10-19] MEDS: MONTELUKAST 10 MG TAB PO SCH (08:27)
[2018-10-19] MEDS: busPIRone HCl 5 MG TAB PO SCH (08:27)
[2018-10-19] MEDS: PANTOPRAZOLE 40 MG TABLET PO SCH (08:27)
[2018-10-19] MEDS: BACLOFEN 10 MG TAB PO SCH (08:27)
[2018-10-19] MEDS: ATORVASTATIN 40 MG TAB PO SCH (08:28)
[2018-10-19] MEDS: DESVENLAFAXINE SUCCINATE 50 MG TAB.ER.24H PO SCH (08:28)
[2018-10-19] MEDS: LISINOPRIL-HCTZ 20-25 MG 1 EACH TAB PO SCH (08:28)
[2018-10-19] MEDS: GABAPENTIN 400 MG CAP PO SCH (08:28)
[2018-10-19] MEDS: cloNIDine HCL 0.1 MG TAB PO SCH (08:28)
[2018-10-19] MEDS: ASPIRIN 325 MG TAB PO SCH (08:28)
[2018-10-19] MEDS: oxyCODONE-APAP 10-325MG 1 EACH TAB PO PRN (08:33)
[2018-10-19] MEDS ORDERED: ASPIRIN 325 MG TAB PO SCH (09:00)
--- NOTE | 2018-10-19 11:42 | P.PN ---
Progress Note - Text Progress Note Date: 10/19/18 The patient is a 57-year-old male with past medical history of hypertension, dyslipidemia, diabetes, and diverticulitis, who is currently being followed for chest discomfort. He presented to the hospital with new onset of chest pain, which felt like someone was beating him up from the inside. EKG shows sinus mechanism with PVCs. No ST or T-wave changes. Troponins negative 3. Echocardiogram shows normal LV function without any significant valvular abnormalities. On exam he is currently lying comfortably in bed with no acute distress. He denies any current chest discomfort, dyspnea, or palpitations. His heart rate is noticeably irregular on exam. No gallops murmurs or rubs. No elevated JVP. No lower extremity edema. Abdomen is tender to palpation in the epigastric area. PAST MEDICAL HISTORY: Hypertension, dyslipidemia, diabetes mellitus type 2, diverticulitis, COPD REVIEW OF SYSTEMS: No fever or chills. No cough or expectoration. No diaphoresis. Patient denies headache, dizziness, blurred vision, double vision.. No nausea, vomiting. No hematochezia. No hematemesis. Denies any black stools or blood in his stools. Denies dysuria or hematuria. No muscle weakness or numbness. HEENT: Head is atraumatic, normocephalic. Pupils are equal, round. Sclerae anicteric. Conjunctivae are clear. Mucous membranes of the mouth are moist. Neck is supple. There is no jugular venous distention. No carotid bruit is heard. CHEST EXAMINATION: Lungs are clear to auscultation. No chest wall tenderness is noted on palpation or with deep breathing. HEART EXAMINATION: Heart regular rate and rhythm. S1, S2 heard. No murmurs, gallops or rub. ABDOMEN: Soft. Tender to palpation. Bowel sounds are heard. No organomegaly noted. EXTREMITIES: 2+ peripheral pulses with no evidence of peripheral edema and no calf tenderness noted. NEUROLOGIC EXAMINATION: Patient is awake, alert and oriented x3. LABORATORY DATA: Complete blood count 0.1, hemoglobin 13.3, sodium 139, potassium 4.4, BUN 18, creatinine 0.95, magnesium 1.6, troponins negative 3, triglycerides 150, HDL 47, LDL 25, lipase 461. FINAL ASSESSMENT AND PLAN: Precordial chest discomfort Hypertension Dyslipidemia PLAN: We will continue current medication regimen. Recommend follow up with primary claim rep outpatient.
[2018-10-19 12:06] VITALS: BP 107/69; PULSE 69
--- NOTE | 2018-10-19 15:08 | P.DS ---
Providers Date of admission: 10/18/18 07:12 Expected date of discharge: 10/19/18 Attending physician: Latasha Smith Consults: 10/18/18 07:12 Consult Physician Routine Consulting Provider: Declan Rose Consult Reason/Comments: chest pain Do you want consulting provider notified?: Yes Primary care physician: Fabiana Monroy Hospital Course: - Precordial chest discomfort resolved right now - Hypertension - Hyperlipidemia - History of CVA - History of back pain - History of pneumonia Hospital course This is a 57-year-old gentleman with a past history stated above comes in for chest pain. His EKG did not show any acute ST-T wave changes. His troponins were negative. Cardiology was consulted. Who suggested the patient can be followed up as an outpatient and that no acute interventions needed at this time. Patient has an appointment Dr. Almonte in 1 week. On 10/19/2018 On exam, alert and oriented x3. HEENT: Conjunctivae normal. eyes normal. NECK: No JVD. No thyroid enlargement. No LNs CARDIOVASCULAR: S1, S2 muffled. No murmur RESPIRATION: Breath sounds diminished in the bases. No rhonchi or crackles. No bronchial breathing. ABDOMEN: Soft, nontender . No guarding. no masses palpable. No ascites, No hepatosplenomegaly.Bowel sounds heard. LEGS: No edema. no swelling NERVOUS SYSTEM: Cranial N 2-12 grossly normal. Moves all 4 limbs. No focal deficits. No sensory deficit. No signs of cerebellar dysfucntion. Skin: no ulcer no rash Joints: No active swelling. No inflammation. Lymphatic system. No LN neck axilla or groin. He still does be discharged to follow up with his primary care doctor and his receptionist secretary on the date stated below Patient Condition at Discharge: Fair Plan - Discharge Summary Discharge Rx Participant: No New Discharge Prescriptions: Continue Omeprazole 20 mg PO DAILY Aspirin [Adult Low Dose Aspirin EC] 81 mg PO DAILY Montelukast [Singulair] 10 mg PO DAILY EPINEPHrine (Auto Inject) [Epipen] 0.3 mg IM ONCE PRN PRN Reason: Anaphylaxis cloNIDine HCL [Catapres] 0.1 mg PO TID Desvenlafaxine Succinate [Pristiq] 100 mg PO DAILY traZODone HCL [Desyrel] 100 mg PO HS oxyCODONE HCL/ACETAMINOPHEN [Percocet 10-325 mg] 1 tab PO Q8HR PRN 30 Days #90 tab PRN Reason: Pain Baclofen 10 mg PO BID #60 tablet Gabapentin [Neurontin] 400 mg PO TID #90 cap Atorvastatin [Lipitor] 40 mg PO DAILY metFORMIN HCL [Glucophage] 500 mg PO BID Tiotropium [place] [Spiriva Respimat] 1 spray INHALATION RT-DAILY PRN PRN Reason: Shortness Of Breath Lisinopril-Hctz 20-25 mg [Zestoretic 20-25] 1 tab PO DAILY busPIRone HCL 15 mg PO BID Discharge Medication List Omeprazole 20 mg PO DAILY 02/03/16 [History] Aspirin [Adult Low Dose Aspirin EC] 81 mg PO DAILY 03/20/16 [History] Montelukast [Singulair] 10 mg PO DAILY 06/29/16 [History] EPINEPHrine (Auto Inject) [Epipen] 0.3 mg IM ONCE PRN 01/25/17 [History] Desvenlafaxine Succinate [Pristiq] 100 mg PO DAILY 12/19/17 [History] cloNIDine HCL [Catapres] 0.1 mg PO TID 12/19/17 [History] traZODone HCL [Desyrel] 100 mg PO HS 12/19/17 [History] Baclofen 10 mg PO BID #60 tablet 04/10/18 [Rx] Gabapentin [Neurontin] 400 mg PO TID #90 cap 04/10/18 [Rx] oxyCODONE HCL/ACETAMINOPHEN [Percocet 10-325 mg] 1 tab PO Q8HR PRN 30 Days #90 tab 04/10/18 [Rx] Atorvastatin [Lipitor] 40 mg PO DAILY 07/30/18 [History] Lisinopril-Hctz 20-25 mg [Zestoretic 20-25] 1 tab PO DAILY 10/18/18 [History] Tiotropium [place] [Spiriva Respimat] 1 spray INHALATION RT-DAILY PRN 10/18/18 [History] busPIRone HCL 15 mg PO BID 10/18/18 [History] metFORMIN HCL [Glucophage] 500 mg PO BID 10/18/18 [History] Follow up Appointment(s)/Referral(s): Fabiana Monroy MD [Primary Care Provider] - 1-2 days Patient Instructions/Handouts: Chest Pain (ED) Activity/Diet/Wound Care/Special Instructions: If he had increased chest pain, any increased cough and shortness of breath, any lightheadedness or dizziness, any headache, loss of vision or blurry vision. Please call [phone] and come to the ER Discharge Disposition: HOME SELF-CARE
== END 2018-10-19 15:30 | disposition home or self-care (01) ==
LOC: EC 05:45 → 1SOBS 07:12
PROVIDERS: ADMIT Hospitalist; ATTEND Hospitalist
DX: R07.2 Precordial pain (principal); J44.9 Chronic obstructive pulmonary disease, unspecified; I10 Essential (primary) hypertension; I49.3 Ventricular premature depolarization; E78.5 Hyperlipidemia, unspecified; F41.9 Anxiety disorder, unspecified; F32.9 Major depressive disorder, single episode, unspecified; E11.9 Type 2 diabetes mellitus without complications; R61 Generalized hyperhidrosis; R20.0 Anesthesia of skin; M54.5 Low back pain; R13.10 Dysphagia, unspecified; E66.9 Obesity, unspecified; Z68.30 Body mass index [BMI] 30.0-30.9, adult; K57.90 Diverticulosis of intestine, part unspecified, without perforation or abscess without bleeding; Z79.82 Long term (current) use of aspirin; Z79.84 Long term (current) use of oral hypoglycemic drugs; Z79.899 Other long term (current) drug therapy; Z88.8 Allergy status to other drugs, medicaments and biological substances; Z91.048 Other nonmedicinal substance allergy status; Z86.73 Personal history of transient ischemic attack (TIA), and cerebral infarction without residual deficits; Z90.49 Acquired absence of other specified parts of digestive tract; Z87.891 Personal history of nicotine dependence; Z87.01 Personal history of pneumonia (recurrent); Z82.49 Family history of ischemic heart disease and other diseases of the circulatory system; Z80.9 Family history of malignant neoplasm, unspecified
CPT/HCPCS: 99285; 36415; 93005; 93306; 85379; 80061; 80053; 80048; 82150; 83690; 83735; 84484; 85025; 85027; 71045; G0378 ×2

== ENCOUNTER → 2018-11-19 | Outpatient (CLI) | payer OTHER ==
[2018-11-19 12:01] VITALS: BP 159/81; PULSE 58; RESP 18
--- NOTE | 2018-11-19 12:19 | P.PAINPG ---
Subjective Progress Note Date: 11/19/18 This is follow-up visit for this patient with a history of severe and chronic low back pain secondary to lumbar degenerative disc disease, lumbar spondylosis with facet arthropathy, We have done an interventional pain procedure radiofrequency ablation of the medial branch lumbar area L3 to S1 The patient currently on Neurontin 400 mg every 8 hours, Percocet 10/325 every 6 hours, baclofen 10 mg twice a day Patient denies any side effect of the medication , patient denies any excessive drowsiness or sleepiness, patient denies any suicidal ideation, Patient reported that the current medication is helping to control the pain and improve the activity of daily livings, Patient denies any motor or sensory deficit, denies any change in the bowel movement or urination, patient denies any fever or night sweats. Patient here today for follow-up visit and medication refill Physical Examinations : -Constitutiona : Cooperative , not in acute distress . -HEENT : nech ; supple , no Lymphadenopathy , normal thyroid size . eyes : no ptosis , no icterus, no photophobia . - musculoskeltal : Lumber spine moter stegnth lower extremities ,thigh and legs 5/5 Right side , 5/5 Left side deep tendon reflexes : normal Knee Jerk , normal ankle Jerk positive lumber facet Loading Test Range of motion of the lumbar spine Flexion 30 degrees, extension 10 degrees strait leg raising test , positive at 60 degree Fabere test positive Assessment and plan= chronic low back pain secondary to lumbar degenerative disc disease , lumbar spondylosis with lumbar facet arthropathy . chronic and current use of high-risk medication (opioids) Patient denies any side effects of the current pain medication and the current treatment/medication helping the patient to do activity of daily living , Diagnoses, prognosis, treatment options, including but not limited to physical therapy, medication management, interventional therapies, and surgery, were discussed with the patient All the questions answered The narcotic consent was signed and patient agreed and understood the side effects and complications of opioid treatment. Patient signed the narcotic agreement, and was orally counseled, not to overuse, not to abuse, not to Divert , not tp sell pain medication, and to take it as prescribed only, Patient was counseled not to drive or operate heavy equipment while using narcotic medication, and advised not to use alcohol or any Illicit drugs while using the narcotis, understanding that lack of compliance with any of the above instructions, will likely to cause discharge from, the pain service, not to renew his narcotic prescriptions MAPS Reviwed and it was apropriate . Medication managements= patient will be given prescription refills for Neurontin 400 mg 3 times a day, Percocet 10/325 every 6 hours dispense 120 with one refill ,baclofen 10 mg twice a day dispense 60 with one refill, Urine drug screen ordered today , Objective - Vital Signs Vital signs: Vital Signs Temp Pulse 58 L 11/19/18 11:55 Resp 18 11/19/18 11:55 BP 159/81 11/19/18 11:55 Pulse Ox 96 11/19/18 11:55 Intake & Output 11/18/18 11/19/18 11/19/18 18:59 06:59 18:59 Weight 104.326 kg PQRS Measure Charge Sheet Measure #130: Documentation of Current Meds in Medical Chart: Patient's m edications documented in chart Measure #226: Tobacco Use: Screen & Cessation Intervention: Pt not a tobacco user Measure #111: Pneumonia Vaccination: Pneumococcal vaccine NOT administered or previously given Measure #47: Advance Care Plan: Advance care planning discussed & documented, pt chose/unable to give Measure #412: Opioid Treatment Agreement: Documented signed opioid trtmnt agreemnt min once during opioid trtmnt Measure #408: Opioid Therapy Follow-up Evaluation: Patient had f/u eval minimum every 3 months during opioid therapy Measure #317: Preventitive Care & Scrn High Bld Press & F/U: Pre-hypertensive or hypertensive BP documented, pt will f/u with PCP Measure #128: Body Mass Index (BMI) Screening & Follow-up: BMI documented ABOVE normal parameters - f/u documented Measure #131: Pain Assessment & Follow-up: Pain positive & plan documented, Follow-up scheduled Measure #431: Unhealthy Alcohol Use Preventative Care & Scrn: Patient not identified as an unhealthy alcohol user PQRS Narrative: Smoking Status Former smoker Narcotic Agreement Date Signed 02/13/18 Blood Pressure 159/81 Pain Intensity [Bilateral 8 Lower Back] Scale Used Numeric (1 - 10) Hx Alcohol Use (MH) No Home Medications: Ambulatory Orders Omeprazole 20 mg PO DAILY 02/03/16 Aspirin [Adult Low Dose Aspirin EC] 81 mg PO DAILY 03/20/16 Montelukast [Singulair] 10 mg PO DAILY 06/29/16 EPINEPHrine (Auto Inject) [Epipen] 0.3 mg IM ONCE PRN 01/25/17 Desvenlafaxine Succinate [Pristiq] 100 mg PO DAILY 12/19/17 cloNIDine HCL [Catapres] 0.1 mg PO TID 12/19/17 traZODone HCL [Desyrel] 100 mg PO HS 12/19/17 Baclofen 10 mg PO BID #60 tablet 04/10/18 Gabapentin [Neurontin] 400 mg PO TID #90 cap 04/10/18 oxyCODONE HCL/ACETAMINOPHEN [Percocet 10-325 mg] 1 tab PO Q8HR PRN 30 Days #90 tab 04/10/18 Atorvastatin [Lipitor] 40 mg PO DAILY 07/30/18 Lisinopril-Hctz 20-25 mg [Zestoretic 20-25] 1 tab PO DAILY 10/18/18 Tiotropium [place] [Spiriva Respimat] 1 spray INHALATION RT-DAILY PRN 10/18/18 busPIRone HCL 15 mg PO BID 10/18/18 metFORMIN HCL [Glucophage] 500 mg PO BID 10/18/18 Controlled Substance Measures - Controlled Substance Measures Is patient prescribed a controlled substance at discharge?: Yes When asked, does pt state using other controlled substances?: No If prescribed controlled substance>3 days was MAPS reviewed?: Yes If Rx opioid, was Start Talking consent form obtained?: Yes If opioid is for acute pain is fill amount 7 days or less?: No Was information provided regarding opioid addiction?: Yes
== END ==
LOC: PNWHC3 11:46
PROVIDERS: ATTEND Specialist
DX: G89.29 Other chronic pain (principal); M51.36 Other intervertebral disc degeneration, lumbar region; M47.816 Spondylosis without myelopathy or radiculopathy, lumbar region; M46.96 Unspecified inflammatory spondylopathy, lumbar region; Z79.899 Other long term (current) drug therapy; Z79.891 Long term (current) use of opiate analgesic; Z87.891 Personal history of nicotine dependence; Z79.82 Long term (current) use of aspirin; Z79.84 Long term (current) use of oral hypoglycemic drugs
CPT/HCPCS: 80307; G0482; G0463; 99211

== ENCOUNTER 2018-12-13 11:50 | Observation (INO) | payer OTHER ==
[2018-12-13] MEDS ORDERED: NITROGLYCERIN OINT 1 INCH/GM PACKET TOPICAL STA (12:15)
[2018-12-13] MEDS ORDERED: ASPIRIN 81 MG PO STA (12:15)
--- NOTE | 2018-12-13 12:15 | ED ---
Chest Pain HPI - General Chief Complaint: Chest Pain Stated Complaint: Chest Pain Time Seen by Provider: 12/13/18 11:59 Source: patient, RN notes reviewed Mode of arrival: ambulatory Limitations: no limitations - History of Present Illness Initial Comments: This is a 50-year-old male with a history of mini strokes history of chronic back pain who presents with complaints of chest pain is started over and hour ago. States was 10/10 severity okay to his mid lower sternum area. He states it was pounding like pain he states is hurts now is about 8/10. Not associated with any shortness of breath fevers chills nausea vomiting or sweats. He did state he had some tingling going down his left arm at the same time. He states he has had pain like this before no prior history of heart disease and is aware of though MD Complaint: chest pain - Related Data Home Medications Medication Instructions Recorded Confirmed Omeprazole 20 mg PO DAILY 02/03/16 12/13/18 Aspirin [Adult Low Dose Aspirin EC] 81 mg PO DAILY 03/20/16 12/13/18 Montelukast [Singulair] 10 mg PO HS 06/29/16 12/13/18 cloNIDine HCL [Catapres] 0.1 mg PO HS 12/19/17 12/13/18 Atorvastatin [Lipitor] 40 mg PO DAILY 07/30/18 12/13/18 Lisinopril-Hctz 20-25 mg 1 tab PO DAILY 10/18/18 12/13/18 [Zestoretic 20-25] Tiotropium [place] [Spiriva 1 spray INHALATION RT-DAILY 10/18/18 12/13/18 Respimat] busPIRone HCL 15 mg PO BID 10/18/18 12/13/18 metFORMIN HCL [Glucophage] 500 mg PO BID 10/18/18 12/13/18 Desvenlafaxine Succinate [Pristiq] 100 mg PO DAILY 12/13/18 12/13/18 Ipratropium-Albuterol Nebulize 3 ml INHALATION RT-TID PRN 12/13/18 12/13/18 [Duoneb 0.5 mg-3 mg/3 ml Soln] Previous Rx's Medication Instructions Recorded Baclofen 10 mg PO BID #60 tablet 04/10/18 Gabapentin [Neurontin] 400 mg PO TID #90 cap 04/10/18 oxyCODONE HCL/ACETAMINOPHEN 1 tab PO Q8HR PRN 30 Days #90 tab 04/10/18 [Percocet 10-325 mg] Allergies Allergy/AdvReac Type Severity Reaction Status Date / Time birds Allergy Severe Wheezing, Uncoded 12/13/18 12:55 SOB steriods Allergy Neck Uncoded 12/13/18 12:55 Swelling, SOB Review of Systems ROS Statement: Those systems with pertinent positive or pertinent negative responses have been documented in the HPI. ROS Other: All systems not noted in ROS Statement are negative. EKG Findings - EKG Results: EKG: interpreted by ERICA, sinus rhythm (Sinus rhythm a 66. Interval 138 QRS duration 70 QT since QTC 400/419 occasional PACs noted.) Past Medical History Past Medical History: Asthma, CVA/TIA, Hyperlipidemia, Hypertension, Pneumonia Additional Past Medical History / Comment(s): Back pain-LUMBAR, vertigo, STROKES BEHIND THE EYES,. difficulty swallowing. History of Any Multi-Drug Resistant Organisms: None Reported Past Surgical History: Appendectomy, Hernia Repair, Orthopedic Surgery Additional Past Surgical History / Comment(s): RT INGUINAL HERNIA , RT ROTATOR CUFF SX, Pain procedures. Past Anesthesia/Blood Transfusion Reactions: No Reported Reaction Past Psychological History: Anxiety, Depression Smoking Status: Former smoker Past Alcohol Use History: None Reported Past Drug Use History: None Reported - Past Family History Father Family Medical History: Cancer Mother Family Medical History: Hypertension General Exam - General Exam Comments Initial Comments: This is a well-developed well-nourished awake alert oriented times 3 male Limitations: no limitations General appearance: alert, in no apparent distress Head exam: Present: atraumatic, normocephalic, normal inspection Eye exam: Present: normal appearance, PERRL, EOMI. Absent: scleral icterus, conjunctival injection, periorbital swelling ENT exam: Present: normal exam, mucous membranes moist Neck exam: Present: normal inspection. Absent: tenderness, meningismus, lymphadenopathy Respiratory exam: Present: normal lung sounds bilaterally. Absent: respiratory distress, wheezes, rales, rhonchi, stridor Cardiovascular Exam: Present: regular rate, normal rhythm, normal heart sounds. Absent: systolic murmur, diastolic murmur, rubs, gallop, clicks GI/Abdominal exam: Present: soft, normal bowel sounds. Absent: distended, tenderness, guarding, rebound, rigid Extremities exam: Present: normal inspection, full ROM, normal capillary refill. Absent: tenderness, pedal edema, joint swelling, calf tenderness Back exam: Present: normal inspection Neurological exam: Present: alert, oriented X3, CN II-XII intact Psychiatric exam: Present: normal affect, normal mood Skin exam: Present: warm, dry, intact, normal color. Absent: rash Course Vital Signs 12/13/18 11:54 Temperature 97.8 F Pulse Rate 64 Respiratory 18 Rate Blood Pressure 132/80 O2 Sat by Pulse 99 Oximetry Chest Pain MDM - MDM The patient demonstrates evidence of pancreatitis chest pain she has improved also. He will be admitted I did discuss case with Dr. Woods. At the time the lipase level is unknown. Patient will get an ultrasound in addition to cardiology evaluation and GI consultation. Disposition Clinical Impression: Acute pancreatitis, Chest pain Disposition: ADMITTED IP TO THIS [facility] Condition: Stable Referrals: Fabiana Monroy MD [Primary Care Provider] - 1-2 days
[2018-12-13 12:41] LABS: Anisocytosis Slight; Basophils % (A) 1 %; Eosinophils # (A) 0.2 k/uL (0-0.7); Eosinophils % (A) 2 %; HCT 39.9 % (39.0-53.0); HGB 12.6 gm/dL (13.0-17.5); Lymphocytes # (A) 2.5 k/uL (1.0-4.8); Lymphocytes % (A) 31 %; MCH 29.1 pg (25.0-35.0); MCHC 31.7 g/dL (31.0-37.0); MCV 91.8 fL (80.0-100.0); Monocytes # (A) 0.7 k/uL (0-1.0); Monocytes % (A) 9 %; Neutrophils # (A) 4.3 k/uL (1.3-7.7); Neutrophils % (A) 54 %; Platelet Count 269 k/uL (150-450); RBC 4.34 m/uL (4.30-5.90); RDW 16.2 % (11.5-15.5)
[2018-12-13 12:52] LABS: ALT 35 U/L (21-72); AST 31 U/L (17-59); African American GFR (CKD) >90 (>60 ml/min/1.73 sqM); Alkaline Phosphatase 93 U/L (38-126); Anion Gap 9 mmol/L; Blood Urea Nitrogen 18 mg/dL (9-20); Calcium 9.8 mg/dL (8.4-10.2); Carbon Dioxide 24 mmol/L (22-30); Chloride 108 mmol/L (98-107); Glucose 96 mg/dL (74-99); Magnesium 1.7 mg/dL (1.6-2.3); Potassium 4.4 mmol/L (3.5-5.1); Sodium 141 mmol/L (137-145); Total Bilirubin 0.4 mg/dL (0.2-1.3); Total Protein 6.8 g/dL (6.3-8.2)
--- NOTE | 2018-12-13 13:00 | XR ---
EXAMINATION TYPE: XR chest 2V DATE OF EXAM: 12/13/2018 COMPARISON: 10/18/2018 TECHNIQUE: PA and lateral views submitted. HISTORY: Chest pain FINDINGS: The lungs are clear and there is no pneumothorax, pleural effusion, or focal pneumonia. Heart is en larged. Subsegmental changes at both lung bases. Arthropathy of the shoulders. Limited inspiration. H ypertrophic change of the spine. IMPRESSION: 1. Cardiomegaly with basilar atelectasis favored over pneumonia. Correlate clinically..
[2018-12-13 13:03] LABS: D-Dimer 0.35 mg/L FEU (<0.60); INR 0.9 (<1.2)
[2018-12-13 13:05] LABS: Partial Thromboplastin Time 21.2 sec (22.0-30.0)
[2018-12-13] MEDS ORDERED: NITROGLYCERIN SL TABS 0.4 MG TAB SUBLINGUAL PRN (13:57)
--- NOTE | 2018-12-13 16:24 | P.HPIM ---
History of Present Illness This 50-year-old male came in with complaints of chest pain in the retrosternal area with numbness in the right arm about 10/10 in severity nonradiating and nonexertional not associated with the breathing is nausea denied any vomiting denied any diaphoresis denied any lightheadedness associated with that patient does have tingling in the left arm. Patient's symptoms resolved on his way here from [place]. Patient the denied any history of coronary artery disease does have history of TIAs in the past it appears to be mostly heatstroke rather than actual TIA or stroke. Never had any real stroke patient is supposed to get a st ress test as an outpatient about a month. Patient denied any cough fever chills patient and nausea vomiting. EKG did not show any ST-T wave changes troponins are negative. Also company of shortness of breath chest x-ray within normal limits physical exam findings chest exam no wheezing was appreciated no crackles were appreciated Review of Systems REVIEW OF SYSTEMS: CONSTITUTIONAL: No fever, no malaise, no fatigue. HEENT: No recent visual problems or hearing problems. Denied any sore throat. CARDIOVASCULAR: No orthopnea, PND, no palpitations, no syncope. PULMONARY: No shortness of breath, no cough, no hemoptysis. GASTROINTESTINAL: No diarrhea, no nausea, no vomiting, no abdominal pain. NEUROLOGICAL: No headaches, no weakness, no numbness. HEMATOLOGICAL: Denies any bleeding or petechiae. GENITOURINARY: Denies any burning micturition, frequency, or urgency. MUSCULOSKELETAL/RHEUMATOLOGICAL: Denies any joint pain, swelling, or any muscle pain. ENDOCRINE: Denies any polyuria or polydipsia. The rest of the 14-point review of systems is negative. Past Medical History Past Medical History: Asthma, CVA/TIA, Hyperlipidemia, Hypertension, Pneumonia Additional Past Medical History / Comment(s): Back pain-LUMBAR, vertigo, STROKES BEHIND THE EYES,. difficulty swallowing. History of Any Multi-Drug Resistant Organisms: None Reported Past Surgical History: Appendectomy, Hernia Repair, Orthopedic Surgery Additional Past Surgical History / Comment(s): RT INGUINAL HERNIA , RT ROTATOR CUFF SX, Pain procedures. Past Anesthesia/Blood Transfusion Reactions: No Reported Reaction Past Psychological History: Anxiety, Depression Smoking Status: Former smoker Past Alcohol Use History: None Reported Past Drug Use History: None Reported - Past Family History Father Family Medical History: Cancer Mother Family Medical History: Hypertension Medications and Allergies Home Medications Medication Instructions Recorded Confirmed Type Omeprazole 20 mg PO DAILY 02/03/16 12/13/18 History Aspirin [Adult Low Dose Aspirin EC] 81 mg PO DAILY 03/20/16 12/13/18 History Montelukast [Singulair] 10 mg PO HS 06/29/16 12/13/18 History cloNIDine HCL [Catapres] 0.1 mg PO HS 12/19/17 12/13/18 History Baclofen 10 mg PO BID #60 tablet 04/10/18 12/13/18 Rx Gabapentin [Neurontin] 400 mg PO TID #90 cap 04/10/18 12/13/18 Rx oxyCODONE HCL/ACETAMINOPHEN 1 tab PO Q8HR PRN 30 Days #90 tab 04/10/18 12/13/18 Rx [Percocet 10-325 mg] Atorvastatin [Lipitor] 40 mg PO DAILY 07/30/18 12/13/18 History Lisinopril-Hctz 20-25 mg 1 tab PO DAILY 10/18/18 12/13/18 History [Zestoretic 20-25] Tiotropium [place] [Spiriva 1 spray INHALATION RT-DAILY 10/18/18 12/13/18 History Respimat] busPIRone HCL 15 mg PO BID 10/18/18 12/13/18 History metFORMIN HCL [Glucophage] 500 mg PO BID 10/18/18 12/13/18 History Desvenlafaxine Succinate [Pristiq] 100 mg PO DAILY 12/13/18 12/13/18 History Ipratropium-Albuterol Nebulize 3 ml INHALATION RT-TID PRN 12/13/18 12/13/18 History [Duoneb 0.5 mg-3 mg/3 ml Soln] Allergies Allergy/AdvReac Type Severity Reaction Status Date / Time birds Allergy Severe Wheezing, Uncoded 12/13/18 12:55 SOB steriods Allergy Neck Uncoded 12/13/18 12:55 Swelling, SOB Physical Exam Vitals: Vital Signs Temp Pulse Resp BP Pulse Ox 12/13/18 11:54 97.8 F 64 18 132/80 99 Intake and Output 12/13/18 12/13/18 12/13/18 06:59 14:59 22:59 Other: Weight 101.605 kg PHYSICAL EXAMINATION: GENERAL: The patient is alert and oriented x3, not in any acute distress. Well developed, well nourished. HEENT: Pupils are round and equally reacting to light. EOMI. No scleral icterus. No conjunctival pallor. Normocephalic, atraumatic. No pharyngeal erythema. No thyromegaly. CARDIOVASCULAR: S1 and S2 present. No murmurs, rubs, or gallops. PULMONARY: Chest is clear to auscultation, no wheezing or crackles. ABDOMEN: Soft, nontender, nondistended, normoactive bowel sounds. No palpable organomegaly. MUSCULOSKELETAL: No joint swelling or deformity. EXTREMITIES: No cyanosis, clubbing, or pedal edema. NEUROLOGICAL: Gross neurological examination did not reveal any focal deficits. SKIN: No rashes. Results CBC & Chem 7: 12/13/18 12:20 12/13/18 12:20 Labs: Abnormal Lab Results - Last 24 Hours (Table) 12/13/18 12/13/18 12/13/18 Range/Units 12:20 12:20 12:20 Hgb 12.6 L (13.0-17.5) gm/dL RDW 16.2 H (11.5-15.5) % APTT 21.2 L (22.0-30.0) sec Chloride 108 H (98-107) mmol/L Lipase 1000 H (23-300) U/L Assessment and Plan Plan: -Chest pain: We will rule out acute coronary syndromes and unstable angina cardiology will evaluate the patient. Patient has mild elevation of lipase patient's symptomatology is not consistent with pancreatitis anyways patient will be kept nothing by mouth until tomorrow morning we'll start him on diet morning. Patient -Nonspecific elevation of lipase do not believe patient has pancreatitis at this time, d-dimer is negative. -Obesity -Hyperlipidemia Hypertension Diabetic peripheral neuropathy -Depression For above-mentioned chronic medical problems patient will be resumed on appropriate home medications
[2018-12-13] MEDS: SODIUM CHLORIDE 0.9% 1,000 ML IV SCH (18:19)
[2018-12-13 18:30] VITALS: BMI 30.4
[2018-12-13 18:46] LABS: Glucose,Whole Blood 89 mg/dL (75-99)
[2018-12-13] MEDS: oxyCODONE-APAP 10-325MG 1 EACH TAB PO PRN (18:48)
[2018-12-13] MEDS: GABAPENTIN 400 MG CAP PO SCH ×2 (18:49→22:34)
[2018-12-13] MEDS: busPIRone HCl 10 MG TAB PO SCH (20:40)
[2018-12-13] MEDS: BACLOFEN 10 MG TAB PO SCH (20:40)
[2018-12-13] MEDS: IPRATROPIUM 0.5 MG/2.5 ML NEBU INHALATION SCH ×2 (20:42→20:43)
[2018-12-13] MEDS: IPRATROPIUM-ALBUTEROL 3 ML NEB INHALATION PRN (20:45)
[2018-12-13] MEDS ORDERED: MONTELUKAST 10 MG TAB PO SCH (21:00)
[2018-12-13] MEDS ORDERED: cloNIDine HCL 0.1 MG TAB PO SCH (21:00)
[2018-12-13 21:02] LABS: Glucose,Whole Blood 90 mg/dL (75-99)
[2018-12-13] MEDS: metFORMIN 500 MG TAB PO SCH (21:23)
[2018-12-14] MEDS: NITROGLYCERIN OINT 1 INCH/GM PACKET TOPICAL SCH ×3 (00:20→11:24)
[2018-12-14] MEDS: SODIUM CHLORIDE 0.9% 1,000 ML IV SCH ×2 (00:21→09:39)
[2018-12-14 02:53] LABS: Cholesterol 125 mg/dL (<200); HDL Cholesterol 44 mg/dL (40-60); LDL Cholesterol,Calculated 25 mg/dL (0-99); Triglycerides 281 mg/dL (<150)
[2018-12-14] MEDS: FLUTICASONE 50MCG/SPRAY NASAL 16GM EA NOSTRIL PRN ×2 (06:11→09:38)
[2018-12-14] MEDS: oxyCODONE-APAP 10-325MG 1 EACH TAB PO PRN (06:17)
[2018-12-14 06:37] LABS: Glucose,Whole Blood 112 mg/dL (75-99)
[2018-12-14] MEDS: IPRATROPIUM-ALBUTEROL 3 ML NEB INHALATION PRN ×2 (06:50→11:02)
[2018-12-14 06:56] LABS: Anisocytosis Slight; Basophils # (A) 0.1 k/uL (0-0.2); Basophils % (A) 1 %; Eosinophils # (A) 0.2 k/uL (0-0.7); Eosinophils % (A) 2 %; HCT 38.5 % (39.0-53.0); HGB 12.4 gm/dL (13.0-17.5); Lymphocytes % (A) 31 %; MCH 30.1 pg (25.0-35.0); MCHC 32.1 g/dL (31.0-37.0); MCV 93.6 fL (80.0-100.0); Mean Platelet Volume 8.3; Monocytes # (A) 0.7 k/uL (0-1.0); Monocytes % (A) 7 %; Neutrophils # (A) 5.5 k/uL (1.3-7.7); Neutrophils % (A) 57 %; Platelet Count 270 k/uL (150-450); RBC 4.12 m/uL (4.30-5.90); WBC 9.7 k/uL (3.8-10.6)
[2018-12-14 07:13] LABS: African American GFR (CKD) >90 (>60 ml/min/1.73 sqM); Anion Gap 6 mmol/L; Blood Urea Nitrogen 16 mg/dL (9-20); Calcium 9.1 mg/dL (8.4-10.2); Carbon Dioxide 29 mmol/L (22-30); Chloride 107 mmol/L (98-107); Glucose 92 mg/dL (74-99); Potassium 4.2 mmol/L (3.5-5.1); Sodium 142 mmol/L (137-145)
[2018-12-14] MEDS ORDERED: PANTOPRAZOLE 40 MG TABLET PO SCH (07:30)
[2018-12-14 08:02] VITALS: RESP 18
[2018-12-14] MEDS ORDERED: ATORVASTATIN 40 MG TAB PO SCH (09:00)
[2018-12-14] MEDS ORDERED: ASPIRIN 325 MG TAB PO SCH (09:00)
[2018-12-14] MEDS ORDERED: DESVENLAFAXINE SUCCINATE 50 MG TAB.ER.24H PO SCH (09:00)
[2018-12-14] MEDS ORDERED: LISINOPRIL-HCTZ 20-25 MG 1 EACH TAB PO SCH (09:00)
[2018-12-14] MEDS: metFORMIN 500 MG TAB PO SCH ×2 (09:30→17:04)
[2018-12-14] MEDS: GABAPENTIN 400 MG CAP PO SCH ×2 (09:36→15:57)
[2018-12-14] MEDS: busPIRone HCl 10 MG TAB PO SCH (09:36)
[2018-12-14] MEDS: BACLOFEN 10 MG TAB PO SCH (09:36)
[2018-12-14 12:09] LABS: Glucose,Whole Blood 98 mg/dL (75-99)
[2018-12-14] MEDS: INSULIN ASPART (NovoLOG) 100 UNIT/ML VIAL SQ SCH ×2 (12:28→17:05)
--- NOTE | 2018-12-14 12:41 | P.DS ---
Providers Date of admission: 12/13/18 13:57 Attending physician: Kenzie Woods Consults: 12/13/18 13:57 Consult Physician Routine Consulting Provider: Alma Rosa Verma Consult Reason/Comments: Pancreatitis Do you want consulting provider notified?: Yes Consult Physician Urgent Consulting Provider: Adolfo Duenas Consult Reason/Comments: Atypical chest pain Do you want consulting provider notified?: Yes Primary care physician: Fabiana Monroy Hospital Course: 58-year-old male was admitted for chest pain rule out a concurrent syndromes cardio evaluated the patient patient had no outpatient stress continued in the recommending patient to follow-up as outpatient for stress test. Patient had elevated lipase although he doesn't have difficulty in symptoms of pancreatitis and unsure whether he has pancreatitis are not anyways patient was nothing by mouth with improved symptoms and the patient will be started on diet advance her test as tolerated and the if patient tolerates a diet will will be discharged today. Patient does have gastroparesis for which he uses Reglan at home PHYSICAL EXAMINATION: GENERAL: The patient is alert and oriented x3, not in any acute distress. Well developed, well nourished. HEENT: Pupils are round and equally reacting to light. EOMI. No scleral icterus. No conjunctival pallor. Normocephalic, atraumatic. No pharyngeal erythema. No thyromegaly. CARDIOVASCULAR: S1 and S2 present. No murmurs, rubs, or gallops. PULMONARY: Chest is clear to auscultation, no wheezing or crackles. ABDOMEN: Soft, nontender, nondistended, normoactive bowel sounds. No palpable organomegaly. MUSCULOSKELETAL: No joint swelling or deformity. EXTREMITIES: No cyanosis, clubbing, or pedal edema. NEUROLOGICAL: Gross neurological examination did not reveal any focal deficits. SKIN: No rashes. Please refer to my HPI from yesterday for further details of hospitalization course other medical problems that were addressed. Patient Condition at Discharge: Stable Plan - Discharge Summary Discharge Rx Participant: Yes New Discharge Prescriptions: No Action Omeprazole 20 mg PO DAILY Aspirin [Adult Low Dose Aspirin EC] 81 mg PO DAILY Montelukast [Singulair] 10 mg PO HS cloNIDine HCL [Catapres] 0.1 mg PO HS oxyCODONE HCL/ACETAMINOPHEN [Percocet 10-325 mg] 1 tab PO Q8HR PRN 30 Days #90 tab PRN Reason: Pain Baclofen 10 mg PO BID #60 tablet Gabapentin [Neurontin] 400 mg PO TID #90 cap Atorvastatin [Lipitor] 40 mg PO DAILY metFORMIN HCL [Glucophage] 500 mg PO BID Tiotropium [place] [Spiriva Respimat] 1 spray INHALATION RT-DAILY Lisinopril-Hctz 20-25 mg [Zestoretic 20-25] 1 tab PO DAILY busPIRone HCL 15 mg PO BID Ipratropium-Albuterol Nebulize [Duoneb 0.5 mg-3 mg/3 ml Soln] 3 ml INHALATION RT-TID PRN PRN Reason: Shortness Of Breath Desvenlafaxine Succinate [Pristiq] 100 mg PO DAILY Discharge Medication List Omeprazole 20 mg PO DAILY 02/03/16 [History] Aspirin [Adult Low Dose Aspirin EC] 81 mg PO DAILY 03/20/16 [History] Montelukast [Singulair] 10 mg PO HS 06/29/16 [History] cloNIDine HCL [Catapres] 0.1 mg PO HS 12/19/17 [History] Baclofen 10 mg PO BID #60 tablet 04/10/18 [Rx] Gabapentin [Neurontin] 400 mg PO TID #90 cap 04/10/18 [Rx] oxyCODONE HCL/ACETAMINOPHEN [Percocet 10-325 mg] 1 tab PO Q8HR PRN 30 Days #90 tab 04/10/18 [Rx] Atorvastatin [Lipitor] 40 mg PO DAILY 07/30/18 [History] Lisinopril-Hctz 20-25 mg [Zestoretic 20-25] 1 tab PO DAILY 10/18/18 [History] Tiotropium [place] [Spiriva Respimat] 1 spray INHALATION RT-DAILY 10/18/18 [History] busPIRone HCL 15 mg PO BID 10/18/18 [History] metFORMIN HCL [Glucophage] 500 mg PO BID 10/18/18 [History] Desvenlafaxine Succinate [Pristiq] 100 mg PO DAILY 12/13/18 [History] Ipratropium-Albuterol Nebulize [Duoneb 0.5 mg-3 mg/3 ml Soln] 3 ml INHALATION RT-TID PRN 12/13/18 [History] Follow up Appointment(s)/Referral(s): Fabinaa Monroy MD [Primary Care Provider] - 1-2 days
--- NOTE | 2018-12-14 14:53 | P.CRDCN ---
History of Present Illness History of present illness: This is a pleasant 58-year-old male past medical history significant for hypertension, dyslipidemia and asthma. He follows in the office with Dr. Almonte. We have been asked to see him in consultation secondary to chest pain. He states he recently underwent circumcision surgery appear. He was in the office for his 3 month follow up yesterday and he mentioned to the urologist that he had symptoms of chest discomfort. He was sent to the hospital for further evaluation. The patient describes a discomfort in the right anterior chest that radiates up from the abdomen that has been intermittent and ongoing for the previous one year. He has seen Dr. Almonte in the office and discuss the chest discomfort and is scheduled for an outpatient stress test next week. He is seen and examined resting comfortably in bed in no acute distress. He denies active chest discomfort at this time. He does have some abdominal discomfort in the upper portion as well as the right upper quadrant/flank. EKG reveals sinus rhythm with no acute ST or T wave abnormalities noted with PACs. Chest x-ray reveals cardiomegaly with basilar atelectasis. Patient states he had pneumonia as a teenager and was told that because scarring damage to his lung bases. Laboratory data reviewed, WBC 9.7, hemoglobin 12.4, platelets 270, sodium 142, potassium 4.2, creatinine 0.83, cardiac enzymes negative 3, LDL 25 and lipase 1000. Current cardiac medications include atorvastatin 40 mg daily, aspirin 81 mg daily, Zestoretic 20/25 mg daily and clonidine 0.1 mg at bedtime. Most recent echocardiogram obtained September 2018 reveals preserved LV systolic function with ejection fraction 60-65%. At the time of my exam: CONSTITUTIONAL: Denies fever. Denies chills. EYES: Denies blurred vision. Denies vision changes. Denies eye pain. EARS, NOSE, MOUTH & THROAT: Denies headache. Denies sore throat. Denies ear pain. CARDIOVASCULAR: Denies chest pain. Denies shortness of breath. Denies orthopnea. Denies PND. Denies palpitations. RESPIRATORY: Denies cough. GASTROINTESTINAL: Complains of abdominal pain. Denies diarrhea. Denies constipation. Denies nausea. Denies vomiting. MUSCULOSKELETAL: Denies myalgias. INTEGUMENTARY: Denies pruitis. Denies rash. NEUROLOGIC: Denies numbness. Denies tingling. Denies weakness. PSYCHIATRIC: Denies anxiety. Denies depression. ENDOCRINE: Denies fatigue. Denies weight change. Denies polydipsia. Denies polyurina. GENITOURINARY: Denies burning, hematuria or urgency with micturation. HEMATOLOGIC: Denies history of anemia. Denies bleeding. Blood pressure 114/76 heart rate 70 afebrile maintaining oxygen saturation on room air GENERAL: This is a 58-year-old male in no apparent distress at the time of my examination. HEENT: Head is atraumatic, normocephalic. Pupils are equal, round. Sclerae anicteric. Conjunctivae are clear. Mucous membranes of the mouth are moist. Neck is supple. There is no jugular venous distention. No carotid bruit is heard. LUNGS: Clear to auscultation no wheezes, rales or rhonchi. No chest wall tenderness is noted on palpation or with deep breathing. HEART: Regular rate and rhythm without murmurs, rubs or gallops. S1 and S2 hea rd. ABDOMEN: Soft, nontender, mild discomfort on palpation to the upper quadrants worse on the right. Bowel sounds are heard. No organomegaly noted. EXTREMITIES: No evidence of peripheral edema and no calf tenderness noted. VASCULAR: Radial and dorsalis pedis pulses palpated, no evidence of clubbing. NEUROLOGIC: Patient is awake, alert and oriented x3. ASSESSMENT Chest pain, atypical for angina. Has been going on intermittently for the previous one year. No EKG evidence of ischemia and negative cardiac enzymes. Elevated lipase with abdominal discomfort suggestive of pancreatitis Hypertension Dyslipidemia Asthma PLAN An acute coronary event has been ruled out. Stable for discharge from a cardiac perspective, follow-up in the office for previously scheduled stress test. Thank you kindly for this consultation. Nurse Practitioner note has been reviewed, I agree with a documented findings and plan of care. Patient was seen and examined. Past Medical History Past Medical History: Asthma, CVA/TIA, Hyperlipidemia, Hypertension, Pneumonia Additional Past Medical History / Comment(s): Back pain-LUMBAR, vertigo, STROKES BEHIND THE EYES,. difficulty swallowing. History of Any Multi-Drug Resistant Organisms: None Reported Past Surgical History: Appendectomy, Hernia Repair, Orthopedic Surgery Additional Past Surgical History / Comment(s): RT INGUINAL HERNIA INFANT, RT ROTATOR CUFF SX, Pain procedures. circumcision september 2018 Past Anesthesia/Blood Transfusion Reactions: No Reported Reaction Past Psychological History: Anxiety, Depression Additional Psychological History / Comment(s): . Smoking Status: Former smoker Past Alcohol Use History: None Reported Additional Past Alcohol Use History / Comment(s): STARTED SMOKING AT AGE 18 SMOKED 1PPD, Quit Smoking 05/11. Past Drug Use History: None Reported Additional Drug Use History / Comment(s): . - Past Family History Father Family Medical History: Cancer Mother Family Medical History: Hypertension Medications and Allergies Home Medications Medication Instructions Recorded Confirmed Type Omeprazole 20 mg PO DAILY 02/03/16 12/13/18 History Aspirin [Adult Low Dose Aspirin EC] 81 mg PO DAILY 03/20/16 12/13/18 History Montelukast [Singulair] 10 mg PO HS 06/29/16 12/13/18 History cloNIDine HCL [Catapres] 0.1 mg PO HS 12/19/17 12/13/18 History Baclofen 10 mg PO BID #60 tablet 04/10/18 12/13/18 Rx Gabapentin [Neurontin] 400 mg PO TID #90 cap 04/10/18 12/13/18 Rx oxyCODONE HCL/ACETAMINOPHEN 1 tab PO Q8HR PRN 30 Days #90 tab 04/10/18 12/13/18 Rx [Percocet 10-325 mg] Atorvastatin [Lipitor] 40 mg PO DAILY 07/30/18 12/13/18 History Lisinopril-Hctz 20-25 mg 1 tab PO DAILY 10/18/18 12/13/18 History [Zestoretic 20-25] Tiotropium Kulm [Spiriva 1 spray INHALATION RT-DAILY 10/18/18 12/13/18 History Respimat] busPIRone HCL 15 mg PO BID 10/18/18 12/13/18 History metFORMIN HCL [Glucophage] 500 mg PO BID 10/18/18 12/13/18 History Desvenlafaxine Succinate [Pristiq] 100 mg PO DAILY 12/13/18 12/13/18 History Ipratropium-Albuterol Nebulize 3 ml INHALATION RT-TID PRN 12/13/18 12/13/18 History [Duoneb 0.5 mg-3 mg/3 ml Soln] Allergies Allergy/AdvReac Type Severity Reaction Status Date / Time birds Allergy Severe Wheezing, Uncoded 12/13/18 12:55 SOB steriods Allergy Neck Uncoded 12/13/18 12:55 Swelling, SOB Physical Exam Vitals: Vital Signs Temp Pulse Pulse Resp BP BP Pulse Ox 12/14/18 07:50 97.8 F 70 18 114/76 96 12/14/18 06:59 66 12/14/18 06:50 68 12/14/18 03:28 68 17 12/14/18 03:27 98.9 F 68 17 145/67 95 12/13/18 23:13 67 17 12/13/18 23:11 67 17 130/67 100 12/13/18 20:54 64 12/13/18 20:47 60 12 12/13/18 20:00 99.1 F 67 17 127/74 12/13/18 16:53 98 18 124/87 99 12/13/18 11:54 97.8 F 64 18 132/80 99 Intake and Output 12/13/18 12/14/18 12/14/18 22:59 06:59 14:59 Intake Total 622 1600 Balance 622 1600 Intake: Intake, IV Titration 1200 Amount Sodium Chloride 0.9% 1, 1200 000 ml @ 100 mls/hr IV . Q10H [facility] Rx#:[id number] Oral 622 400 Other: Voiding Method Toilet Toilet # Voids 1 2 Weight 102.2 kg Results 12/14/18 06:02 12/14/18 06:02 Cardiac Enzymes 12/13/18 12/13/18 12/13/18 Range/Units 12:20 12:20 18:15 AST 31 (17-59) U/L Troponin I <0.012 <0.012 (0.000-0.034) ng/mL 12/14/18 Range/Units 00:17 AST (17-59) U/L Troponin I <0.012 (0.000-0.034) ng/mL Coagulation 12/13/18 Range/Units 12:20 PT 10.0 (9.0-12.0) sec APTT 21.2 L (22.0-30.0) sec Lipids 12/13/18 Range/Units 12:52 Triglycerides 281 H (<150) mg/dL Cholesterol 125 (<200) mg/dL HDL Cholesterol 44 (40-60) mg/dL CBC 12/13/18 12/14/18 Range/Units 12:20 06:02 WBC 8.0 9.7 (3.8-10.6) k/uL RBC 4.34 4.12 L (4.30-5.90) m/uL Hgb 12.6 L 12.4 L (13.0-17.5) gm/dL Hct 39.9 38.5 L (39.0-53.0) % Plt Count 269 270 (150-450) k/uL Comprehensive Metabolic Panel 12/13/18 12/14/18 Range/Units 12:20 06:02 Sodium 141 142 (137-145) mmol/L Potassium 4.4 4.2 (3.5-5.1) mmol/L Chloride 108 H 107 (98-107) mmol/L Carbon Dioxide 24 29 (22-30) mmol/L BUN 18 16 (9-20) mg/dL Creatinine 0.82 0.83 (0.66-1.25) mg/dL Glucose 96 92 (74-99) mg/dL Calcium 9.8 9.1 (8.4-10.2) mg/dL AST 31 (17-59) U/L ALT 35 (21-72) U/L Alkaline Phosphatase 93 (38-126) U/L Total Protein 6.8 (6.3-8.2) g/dL Albumin 4.0 (3.5-5.0) g/dL Current Medications Generic Name Dose Route Start Last Admin Trade Name Freq PRN Reason Stop Dose Admin Albuterol/Ipratropium 3 ml 12/13/18 14:00 12/14/18 06:50 Duoneb 0.5 Mg-3 Mg/3 Ml Soln INHALATION 3 ml RT-TID PRN Administration Shortness Of Breath Aspirin 325 mg 12/14/18 09:00 12/14/18 09:36 Aspirin PO 325 mg DAILY [facility] Administration Atorvastatin Calcium 40 mg 12/14/18 09:00 12/14/18 09:36 Lipitor PO 40 mg DAILY FRITZ Administration Baclofen 10 mg 12/13/18 21:00 12/14/18 09:36 Lioresal PO 10 mg BID FRITZ Administration Buspirone HCl 15 mg 12/13/18 21:00 12/14/18 09:36 Buspar PO 15 mg BID FRITZ Administration Desvenlafaxine Succinate 100 mg 12/14/18 09:00 12/14/18 09:36 Pristiq Er PO 100 mg DAILY FRITZ Administration Fluticasone Propionate 2 spray 12/14/18 05:45 12/14/18 09:38 Flonase Nasal [place] EA NOSTRIL 2 spray DAILY PRN Administration Congestion Gabapentin 400 mg 12/13/18 16:00 12/14/18 09:36 Neurontin PO 400 mg TID FR[facility]Z Administration Lisinopril/HCTZ 1 each 12/14/18 09:00 12/14/18 09:36 Zestoretic 20-25 PO 1 each DAILY [facility] Administration Sodium Chloride 1,000 mls @ 100 mls/hr 12/13/18 14:00 12/14/18 09:39 Saline 0.9% IV 100 mls/hr .Q10H [facility] Administration Ipratropium Kulm 0.5 mg 12/14/18 08:00 12/13/18 20:43 Atrovent Nebulized INHALATION 0.5 mg RT-QID [facility] Administration Metformin HCl 500 mg 12/13/18 17:30 12/14/18 09:30 Glucophage PO Not Given BID-W/MEALS [facility] Montelukast Sodium 10 mg 12/13/18 21:00 12/13/18 20:40 Singulair PO 10 mg HS FR[facility]Z Administration Nitroglycerin 0.4 mg 12/13/18 13:57 Nitrostat SUBLINGUAL Q5M PRN Chest Pain Nitroglycerin 1 inch 12/14/18 00:00 12/14/18 06:11 Nitro-Bid Oint TOPICAL 1 inch Q6HR [facility] Administration Oxycodone/Acetaminophen 1 each 12/13/18 14:00 12/14/18 06:17 Percocet 10-325 PO 1 each Q8HR PRN Administration Pain Pantoprazole Sodium 40 mg 12/14/18 07:30 12/14/18 06:11 Protonix PO 40 mg [id number] FRITZ Administration Intake and Output 12/13/18 12/14/18 12/14/18 22:59 06:59 14:59 Intake Total 622 1600 Balance 622 1600 Intake: Intake, IV Titration 1200 Amount Sodium Chloride 0.9% 1, 1200 000 ml @ 100 mls/hr IV . Q10H [facility] Rx#:[id number] Oral 622 400 Other: Voiding Method Toilet Toilet # Voids 1 2 Weight 102.2 kg 12/14/18 06:02 12/14/18 06:02
[2018-12-14] MEDS: IPRATROPIUM 0.5 MG/2.5 ML NEBU INHALATION SCH (16:21)
[2018-12-14 17:02] LABS: Glucose,Whole Blood 88 mg/dL (75-99)
[2018-12-14] MEDS ORDERED: METOCLOPRAMIDE 5 MG TAB PO SCH (17:30)
[2018-12-14 17:40] VITALS: BP 114/67; PULSE 75; TEMP 98.3
--- NOTE | 2018-12-23 15:11 | CDI ---
Documentation Clarification Form Date: 12/23/18 From: GENEVIEVE Bernardo Phone: If you have question, contact Rupal Doshi at [phone] M-F 8:30 am to 6pm Admit Date: 12/13/2018 1:57:00 PM Patient Name: Ferny Tellez Visit Number: [id number] Discharge Date: 12/14/2018 6:22:00 PM ATTENTION: The Clinical Documentation Specialists (CDI) and [facility] Coding Staff appreciate your assistance in clarifying documentation. Please respond to the clarification below the line at the bottom and electronically sign. The CDI & [facility] Coding staff will review the response and follow-up if needed. Please note: Queries are made part of the Legal Health Record. If you have any questions, please contact the author of this message via ITS. Dr. Kenzie Woods Patient presented with complaints of chest pain in the retrosternal area. ED note: The patient demonstrates evidence of pancreatitis, chest pain has improved also. Clinical impression: acute pancreatitis. Chest pain. Patient was treated with fluids and NPO. Per cardiology consult chest pain, atypical for angina and elevated lipase with abdominal discomfort suggestive of pancreatitis Discharge summary states patient had elevated lipase although he doesnt have difficulty in symptoms of pancreatitis and unsure whether he has pancreatitis. In your professional opinion, can you clarify the pancreatitis, if known? Acute pancreatitis, ruled in Acute pancreatitis, ruled out Other, please specify Unable to determine Appropriate documentation as per my was dictated in my note. HEDYD
== END 2018-12-14 18:22 | disposition home or self-care (01) ==
LOC: EC 11:50 → INTOOBSV 13:57 → 3SCARD 13:57 → UNDODISIN 12-14 18:22
PROVIDERS: ADMIT Internal Medicine; ATTEND Internal Medicine
DX: R07.89 Other chest pain (principal); R20.0 Anesthesia of skin; R20.2 Paresthesia of skin; R74.8 Abnormal levels of other serum enzymes; E11.42 Type 2 diabetes mellitus with diabetic polyneuropathy; E11.43 Type 2 diabetes mellitus with diabetic autonomic (poly)neuropathy; K31.84 Gastroparesis; J45.909 Unspecified asthma, uncomplicated; I10 Essential (primary) hypertension; E78.5 Hyperlipidemia, unspecified; E66.9 Obesity, unspecified; Z68.30 Body mass index [BMI] 30.0-30.9, adult; F32.9 Major depressive disorder, single episode, unspecified; F41.9 Anxiety disorder, unspecified; G89.29 Other chronic pain; M54.5 Low back pain; R13.10 Dysphagia, unspecified; Z88.8 Allergy status to other drugs, medicaments and biological substances; Z79.82 Long term (current) use of aspirin; Z79.891 Long term (current) use of opiate analgesic; Z79.84 Long term (current) use of oral hypoglycemic drugs; Z79.899 Other long term (current) drug therapy; Z86.73 Personal history of transient ischemic attack (TIA), and cerebral infarction without residual deficits; Z87.01 Personal history of pneumonia (recurrent); Z87.891 Personal history of nicotine dependence; Z82.49 Family history of ischemic heart disease and other diseases of the circulatory system; Z80.9 Family history of malignant neoplasm, unspecified
CPT/HCPCS: 99285; 36415; 94640 ×3; 93005; 85379; 80061; 80053; 80048; 83690; 83735; 84484 ×2; 85025 ×2; 85610; 85730; 71046; G0378 ×2

== ENCOUNTER → 2019-01-13 | Outpatient (CLI) | payer OTHER ==
[2019-01-13 14:34] VITALS: BP 127/84; PULSE 66; RESP 16
--- NOTE | 2019-01-13 16:02 | P.PAINPG ---
Subjective Progress Note Date: 01/13/19 This is a 58-year-old male with apparently axial back pain who has not benefited from RFA procedures. He has been on chronic opiate therapy and denies any side effects. He denies any diversion or misuse of the medications, and endorses functionality with the medication. He does report some financial problems and has a broken truck. He is prescribed oxycodone acetaminophen 02/27/2025 4 per day, gabapentin 403 times per day, and baclofen from our clinic. Objective - Vital Signs Vital signs: Vital Signs Temp Pulse 66 01/13/19 14:25 Resp 16 01/13/19 14:25 BP 127/84 01/13/19 14:25 Pulse Ox 96 01/13/19 14:25 Intake & Output 01/12/19 01/13/19 01/13/19 18:59 06:59 18:59 Weight 100.244 kg - Exam Vital Signs: Reviewed in EMR GENERAL: Well appearing, in no acute distress, PSYCH: Mood and affect is appropriate. Awake, alert, and oriented SKIN: Skin color, texture, turgor normal, no rashes or lesions HEENT: Normocephalic, atraumatic. EOM intact CV: No pedal edema RESP: Respirations are unlabored, no audible wheezing GI: Abdomen non-distended MUSCULOSKELETAL: Bilateral upper and lower extremity strength is normal and symmetric. No atrophy or tone abnormalities are noted. Lumbar spine: Positive pain to palpation over the lumbar spine and paraspinous muscles. Positive for pain with facet loading and back extension/rotation. Extremities: Peripheral joint ROM is full and pain free without obvious instability or laxity in all four extremities. No edema or skin discolorations noted. Gait: Gait is anantalgic NEUR: No loss of sensation is noted. Cranial nerves are grossly intact. Assessment and Plan Assessment: This is a 58-year-old male with chronic axial back pain was been on chronic opiate therapy. He was previously on both opiates and benzodiazepines but now only on opiates. He denies any side effects from the medications. UDS was either ordered were reviewed. Assessment: 1. Lumbar spondylosis 2. DDD 3. Chronic opioid use Plan: 1. Explanation: Opioid and psychological risk scores were reviewed. Diagnoses, prognoses, and multiple treatment options including but not limited to physical therapy, interventional therapies, adjuvant medical therapies, narcotic medication therapies, and surgery were discussed with the patient and all quest ions were answered to the patient's satisfaction. 2. Opioid agreement: In place 3. Counseling: Specifically, the patient was instructed regarding the importance of weight control, and exercise in the context of both chronic pain and overall health. 4. Procedures: Has not benefited from procedures 5. Consultations: None 6. Investigations: None 7. Medications: Spoke to him in detail about weaning his detail about weaning his opioids. I suggested that we may decreased his oxycodone from a 10 mg dose to a 7.5 mg dose and prescribe the same number of tablets in the future. Prescribed gabapentin and baclofen as well. 8. Disposition: 8 weeks f/u , PQRS Measure Charge Sheet PQRS Narrative: Smoking Status Former smoker Narcotic Agreement Date Signed 02/13/18 Blood Pressure 127/84 Pain Intensity [Bilateral 8 Lower Back] Scale Used Numeric (1 - 10) Hx Alcohol Use (MH) No Home Medications: Ambulatory Orders Omeprazole 20 mg PO DAILY 02/03/16 Aspirin [Adult Low Dose Aspirin EC] 81 mg PO DAILY 03/20/16 Montelukast [Singulair] 10 mg PO HS 06/29/16 cloNIDine HCL [Catapres] 0.1 mg PO HS 12/19/17 Baclofen 10 mg PO BID #60 tablet 04/10/18 Gabapentin [Neurontin] 400 mg PO TID #90 cap 04/10/18 oxyCODONE HCL/ACETAMINOPHEN [Percocet 10-325 mg] 1 tab PO Q8HR PRN 30 Days #90 tab 04/10/18 Atorvastatin [Lipitor] 40 mg PO DAILY 07/30/18 Lisinopril-Hctz 20-25 mg [Zestoretic 20-25] 1 tab PO DAILY 10/18/18 Tiotropium [place] [Spiriva Respimat] 1 spray INHALATION RT-DAILY 10/18/18 busPIRone HCL 15 mg PO BID 10/18/18 metFORMIN HCL [Glucophage] 500 mg PO BID 10/18/18 Desvenlafaxine Succinate [Pristiq] 100 mg PO DAILY 12/13/18 Ipratropium-Albuterol Nebulize [Duoneb 0.5 mg-3 mg/3 ml Soln] 3 ml INHALATION RT-TID PRN 12/13/18 Metoclopramide [Reglan] 5 mg PO QID 01/13/19 Controlled Substance Measures - Controlled Substance Measures Is patient prescribed a controlled substance at discharge?: Yes When asked, does pt state using other controlled substances?: No If prescribed controlled substance>3 days was MAPS reviewed?: Yes If Rx opioid, was Start Talking consent form obtained?: Yes If opioid is for acute pain is fill amount 7 days or less?: No Was information provided regarding opioid addiction?: Yes
== END | disposition home or self-care (01) ==
LOC: PNWHC3 13:56
PROVIDERS: ATTEND Student in an Organized Health Care Education/Training Program
DX: G89.29 Other chronic pain (principal); M51.36 Other intervertebral disc degeneration, lumbar region; M47.816 Spondylosis without myelopathy or radiculopathy, lumbar region; Z87.891 Personal history of nicotine dependence; Z98.890 Other specified postprocedural states; Z79.82 Long term (current) use of aspirin; Z79.84 Long term (current) use of oral hypoglycemic drugs; Z79.891 Long term (current) use of opiate analgesic; Z79.899 Other long term (current) drug therapy
CPT/HCPCS: 99211

== ENCOUNTER 2019-02-06 01:56 | Observation (INO) | payer OTHER ==
[2019-02-06] MEDS ORDERED: oxyCODONE-APAP 10-325MG 1 EACH TAB PO STA (02:28)
--- NOTE | 2019-02-06 02:32 | ED ---
Chest Pain HPI - General Chief Complaint: Chest Pain Stated Complaint: Chest Pain Time Seen by Provider: 02/06/19 02:02 Source: patient, family Mode of arrival: wheelchair Limitations: no limitations - History of Present Illness MD Complaint: chest pain Onset/Timin -: days(s) Onset: during rest Pain Location: substernal Pain Radiation: none Severity: moderate Quality: other (Like something is expanding) Consistency: constant Improves With: nothing Worsens With: nothing Anginal Symptoms: nausea, vomiting Treatments Prior to Arrival: none - Related Data Home Medications Medication Instructions Recorded Confirmed Omeprazole 20 mg PO DAILY 02/03/16 01/13/19 Aspirin [Adult Low Dose Aspirin EC] 81 mg PO DAILY 03/20/16 01/13/19 Montelukast [Singulair] 10 mg PO HS 06/29/16 01/13/19 cloNIDine HCL [Catapres] 0.1 mg PO HS 12/19/17 01/13/19 Atorvastatin [Lipitor] 40 mg PO DAILY 07/30/18 01/13/19 Lisinopril-Hctz 20-25 mg 1 tab PO DAILY 10/18/18 01/13/19 [Zestoretic 20-25] Tiotropium [place] [Spiriva 1 spray INHALATION RT-DAILY 10/18/18 01/13/19 Respimat] busPIRone HCL 15 mg PO BID 10/18/18 01/13/19 metFORMIN HCL [Glucophage] 500 mg PO BID 10/18/18 01/13/19 Desvenlafaxine Succinate [Pristiq] 100 mg PO DAILY 12/13/18 01/13/19 Ipratropium-Albuterol Nebulize 3 ml INHALATION RT-TID PRN 12/13/18 01/13/19 [Duoneb 0.5 mg-3 mg/3 ml Soln] Metoclopramide [Reglan] 5 mg PO QID 01/13/19 01/13/19 Previous Rx's Medication Instructions Recorded Baclofen 10 mg PO BID #60 tablet 04/10/18 Gabapentin [Neurontin] 400 mg PO TID #90 cap 04/10/18 oxyCODONE HCL/ACETAMINOPHEN 1 tab PO Q8HR PRN 30 Days #90 tab 04/10/18 [Percocet 10-325 mg] Allergies Allergy/AdvReac Type Severity Reaction Status Date / Time birds Allergy Severe Wheezing, Uncoded 02/06/19 02:02 SOB steriods Allergy Neck Uncoded 02/06/19 02:02 Swelling, SOB Review of Systems ROS Statement: Those systems with pertinent positive or pertinent negative responses have been documented in the HPI. ROS Other: All systems not noted in ROS Statement are negative. Constitutional: Denies: fever, chills Respiratory: Denies: cough, dyspnea Cardiovascular: Reports: chest pain. Denies: palpitations, orthopnea, edema, syncope Gastrointestinal: Reports: nausea, vomiting, diarrhea. Denies: abdominal pain Genitourinary: Denies: dysuria, hematuria Musculoskeletal: Denies: back pain Skin: Denies: rash Neurological: Denies: headache, weakness, numbness EKG Findings - EKG Results: EKG: interpreted by ERICA, sinus rhythm (With PACs, rate 82 bpm), normal axis, normal QRS, normal ST/T Past Medical History Past Medical History: Asthma, CVA/TIA, Hyperlipidemia, Hypertension, Pneumonia Additional Past Medical History / Comment(s): Back pain-LUMBAR, vertigo, STROKES BEHIND THE EYES,. difficulty swallowing. History of Any Multi-Drug Resistant Organisms: None Reported Past Surgical History: Appendectomy, Hernia Repair, Orthopedic Surgery Additional Past Surgical History / Comment(s): RT INGUINAL HERNIA , RT ROTATOR CUFF SX, Pain procedures. circumcision september 2018 Past Anesthesia/Blood Transfusion Reactions: No Reported Reaction Past Psychological History: Anxiety, Depression Smoking Status: Former smoker Past Alcohol Use History: None Reported Past Drug Use History: None Reported - Past Family History Father Family Medical History: Cancer Mother Family Medical History: Hypertension General Exam Limitations: no limitations General appearance: alert, in no apparent distress Head exam: Present: atraumatic, normocephalic Eye exam: Present: normal appearance. Absent: scleral icterus, conjunctival injection ENT exam: Present: normal oropharynx Respiratory exam: Present: normal lung sounds bilaterally. Absent: respiratory distress, wheezes, rales, rhonchi, stridor Cardiovascular Exam: Present: regular rate, normal rhythm, normal heart sounds. Absent: systolic murmur, diastolic murmur, rubs, gallop GI/Abdominal exam: Present: soft. Absent: distended, tenderness, guarding, rebound, rigid, mass Extremities exam: Present: normal inspection, normal capillary refill. Absent: pedal edema, calf tenderness Back exam: Present: normal inspection. Absent: CVA tenderness (R), CVA tenderness (L) Neurological exam: Present: alert Skin exam: Present: warm, dry, intact, normal color. Absent: rash Course Vital Signs 02/06/19 02/06/19 02/06/19 01:58 04:38 06:40 Temperature 97.9 F Pulse Rate 66 70 64 Respiratory 20 18 18 Rate Blood Pressure 161/92 131/88 128/81 O2 Sat by Pulse 98 97 98 Oximetry Disposition Clinical Impression: Chest pain Disposition: ADMITTED IP TO THIS HOSP Condition: Fair Is patient prescribed a controlled substance at d/c from ED?: No
[2019-02-06 02:41] LABS: Basophils # (A) 0.2 k/uL (0-0.2); Basophils % (A) 1 %; Eosinophils # (A) 0.2 k/uL (0-0.7); Eosinophils % (A) 2 %; HCT 39.8 % (39.0-53.0); HGB 13.4 gm/dL (13.0-17.5); Lymphocytes # (A) 3.1 k/uL (1.0-4.8); Lymphocytes % (A) 25 %; MCH 30.9 pg (25.0-35.0); MCHC 33.8 g/dL (31.0-37.0); MCV 91.4 fL (80.0-100.0); Mean Platelet Volume 8.3; Monocytes # (A) 0.7 k/uL (0-1.0); Monocytes % (A) 6 %; Neutrophils # (A) 7.8 k/uL (1.3-7.7); Neutrophils % (A) 64 %; Platelet Count 253 k/uL (150-450); RBC 4.35 m/uL (4.30-5.90); RDW 15.7 % (11.5-15.5); WBC 12.1 k/uL (3.8-10.6)
[2019-02-06 02:46] LABS: ALT 30 U/L (21-72); AST 27 U/L (17-59); African American GFR (CKD) >90 (>60 ml/min/1.73 sqM); Albumin 3.9 g/dL (3.5-5.0); Alkaline Phosphatase 77 U/L (38-126); Amylase 82 U/L (30-110); Anion Gap 11 mmol/L; Blood Urea Nitrogen 14 mg/dL (9-20); Calcium 9.3 mg/dL (8.4-10.2); Carbon Dioxide 22 mmol/L (22-30); Chloride 106 mmol/L (98-107); Glucose 171 mg/dL (74-99); Magnesium 1.3 mg/dL (1.6-2.3); Potassium 3.5 mmol/L (3.5-5.1); Sodium 139 mmol/L (137-145); Total Bilirubin 0.2 mg/dL (0.2-1.3); Total Protein 6.7 g/dL (6.3-8.2)
[2019-02-06 03:12] LABS: D-Dimer 0.3 mg/L FEU (<0.60); Partial Thromboplastin Time 23.2 sec (22.0-30.0); Prothrombin Time 10.5 sec (9.0-12.0)
--- NOTE | 2019-02-06 03:49 | XR ---
EXAM: XR Chest, 2 Views CLINICAL HISTORY: ITS.REASON XR Reason: Chest Pain TECHNIQUE: Frontal and lateral views of the chest. COMPARISON: 10/18/2018; 12/13/2018 FINDINGS: Lungs: Opacity adjacent to the apex of the left heart border is stable in appearance and presumed prominent epicardial fat pad. No focal consolidation. The pulmonary vasculature demonstrates no evidence for significant radiographic abnormality. Pleural space: No pleural effusion. No pneumothorax. Heart: Unremarkable. No cardiomegaly. Mediastinum: Mediastinal contours are within normal limits. The trachea is midline. Bones/joints: Unremarkable. IMPRESSION: No focal consolidation or acute cardiopulmonary process identified.
[2019-02-06] MEDS ORDERED: MAGNESIUM OXIDE 400 MG TAB PO STA (03:56)
[2019-02-06] MEDS ORDERED: NITROGLYCERIN OINT 1 INCH/GM PACKET TOPICAL STA (04:01)
[2019-02-06 04:39] VITALS: RESP 18
[2019-02-06] MEDS ORDERED: NITROGLYCERIN SL TABS 0.4 MG TAB SUBLINGUAL PRN (05:50)
[2019-02-06] MEDS ORDERED: oxyCODONE-APAP 10-325MG 1 EACH TAB PO PRN (05:52)
[2019-02-06] MEDS ORDERED: IPRATROPIUM-ALBUTEROL 3 ML NEB INHALATION PRN (05:52)
[2019-02-06] MEDS ORDERED: PANTOPRAZOLE 40 MG TABLET PO SCH (07:30)
[2019-02-06] MEDS ORDERED: MECLIZINE 25 MG TAB PO STA (07:59)
[2019-02-06] MEDS ORDERED: Magnesium Replacement Protocol 1 EACH MISC MISCELLANE PRN (08:03)
[2019-02-06] MEDS ORDERED: DESVENLAFAXINE SUCCINATE 50 MG TAB.ER.24H PO SCH (09:00)
[2019-02-06] MEDS ORDERED: BACLOFEN 10 MG TAB PO SCH (09:00)
[2019-02-06] MEDS ORDERED: LISINOPRIL-HCTZ 20-25 MG 1 EACH TAB PO SCH (09:00)
[2019-02-06] MEDS ORDERED: busPIRone HCl 5 MG TAB PO SCH (09:00)
[2019-02-06] MEDS ORDERED: GABAPENTIN 400 MG CAP PO SCH (09:00)
[2019-02-06] MEDS ORDERED: metFORMIN 500 MG TAB PO SCH (09:00)
[2019-02-06] MEDS ORDERED: NON FORMULARY DRUG (Aspirin [Adult Low Dose Aspirin Ec] 81 MG) PO SCH (09:00)
[2019-02-06] MEDS ORDERED: ATORVASTATIN 40 MG TAB PO SCH (09:00)
[2019-02-06] MEDS: MAGNESIUM SULFATE-D5W PMX 1 GM in DEXTROSE/WATER 1 100ML.BAG IVPB SCH ×3 (09:19→12:59)
[2019-02-06] MEDS: METOCLOPRAMIDE 5 MG TAB PO SCH ×2 (09:22→12:59)
--- NOTE | 2019-02-06 09:42 | P.CRDCN ---
History of Present Illness History of present illness: This is a pleasant 58-year-old male past medical history significant for hypertension, dyslipidemia, asthma, chronic back pain and former nicotine dependence. He follows in the office with Dr. Almonte. We have been asked to see him in consultation for chest pain. He states 3 days ago he started feeling a pressure sensation in the mid-sternal region. The discomfort did not move or radiate to the back, neck, arm or jaw. The pain has been constant for 3 days with no alleviating factors. The pain also does not increase with activity, exertion, cough or deep breathing. Then 2 days ago he started vomiting. He states he vomited all day without relief. The following day he started feeling dizzy and unsteady on his feet. He states he was stumbling all around his house and bumping into things. He has had vertigo in the past and this felt similar. He has antivert at home however this doesn't typically work for him. He denies any palpitations, diaphoresis or shortness of breath. EKG reveals sinus mechanism with PAC's, heart rate 82. Chest xray negative for an acute cardiopulmonary process. Laboratory data reviewed, WBC 12.1, hgb 13.4, plt 253, d-dimer 0.30, sodium 139, potassium 3.5, creatinine 0.85, magnesium 1.3, cardiac enzymes negative x1, lipase 341. Current cardiac medications include aspirin 81 mg daily, atorvastatin 40 mg daily, lisinopril 20 mg daily and clonidine 0.1 mg at bedtime. Most recent stress test performed in the office 01/16/2019 was a Lexiscan stress test and was negative for reversible ischemia. Most recent echocardiogram 09/2018 revealed preserved LV systolic function with EF 55-60%. At the time of my exam: CONSTITUTIONAL: Denies fever. Denies chills. EYES: Denies blurred vision. Denies vision changes. Denies eye pain. EARS, NOSE, MOUTH & THROAT: Denies headache. Denies sore throat. Denies ear pain. CARDIOVASCULAR: Denies chest pain. Denies shortness of breath. Denies orthopnea. Denies PND. Denies palpitations. RESPIRATORY: Denies cough. GASTROINTESTINAL: Denies abdominal pain. Denies diarrhea. Denies constipation. Denies nausea. Denies vomiting. MUSCULOSKELETAL: Denies myalgias. INTEGUMENTARY: Denies pruitis. Denies rash. NEUROLOGIC: Denies numbness. Denies tingling. Denies weakness. Complains of exertional dizziness. PSYCHIATRIC: Denies anxiety. Denies depression. ENDOCRINE: Denies fatigue. Denies weight change. Denies polydipsia. Denies polyurina. GENITOURINARY: Denies burning, hematuria or urgency with micturation. HEMATOLOGIC: Denies history of anemia. Denies bleeding. Blood pressure 133/76 heart rate 64 afebrile and maintaining oxygen saturation on room air GENERAL: This is a 58-year-old male in no apparent distress at the time of my examination. HEENT: Head is atraumatic, normocephalic. Pupils are equal, round. Sclerae anicteric. Conjunctivae are clear. Mucous membranes of the mouth are moist. Neck is supple. There is no jugular venous distention. No carotid bruit is heard. LUNGS: Clear to auscultation no wheezes, rales or rhonchi. No chest wall tenderness is noted on palpation or with deep breathing. HEART: Regular rate and rhythm without murmurs, rubs or gallops. S1 and S2 heard. ABDOMEN: Soft, nontender. Bowel sounds are heard. No organomegaly noted. EXTREMITIES: No evidence of peripheral edema and no calf tenderness noted. VASCULAR: Radial and dorsalis pedis pulses palpated, no evidence of clubbing. NEUROLOGIC: Patient is awake, alert and oriented x3. ASSESSMENT Chest pain, atypical. No EKG evidence of ischemia. Normal stress test in the office 3 weeks ago. Leukocytosis Hypomagnesemia Elevated lipase, possibly cause of nausea, vomiting and pain. Dizziness suggestive of vertigo Hypertension Dyslipidemia Chronic back pain PLAN Chest pain is quite atypical for angina. Continue to obtain serial cardiac enzymes, if second set is negative he may be discharged from a cardiac perspective. Replace magnesium per protocol. Ongoing medical management and evaluation of elevated lipase. Follow up with Dr. Almonte upon discharge. Thank you kindly for this consultation. Nurse Practitioner note has been reviewed, I agree with a documented findings and plan of care. Patient was seen and examined. Past Medical History Past Medical History: Asthma, CVA/TIA, Hyperlipidemia, Hypertension, Pneumonia Additional Past Medical History / Comment(s): Back pain-LUMBAR, vertigo, STROKES BEHIND THE EYES,. difficulty swallowing. History of Any Multi-Drug Resistant Organisms: None Reported Past Surgical History: Appendectomy, Hernia Repair, Orthopedic Surgery Additional Past Surgical History / Comment(s): RT INGUINAL HERNIA INFANT, RT ROTATOR CUFF SX, Pain procedures. circumcision september 2018 Past Anesthesia/Blood Transfusion Reactions: No Reported Reaction Past Psychological History: Anxiety, Depression Smoking Status: Former smoker Past Alcohol Use History: None Reported Past Drug Use History: None Reported - Past Family History Father Family Medical History: Cancer Mother Family Medical History: Hypertension Medications and Allergies Home Medications Medication Instructions Recorded Confirmed Type Omeprazole 20 mg PO DAILY 02/03/16 02/06/19 History Aspirin [Adult Low Dose Aspirin EC] 81 mg PO DAILY 03/20/16 02/06/19 History Montelukast [Singulair] 10 mg PO HS 06/29/16 02/06/19 History cloNIDine HCL [Catapres] 0.1 mg PO HS 12/19/17 02/06/19 History Baclofen 10 mg PO BID #60 tablet 04/10/18 02/06/19 Rx Gabapentin [Neurontin] 400 mg PO TID #90 cap 04/10/18 02/06/19 Rx oxyCODONE HCL/ACETAMINOPHEN 1 tab PO Q8HR PRN 30 Days #90 tab 04/10/18 02/06/19 Rx [Percocet 10-325 mg] Atorvastatin [Lipitor] 40 mg PO DAILY 07/30/18 02/06/19 History Tiotropium [place] [Spiriva 1 spray INHALATION RT-DAILY 10/18/18 02/06/19 History Respimat] busPIRone HCL 15 mg PO BID 10/18/18 02/06/19 History metFORMIN HCL [Glucophage] 500 mg PO BID 10/18/18 02/06/19 History Desvenlafaxine Succinate [Pristiq] 100 mg PO DAILY 12/13/18 02/06/19 History Lisinopril 20 mg PO DAILY 02/06/19 02/06/19 History Allergies Allergy/AdvReac Type Severity Reaction Status Date / Time birds Allergy Severe Wheezing, Uncoded 02/06/19 07:20 SOB steriods Allergy Neck Uncoded 02/06/19 07:20 Swelling, SOB Physical Exam Vitals: Vital Signs Temp Pulse Resp BP Pulse Ox 02/06/19 06:40 64 18 128/81 98 02/06/19 04:38 70 18 131/88 97 02/06/19 01:58 97.9 F 66 20 161/92 98 Intake and Output 02/05/19 02/06/19 02/06/19 22:59 06:59 14:59 Other: Weight 102.058 kg Results 02/06/19 02:26 02/06/19 02:26 Cardiac Enzymes 02/06/19 02/06/19 Range/Units 02:26 02:26 AST 27 (17-59) U/L Troponin I <0.012 (0.000-0.034) ng/mL Coagulation 02/06/19 Range/Units 02:26 PT 10.5 (9.0-12.0) sec APTT 23.2 (22.0-30.0) sec CBC 02/06/19 Range/Units 02:26 WBC 12.1 H (3.8-10.6) k/uL RBC 4.35 (4.30-5.90) m/uL Hgb 13.4 (13.0-17.5) gm/dL Hct 39.8 (39.0-53.0) % Plt Count 253 (150-450) k/uL Comprehensive Metabolic Panel 02/06/19 Range/Units 02:26 Sodium 139 (137-145) mmol/L Potassium 3.5 (3.5-5.1) mmol/L Chloride 106 (98-107) mmol/L Carbon Dioxide 22 (22-30) mmol/L BUN 14 (9-20) mg/dL Creatinine 0.85 (0.66-1.25) mg/dL Glucose 171 H (74-99) mg/dL Calcium 9.3 (8.4-10.2) mg/dL AST 27 (17-59) U/L ALT 30 (21-72) U/L Alkaline Phosphatase 77 (38-126) U/L Total Protein 6.7 (6.3-8.2) g/dL Albumin 3.9 (3.5-5.0) g/dL Current Medications Generic Name Dose Route Start Last Admin Trade Name Freq PRN Reason Stop Dose Admin Albuterol/Ipratropium 3 ml 02/06/19 05:52 Duoneb 0.5 Mg-3 Mg/3 Ml Soln INHALATION RT-TID PRN Shortness Of Breath Aspirin 325 mg 02/07/19 09:00 Aspirin PO DAILY [facility] Atorvastatin Calcium 40 mg 02/06/19 09:00 Lipitor PO DAILY [facility] Baclofen 10 mg 02/06/19 09:00 Lioresal PO BID [facility] Buspirone HCl 15 mg 02/06/19 09:00 Buspar PO BID [facility] Clonidine 0.1 mg 02/06/19 21:00 Catapres PO HS [facility] Desvenlafaxine Succinate 100 mg 02/06/19 09:00 Pristiq Er PO DAILY [facility] Gabapentin 400 mg 02/06/19 09:00 Neurontin PO TID [facility] Lisinopril/HCTZ 1 each 02/06/19 09:00 Zestoretic 20-25 PO DAILY [facility] Ipratropium [place] 0.5 mg 02/06/19 08:00 Atrovent Nebulized INHALATION RT-QID [facility] Metformin HCl 500 mg 02/06/19 09:00 Glucophage PO BID [facility] Metoclopramide HCl 5 mg 02/06/19 09:00 Reglan PO QID [facility] Montelukast Sodium 10 mg 02/06/19 21:00 Singulair PO HS [facility] Nitroglycerin 0.4 mg 02/06/19 05:50 Nitrostat SUBLINGUAL Q5M PRN Chest Pain Oxycodone/Acetaminophen 1 each 02/06/19 05:52 Percocet 10-325 PO Q8HR PRN Pain Pantoprazole Sodium 40 mg 02/06/19 07:30 Protonix PO DAILY@0730 [facility] Intake and Output 02/05/19 02/06/19 02/06/19 22:59 06:59 14:59 Other: Weight 102.058 kg 02/06/19 02:26 02/06/19 02:26
[2019-02-06 09:59] VITALS: BMI 30.5
[2019-02-06 11:22] VITALS: TEMP 98.5
[2019-02-06 11:43] LABS: Glucose,Whole Blood 148 mg/dL (75-99)
--- NOTE | 2019-02-06 12:27 | P.HPIM ---
History of Present Illness 58-year-old pleasant male came compensative from her chest pain started today morning which is in the retrosternal area, feels like there is a bubble in there today patient had nausea vomiting last couple days nothing today. Denied any radiation to the back, arm, neck or jaw denied any diaphoresis nonpleuritic pain not associated with food doesn't increase with activity. Mild chest pain, patient was comparing of dizziness which he doesn't think vertigo but can't clearly explain whether it's lightheadedness on room spinning around. Denied any shortness of breath cough. Review of Systems REVIEW OF SYSTEMS: CONSTITUTIONAL: No fever, no malaise, no fatigue. HEENT: No recent visual problems or hearing problems. Denied any sore throat. CARDIOVASCULAR: No orthopnea, PND, no palpitations, no syncope. PULMONARY: No shortness of breath, no cough, no hemoptysis. GASTROINTESTINAL: No diarrhea, no nausea, no vomiting, no abdominal pain. NEUROLOGICAL: No headaches, no weakness, no numbness. HEMATOLOGICAL: Denies any bleeding or petechiae. GENITOURINARY: Denies any burning micturition, frequency, or urgency. MUSCULOSKELETAL/RHEUMATOLOGICAL: Denies any joint pain, swelling, or any muscle pain. ENDOCRINE: Denies any polyuria or polydipsia. The rest of the 14-point review of systems is negative. Past Medical History Past Medical History: Asthma, CVA/TIA, Hyperlipidemia, Hypertension, Pneumonia Additional Past Medical History / Comment(s): Pt states he has been told he has had greater than 14 "strokes" behind his eyes, NIDDM type II, neuropathy bilateral hands, gastroparesis, difficulty swallowing, hiatal hernia, mild gastritis, bertigo, lumbar pain (past fractured vertebrae). History of Any Multi-Drug Resistant Organisms: None Reported Past Surgical History: Appendectomy, Hernia Repair, Orthopedic Surgery Additional Past Surgical History / Comment(s): Umbilical hernia repair, R inguinal hernia repair as an infant, R rotator cuff repair, pain clinic procedures, circumcism, EGD, colonoscopy. Past Anesthesia/Blood Transfusion Reactions: No Reported Reaction Smoking Status: Former smoker - Past Family History Father Family Medical History: Cancer Additional Family Medical History / Comment(s): Father is 80 some years old and recently found that his pancreatic cancer has recurred. Mother Family Medical History: Hypertension Medications and Allergies Home Medications Medication Instructions Recorded Confirmed Type Omeprazole 20 mg PO DAILY 02/03/16 02/06/19 History Aspirin [Adult Low Dose Aspirin EC] 81 mg PO DAILY 03/20/16 02/06/19 History Montelukast [Singulair] 10 mg PO HS 06/29/16 02/06/19 History cloNIDine HCL [Catapres] 0.1 mg PO HS 12/19/17 02/06/19 History Baclofen 10 mg PO BID #60 tablet 04/10/18 02/06/19 Rx Gabapentin [Neurontin] 400 mg PO TID #90 cap 04/10/18 02/06/19 Rx oxyCODONE HCL/ACETAMINOPHEN 1 tab PO Q8HR PRN 30 Days #90 tab 04/10/18 02/06/19 Rx [Percocet 10-325 mg] Atorvastatin [Lipitor] 40 mg PO DAILY 07/30/18 02/06/19 History Tiotropium [place] [Spiriva 1 spray INHALATION RT-DAILY 10/18/18 02/06/19 History Respimat] busPIRone HCL 15 mg PO BID 10/18/18 02/06/19 History metFORMIN HCL [Glucophage] 500 mg PO BID 10/18/18 02/06/19 History Desvenlafaxine Succinate [Pristiq] 100 mg PO DAILY 12/13/18 02/06/19 History Lisinopril 20 mg PO DAILY 02/06/19 02/06/19 History Allergies Allergy/AdvReac Type Severity Reaction Status Date / Time birds Allergy Severe Wheezing, Uncoded 02/06/19 07:20 SOB steriods Allergy Neck Uncoded 02/06/19 07:20 Swelling, SOB Physical Exam Vitals: Vital Signs Temp Pulse Pulse Resp BP BP Pulse Ox 02/06/19 11:20 98.5 F 63 18 130/79 97 02/06/19 09:49 98 02/06/19 09:03 98.0 F 64 18 133/76 96 02/06/19 08:45 86 02/06/19 08:30 126/84 02/06/19 08:00 119/74 98 02/06/19 07:30 113/80 99 02/06/19 06:40 64 18 128/81 98 02/06/19 04:38 70 18 131/88 97 02/06/19 01:58 97.9 F 66 20 161/92 98 Intake and Output 02/05/19 02/06/19 02/06/19 22:59 06:59 14:59 Other: Voiding Method Toilet # Voids 1 Weight 102.058 kg PHYSICAL EXAMINATION: GENERAL: The patient is alert and oriented x3, not in any acute distress. Well developed, well nourished. HEENT: Pupils are round and equally reacting to light. EOMI. No scleral icterus. No conjunctival pallor. Normocephalic, atraumatic. No pharyngeal erythema. No thyromegaly. CARDIOVASCULAR: S1 and S2 present. No murmurs, rubs, or gallops. PULMONARY: Chest is clear to auscultation, no wheezing or crackles. ABDOMEN: Soft, nontender, nondistended, normoactive bowel sounds. No palpable organomegaly. MUSCULOSKELETAL: No joint swelling or deformity. EXTREMITIES: No cyanosis, clubbing, or pedal edema. NEUROLOGICAL: Gross neurological examination did not reveal any focal deficits. SKIN: No rashes. Results CBC & Chem 7: 02/06/19 02:26 02/06/19 02:26 Labs: Abnormal Lab Results - Last 24 Hours (Table) 02/06/19 02/06/19 02/06/19 Range/Units 02:26 02:26 11:41 WBC 12.1 H (3.8-10.6) k/uL RDW 15.7 H (11.5-15.5) % Neutrophils # 7.8 H (1.3-7.7) k/uL Glucose 171 H (74-99) mg/dL POC Glucose (mg/dL) 148 H (75-99) mg/dL Magnesium 1.3 L (1.6-2.3) mg/dL Lipase 341 H (23-300) U/L Thrombosis Risk Factor Assmnt - Choose All That Apply Any of the Below Risk Factors Present?: Yes Each Factor Represents 1 point: Age 41-60 years, Obesity (BMI >25) Other Risk Factors: No Other congenital or acquired thrombophilia - If yes, enter type in comment: No Thrombosis Risk Factor Assessment Total Risk Factor Score: 2 Thrombosis Risk Factor Assessment Level: Low Risk Assessment and Plan Plan: Chest pain we'll rule out acute coronary syndromes, unstable angina will obtain 2 more sets of troponins and EKGs, appears to be atypical appears to be gastroesophageal reflux disease patient will be continued on Protonix -Lightheadedness unsure whether it's vertigo will cut down the dose of antidepressant medication. -Asthma without any acute accelerations. -Hyperlipidemia
--- NOTE | 2019-02-06 12:55 | P.DS ---
Providers Date of admission: 02/06/19 05:52 Attending physician: Latasha Smith Consults: 02/06/19 05:50 Consult Physician Routine Consulting Provider: Declan Rose Consult Reason/Comments: chest pain Do you want consulting provider notified?: Yes Primary care physician: Fabiana Monroy Hospital Course: Please refer to my HPI and patient will be discharged on Antivert. Patient was cleared for discharge from cardiology perspective patient appears to have had a stress test recently as an outpatient which was negative for inducible ischemia. Patient Condition at Discharge: Fair Plan - Discharge Summary Discharge Rx Participant: No New Discharge Prescriptions: No Action Omeprazole 20 mg PO DAILY Aspirin [Adult Low Dose Aspirin EC] 81 mg PO DAILY Montelukast [Singulair] 10 mg PO HS cloNIDine HCL [Catapres] 0.1 mg PO HS oxyCODONE HCL/ACETAMINOPHEN [Percocet 10-325 mg] 1 tab PO Q8HR PRN 30 Days #90 tab PRN Reason: Pain Baclofen 10 mg PO BID #60 tablet Gabapentin [Neurontin] 400 mg PO TID #90 cap Atorvastatin [Lipitor] 40 mg PO DAILY metFORMIN HCL [Glucophage] 500 mg PO BID Tiotropium [place] [Spiriva Respimat] 1 spray INHALATION RT-DAILY busPIRone HCL 15 mg PO BID Desvenlafaxine Succinate [Pristiq] 100 mg PO DAILY Lisinopril 20 mg PO DAILY Discharge Medication List Omeprazole 20 mg PO DAILY 02/03/16 [History] Aspirin [Adult Low Dose Aspirin EC] 81 mg PO DAILY 03/20/16 [History] Montelukast [Singulair] 10 mg PO HS 06/29/16 [History] cloNIDine HCL [Catapres] 0.1 mg PO HS 12/19/17 [History] Baclofen 10 mg PO BID #60 tablet 04/10/18 [Rx] Gabapentin [Neurontin] 400 mg PO TID #90 cap 04/10/18 [Rx] oxyCODONE HCL/ACETAMINOPHEN [Percocet 10-325 mg] 1 tab PO Q8HR PRN 30 Days #90 tab 04/10/18 [Rx] Atorvastatin [Lipitor] 40 mg PO DAILY 07/30/18 [History] Tiotropium [place] [Spiriva Respimat] 1 spray INHALATION RT-DAILY 10/18/18 [History] busPIRone HCL 15 mg PO BID 10/18/18 [History] metFORMIN HCL [Glucophage] 500 mg PO BID 10/18/18 [History] Desvenlafaxine Succinate [Pristiq] 100 mg PO DAILY 12/13/18 [History] Lisinopril 20 mg PO DAILY 02/06/19 [History] Follow up Appointment(s)/Referral(s): Fabiana Monroy MD [Primary Care Provider] - 1-2 days Ximena Almonte MD [STAFF PHYSICIAN] - 2 Weeks
[2019-02-06 13:23] VITALS: BP 145/77; PULSE 68
[2019-02-06] MEDS: IPRATROPIUM 0.5 MG/2.5 ML NEBU INHALATION SCH ×3 (15:18→16:06)
[2019-02-06] MEDS ORDERED: cloNIDine HCL 0.1 MG TAB PO SCH (21:00)
[2019-02-06] MEDS ORDERED: MONTELUKAST 10 MG TAB PO SCH (21:00)
[2019-02-07] MEDS ORDERED: LISINOPRIL-HCTZ 20-25 MG 1 EACH TAB PO SCH (09:00)
[2019-02-07] MEDS ORDERED: ASPIRIN 325 MG TAB PO SCH (09:00)
[2019-02-07] MEDS ORDERED: ASPIRIN 81 MG PO SCH (09:00)
== END 2019-02-06 16:55 | disposition home or self-care (01) ==
LOC: EC 01:56 → 1SOBS 05:52
PROVIDERS: ADMIT Hospitalist; ATTEND Hospitalist
DX: R07.89 Other chest pain (principal); E83.42 Hypomagnesemia; R42 Dizziness and giddiness; D72.829 Elevated white blood cell count, unspecified; R74.8 Abnormal levels of other serum enzymes; J45.909 Unspecified asthma, uncomplicated; I10 Essential (primary) hypertension; E11.42 Type 2 diabetes mellitus with diabetic polyneuropathy; K31.84 Gastroparesis; K44.9 Diaphragmatic hernia without obstruction or gangrene; E78.5 Hyperlipidemia, unspecified; G89.29 Other chronic pain; M54.5 Low back pain; R13.10 Dysphagia, unspecified; F41.9 Anxiety disorder, unspecified; F32.9 Major depressive disorder, single episode, unspecified; E11.43 Type 2 diabetes mellitus with diabetic autonomic (poly)neuropathy; E66.9 Obesity, unspecified; Z68.30 Body mass index [BMI] 30.0-30.9, adult; Z79.82 Long term (current) use of aspirin; Z79.84 Long term (current) use of oral hypoglycemic drugs; Z79.891 Long term (current) use of opiate analgesic; Z79.899 Other long term (current) drug therapy; Z88.8 Allergy status to other drugs, medicaments and biological substances; Z91.048 Other nonmedicinal substance allergy status; Z86.73 Personal history of transient ischemic attack (TIA), and cerebral infarction without residual deficits; Z90.49 Acquired absence of other specified parts of digestive tract; Z87.01 Personal history of pneumonia (recurrent); Z87.891 Personal history of nicotine dependence; Z87.19 Personal history of other diseases of the digestive system; Z87.81 Personal history of (healed) traumatic fracture; Z82.49 Family history of ischemic heart disease and other diseases of the circulatory system; Z80.9 Family history of malignant neoplasm, unspecified; Z80.0 Family history of malignant neoplasm of digestive organs
CPT/HCPCS: 96365; 96366; 99285; 36415; 93005; 85379; 80053; 82150; 83690; 83735; 84484; 85025; 85610; 85730; 71046; G0378; J3475

== ENCOUNTER → 2019-03-10 | Outpatient (CLI) | payer OTHER ==
[2019-03-10 12:46] VITALS: BP 155/79; PULSE 77; RESP 18
--- NOTE | 2019-03-10 13:11 | P.PAINPG ---
Subjective Progress Note Date: 03/10/19 This is follow-up visit for this patient with a history of severe and chronic low back pain secondary to lumbar degenerative disc disease, lumbar spondylosis with facet arthropathy, We have done an interventional pain procedure radiofrequency ablation of the medial branch lumbar area L3 to S1, he had short-term benefit from it The patient currently on Neurontin 400 mg every 8 hours, Percocet 10/325 every 6 hours, baclofen 10 mg twice a day Patient denies any side effect of the medication , patient denies any excessive drowsiness or sleepiness, patient denies any suicidal ideation, Patient reported that the current medication is helping to control the pain and improve the activity of daily livings, Patient denies any motor or sensory deficit, denies any change in the bowel movement or urination, patient denies any fever or night sweats. Patient here today for follow-up visit and medication refill Objective - Vital Signs Vital signs: Vital Signs Temp Pulse 77 03/10/19 12:42 Resp 18 03/10/19 12:42 BP 155/79 03/10/19 12:42 Pulse Ox 98 03/10/19 12:42 - Exam Physical Examinations : -Constitutiona : Cooperative , not in acute distress . -HEENT : nech : supple , no Lymphadenopathy , normal thyroid size . eyes : no ptosis , no icterus, no photophobia . - neurologic : Cranial nerve II to XII intact , no focal neurological deffecit . -psychatric : alert , oriented X 3 , appropriate affect , intact judgment and insight . -Lymphatic : no Lymphadenopathy . - musculoskeltal : Lumber spine moter stegnth lower extremities ,thigh and legs 5/5 Right side , 5/5 Left side Assessment and Plan Plan: Assessment and plan= chronic low back pain secondary to lumbar degenerative disc disease , lumbar spondylosis with lumbar facet arthropathy . chronic and current use of high-risk medication (opioids) Patient denies any side effects of the current pain medication and the current treatment/medication helping the patient to do activity of daily living , Diagnoses, prognosis, treatment options, including but not limited to physical therapy, medication management, interventional therapies, and surgery, were discussed with the patient All the questions answered The narcotic consent was signed and patient agreed and understood the side effects and complications of opioid treatment. Patient signed the narcotic agreement, and was orally counseled, not to overuse, not to abuse, not to Divert , not tp sell pain medication, and to take it as prescribed only, Patient was counseled not to drive or operate heavy equipment while using narcotic medication, and advised not to use alcohol or any Illicit drugs while using the narcotis. understanding that lack of compliance with any of the above instructions, will likely to cause discharge from, the pain service, not to renew his narcotic prescriptions MAPS Reviwed and it was apropriate . Medication managements= patient will be given prescription refills for Percocet 10/325 every 6 hours dispense 120 with one refill, Neurontin 400 mg michael ry 8 hours dispense 90 with 1 refill baclofen 10 mg twice a day dispense 60 with 1 refill , Time with Patient: Less than 30 PQRS Measure Charge Sheet Measure #130: Documentation of Current Meds in Medical Chart: Patient's medications documented in chart Measure #226: Tobacco Use: Screen & Cessation Intervention: Pt not a tobacco user Measure #111: Pneumonia Vaccination: Pneumococcal vaccine administered or previously received Measure #47: Advance Care Plan: Advance care planning discussed & documented, pt chose/unable to give Measure #412: Opioid Treatment Agreement: Documented signed opioid trtmnt agreemnt min once during opioid trtmnt Measure #408: Opioid Therapy Follow-up Evaluation: Patient had f/u eval minimum every 3 months during opioid therapy Measure #317: Preventitive Care & Scrn High Bld Press & F/U: Pre-hypertensive or hypertensive BP documented, pt will f/u with PCP Measure #128: Body Mass Index (BMI) Screening & Follow-up: BMI documented ABOVE normal parameters - f/u documented Measure #131: Pain Assessment & Follow-up: Pain positive & plan documented, Follow-up scheduled Measure #431: Unhealthy Alcohol Use Preventative Care & Scrn: Patient not identified as an unhealthy alcohol user PQRS Narrative: Smoking Status Former smoker Narcotic Agreement Date Signed 02/13/18 Blood Pressure 155/79 Pain Intensity [Lower Back] 8 Scale Used Numeric (1 - 10) Hx Alcohol Use (MH) No Home Medications: Ambulatory Orders Omeprazole 20 mg PO DAILY 02/03/16 Aspirin [Adult Low Dose Aspirin EC] 81 mg PO DAILY 03/20/16 Montelukast [Singulair] 10 mg PO HS 06/29/16 cloNIDine HCL [Catapres] 0.1 mg PO HS 12/19/17 Baclofen 10 mg PO BID #60 tablet 04/10/18 Gabapentin [Neurontin] 400 mg PO TID #90 cap 04/10/18 oxyCODONE HCL/ACETAMINOPHEN [Percocet 10-325 mg] 1 tab PO Q8HR PRN 30 Days #90 tab 04/10/18 Atorvastatin [Lipitor] 40 mg PO DAILY 07/30/18 Tiotropium [place] [Spiriva Respimat] 1 spray INHALATION RT-DAILY 10/18/18 busPIRone HCL 15 mg PO BID 10/18/18 metFORMIN HCL [Glucophage] 500 mg PO BID 10/18/18 Desvenlafaxine Succinate [Pristiq] 100 mg PO DAILY 12/13/18 Lisinopril 20 mg PO DAILY 02/06/19 Meclizine [Antivert] 25 mg PO TID PRN #20 tab 02/06/19 Controlled Substance Measures - Controlled Substance Measures Is patient prescribed a controlled substance at discharge?: Yes When asked, does pt state using other controlled substances?: No If prescribed controlled substance>3 days was MAPS reviewed?: Yes If Rx opioid, was Start Talking consent form obtained?: Yes If opioid is for acute pain is fill amount 7 days or less?: No Was information provided regarding opioid addiction?: Yes
== END | disposition home or self-care (01) ==
LOC: PNWHC3 11:36
PROVIDERS: ATTEND Specialist
DX: G89.29 Other chronic pain (principal); M51.36 Other intervertebral disc degeneration, lumbar region; M47.816 Spondylosis without myelopathy or radiculopathy, lumbar region; M46.96 Unspecified inflammatory spondylopathy, lumbar region; Z87.891 Personal history of nicotine dependence; Z79.82 Long term (current) use of aspirin; Z79.891 Long term (current) use of opiate analgesic; Z79.84 Long term (current) use of oral hypoglycemic drugs; Z79.899 Other long term (current) drug therapy
CPT/HCPCS: 99211

== ENCOUNTER → 2019-05-05 | Outpatient (CLI) | payer OTHER ==
[2019-05-05 13:41] VITALS: BP 145/92; PULSE 70; RESP 16
--- NOTE | 2019-05-07 13:42 | P.PAINPG ---
Subjective Progress Note Date: 05/05/19 This is follow-up visit for this patient with a history of severe and chronic low back pain secondary to lumbar degenerative disc disease, lumbar spondylosis with facet arthropathy, We have done an interventional pain procedure radiofrequency ablation of the medial branch lumbar area L3 to S1, he had short-term benefit from it. Pain is located primarily in bilateral low back, left greater than right, radiating to bilateral lower extremities and feet. Pain is rated as 10/10. The patient currently on Neurontin 400 mg every 8 hours, Percocet 10/325 every 6 hours, baclofen 10 mg twice a day Patient denies any side effect of the medication , patient denies any excessive drowsiness or sleepiness, patient denies any suicidal ideation, Patient reported that the current medication is helping to control the pain and improve the activity of daily livings, including ability to cut wood Patient denies any motor or sensory deficit, denies any change in the bowel movement or urination, patient denies any fever or night sweats. Patient here today for follow-up visit and medication refill Review of systems is negative for chest pain, shortness of breath, new onset weakness, numbness/tingling, abdominal pain, malaise, fever, night sweats, chills, homicidal or suicidal ideation, or bowel or bladder incontinence. Objective Physical exam: Vitals: Reviewed in EMR GENERAL: Well appearing, in no acute distress PSYCH: Mood and affect is appropriate. Awake, alert, and oriented SKIN: Skin color, texture, turgor normal, no rashes or lesions HEENT: Normocephalic, atraumatic. EOM intact CV: No pedal edema RESP: Respirations are unlabored, no audible wheezing GI: Abdomen non-distended MUSCULOSKELETAL: Bilateral lower extremity strength is normal and symmetric. No atrophy or tone abnormalities are noted. Lumbar spine: Straight leg raising in the sitting position is positive on the left for radicular pain. Tenderness to palpation over the lumbar spine and paraspinous muscles, left greater than right. Extremities: Peripheral joint ROM is full and pain free without obvious instability or laxity in all four extremities. No edema or skin discolorations noted. NEUR: Bilateral lower extremity coordination and muscle stretch reflexes are physiologic and symmetric. Negative clonus bilaterally. No loss of sensation is noted. Assessment and Plan Plan: Assessment and plan= chronic low back pain secondary to lumbar degenerative disc disease , lumbar spondylosis with lumbar facet arthropathy . chronic and current use of high-risk medication (opioids) Patient denies any side effects of the current pain medication and the current treatment/medication helping the patient to do activity of daily living , Diagnoses, prognosis, treatment options, including but not limited to physical therapy, medication management, interventional therapies, and surgery, were discussed with the patient All the questions answered The narcotic consent was signed and patient agreed and understood the side effects and complications of opioid treatment. We had a lengthy discussion regarding long-term use of opioids, patient is very reluctant to reduce his meds. I told him that in the future, we will plan on reducing it in the summer. He is amenable to this plan. I will leave his prescriptions as is for the winter, given that his pain is worse in the winter. MAPS Reviewed and it was appropriate . We will repeat a lumbar MRI, last MRI was in 2016. He has not undergone transforaminal epidural steroid injections in the past, and would likely benefit from this. I also provided him a prescription for orthoticsat Bre. Medication managements= patient will be given prescription refills for Percocet 10/325 every 6 hours dispense 120 with one refill, Neurontin 400 mg every 8 hours dispense 90 with 1 refill baclofen 10 mg twice a day dispense 60 with 1 refill Objective - Vital Signs Vital signs: Vital Signs Temp Pulse 70 05/05/19 13:36 Resp 16 05/05/19 13:36 BP 145/92 05/05/19 13:36 Pulse Ox 98 05/05/19 13:36 PQRS Measure Charge Sheet Measure #130: Documentation of Current Meds in Medical Chart: Patient's medications documented in chart Measure #226: Tobacco Use: Screen & Cessation Intervention: Pt not a tobacco user Measure #111: Pneumonia Vaccination: Pneumococcal vaccine administered or previously received Measure #47: Advance Care Plan: Advance care planning discussed & documented, pt chose/unable to give Measure #412: Opioid Treatment Agreement: Documented signed opioid trtmnt agreemnt min once during opioid trtmnt Measure #408: Opioid Therapy Follow-up Evaluation: Patient had f/u eval minimum every 3 months during opioid therapy Measure #317: Preventitive Care & Scrn High Bld Press & F/U: Pre-hypertensive or hypertensive BP documented, pt will f/u with PCP Measure #128: Body Mass Index (BMI) Screening & Follow-up: BMI documented ABOVE normal parameters - f/u documented Measure #131: Pain Assessment & Follow-up: Pain positive & plan documented, Follow-up scheduled Measure #431: Unhealthy Alcohol Use Preventative Care & Scrn: Patient not identified as an unhealthy alcohol user PQRS Narrative: Smoking Status Former smoker Narcotic Agreement Date Signed 03/10/19 Blood Pressure 145/92 Pain Intensity [Lower Back] 10 Scale Used Numeric (1 - 10) Hx Alcohol Use (MH) No Home Medications: Ambulatory Orders Omeprazole 20 mg PO DAILY 02/03/16 Aspirin [Adult Low Dose Aspirin EC] 81 mg PO DAILY 03/20/16 Montelukast [Singulair] 10 mg PO HS 06/29/16 cloNIDine HCL [Catapres] 0.1 mg PO HS 12/19/17 Baclofen 10 mg PO BID #60 tablet 04/10/18 Gabapentin [Neurontin] 400 mg PO TID #90 cap 04/10/18 oxyCODONE HCL/ACETAMINOPHEN [Percocet 10-325 mg] 1 tab PO Q8HR PRN 30 Days #90 tab 04/10/18 Atorvastatin [Lipitor] 40 mg PO DAILY 07/30/18 Tiotropium [place] [Spiriva Respimat] 1 spray INHALATION RT-DAILY 10/18/18 busPIRone HCL 15 mg PO BID 10/18/18 metFORMIN HCL [Glucophage] 500 mg PO BID 10/18/18 Desvenlafaxine Succinate [Pristiq] 100 mg PO DAILY 12/13/18 Meclizine [Antivert] 25 mg PO TID PRN #20 tab 02/06/19 Lisinopril-Hctz 20-25 mg [Zestoretic 20-25] 1 tab PO DAILY 05/01/19 Metoclopramide [Reglan] 5 mg PO Q6HR 05/01/19 Controlled Substance Measures - Controlled Substance Measures Is patient prescribed a controlled substance at discharge?: Yes When asked, does pt state using other controlled substances?: No If prescribed controlled substance>3 days was MAPS reviewed?: Yes If Rx opioid, was Start Talking consent form obtained?: Yes If opioid is for acute pain is fill amount 7 days or less?: No Was information provided regarding opioid addiction?: Yes
== END | disposition home or self-care (01) ==
LOC: PNWHC3 12:37
PROVIDERS: ATTEND Anesthesiology
DX: M51.36 Other intervertebral disc degeneration, lumbar region (principal); M47.816 Spondylosis without myelopathy or radiculopathy, lumbar region; M46.96 Unspecified inflammatory spondylopathy, lumbar region; G89.29 Other chronic pain; Z87.891 Personal history of nicotine dependence; Z79.891 Long term (current) use of opiate analgesic; Z79.899 Other long term (current) drug therapy; Z79.82 Long term (current) use of aspirin; Z79.84 Long term (current) use of oral hypoglycemic drugs
CPT/HCPCS: 99211

== ENCOUNTER → 2019-05-17 | Outpatient (CLI) | payer OTHER | END | disposition home or self-care (01) | LOC: RADMRIMAIN 10:06 | PROVIDERS: ATTEND Anesthesiology | DX: Z53.9 Procedure and treatment not carried out, unspecified reason (principal) ==

== ENCOUNTER → 2019-06-30 | Outpatient (CLI) | payer OTHER ==
[2019-06-30 12:41] VITALS: BP 122/72; PULSE 69; RESP 20
--- NOTE | 2019-06-30 13:18 | P.PAINPG ---
Subjective Progress Note Date: 06/30/19 This is follow-up visit for this patient with a history of severe and chronic low back pain secondary to lumbar degenerative disc disease, lumbar spondylosis with facet arthropathy, The patient currently on Neurontin 400 mg every 8 hours, Percocet 10/325 every 6 hours, baclofen 10 mg twice a day Patient denies any side effect of the medication , patient denies any excessive drowsiness or sleepiness, patient denies any suicidal ideation, Patient reported that the current medication is helping to control the pain and improve the activity of daily livings, but he feels he has no benefit from Neurontin Patient denies any motor or sensory deficit, denies any change in the bowel movement or urination, patient denies any fever or night sweats. Patient here today for follow-up visit and medication refill Objective - Vital Signs Vital signs: Vital Signs Temp Pulse 69 06/30/19 12:34 Resp 20 06/30/19 12:34 BP 122/72 06/30/19 12:34 Pulse Ox 97 06/30/19 12:34 - Exam Physical Examinations : -Constitutiona : Cooperative , not in acute distress . -HEENT : nech : supple , no Lymphadenopathy , normal thyroid size . : eyes : no ptosis , no icterus, no photophobia . - neurologic : Cranial nerve II to XII intact , no focal neurological deffecit . -psychatric : alert , oriented X 3 , appropriate affect , intact judgment and insight . -Lymphatic : no Lymphadenopathy . - musculoskeltal : Lumber spine moter stegnth lower extremities ,thigh and legs 5/5 Right side , 5/5 Left side deep tendon reflexes : normal Knee Jerk , normal ankle Jerk lumber facet Loading Test =positive Right , positive Left Range of motion of the lumbar spine Flexion 30 degrees, extension 10 degrees strait leg raising test = positive at 60 degree Fabere test= positive Right , and positive LT . Patient had a new MRI of the lumbar spine done recently= L45 and L5-S1 bulging disc disease and L4 5 and L5-S1 lumbar facet arthropathy Assessment and Plan Plan: Assessment and plan= chronic low back pain secondary to lumbar degenerative disc disease , lumbar spondylosis with lumbar facet arthropathy . chronic and current use of high-risk medication (opioids) Patient denies any side effects of the current pain medication and the current treatment/medication helping the patient to do activity of daily living , Diagnoses, prognosis, treatment options, including but not limited to physical therapy, medication management, interventional therapies, and surgery, were discussed with the patient All the questions answered The narcotic consent was signed and patient agreed and understood the side effects and complications of opioid treatment. Patient signed the narcotic agreement, and was orally counseled, not to overuse, not to abuse, not to Divert , not tp sell pain medication, and to take it as prescribed only, Patient was counseled not to drive or operate heavy equipment while using narcotic medication, and advised not to use alcohol or any Illicit drugs while using the narcotis. understanding that lack of compliance with any of the above instructions, will likely to cause discharge from, the pain service, not to renew his narcotic prescriptions MAPS Reviwed and it was apropriate . Medication managements= patient will be given prescription refills for Percocet 10/325 every 6 hours when necessary dispense 120 with 1 refill, baclofen 10 mg twice a day dispense 60 with 1 refill, we'll discontinue Neurontin because patient had no benefit from it, start patient on Lyrica 50 mg 3 times a day dispense 90 with 1 refill. Interventions= patient will be good candidate to have a repeat RFA of the medial branch lumbar area L3, L4, L5 (to target the facet joint at L4 5, and L5-S1,) Right side First Urine drug screen done today , Time with Patient: Less than 30 PQRS Measure Charge Sheet Measure #130: Documentation of Current Meds in Medical Chart: Patient's medications documented in chart Measure #226: Tobacco Use: Screen & Cessation Intervention: Pt not a tobacco user Measure #111: Pneumonia Vaccination: Pneumococcal vaccine administered or previously received Measure #47: Advance Care Plan: Advance care planning discussed & documented, pt chose/unable to give Measure #412: Opioid Treatment Agreement: Documented signed opioid trtmnt agreemnt min once during opioid trtmnt Measure #408: Opioid Therapy Follow-up Evaluation: Patient had f/u eval minimum every 3 months during opioid therapy Measure #317: Preventitive Care & Scrn High Bld Press & F/U: Normal blood pressure, f/u not required Measure #128: Body Mass Index (BMI) Screening & Follow-up: BMI documented ABOVE normal parameters - f/u documented Measure #131: Pain Assessment & Follow-up: Pain positive & plan documented, Follow-up scheduled Measure #431: Unhealthy Alcohol Use Preventative Care & Scrn: Patient not identified as an unhealthy alcohol user PQRS Narrative: Smoking Status Former smoker Narcotic Agreement Date Signed 03/10/19 Blood Pressure 122/72 Pain Intensity [Lower Back] 6 Scale Used Numeric (1 - 10) Hx Alcohol Use (MH) No Home Medications: Ambulatory Orders Omeprazole 20 mg PO DAILY 02/03/16 Aspirin [Adult Low Dose Aspirin EC] 81 mg PO DAILY 03/20/16 Montelukast [Singulair] 10 mg PO HS 06/29/16 cloNIDine HCL [Catapres] 0.1 mg PO HS 12/19/17 Baclofen 10 mg PO BID #60 tablet 04/10/18 Gabapentin [Neurontin] 400 mg PO TID #90 cap 04/10/18 oxyCODONE HCL/ACETAMINOPHEN [Percocet 10-325 mg] 1 tab PO Q8HR PRN 30 Days #90 tab 04/10/18 Atorvastatin [Lipitor] 40 mg PO DAILY 07/30/18 Tiotropium [place] [Spiriva Respimat] 1 spray INHALATION RT-DAILY 10/18/18 busPIRone HCL 15 mg PO BID 10/18/18 metFORMIN HCL [Glucophage] 500 mg PO BID 10/18/18 Desvenlafaxine Succinate [Pristiq] 100 mg PO DAILY 12/13/18 Meclizine [Antivert] 25 mg PO TID PRN #20 tab 02/06/19 Lisinopril-Hctz 20-25 mg [Zestoretic 20-25] 1 tab PO DAILY 05/01/19 Metoclopramide [Reglan] 5 mg PO Q6HR 05/01/19 Controlled Substance Measures - Controlled Substance Measures Is patient prescribed a controlled substance at discharge?: Yes When asked, does pt state using other controlled substances?: No If prescribed controlled substance>3 days was MAPS reviewed?: Yes If Rx opioid, was Start Talking consent form obtained?: Yes If opioid is for acute pain is fill amount 7 days or less?: No Was information provided regarding opioid addiction?: Yes
== END | disposition home or self-care (01) ==
LOC: PNWHC3 12:05
PROVIDERS: ATTEND Specialist
DX: G89.29 Other chronic pain (principal); M51.36 Other intervertebral disc degeneration, lumbar region; M47.816 Spondylosis without myelopathy or radiculopathy, lumbar region; M46.96 Unspecified inflammatory spondylopathy, lumbar region; Z87.891 Personal history of nicotine dependence; Z79.82 Long term (current) use of aspirin; Z79.891 Long term (current) use of opiate analgesic; Z79.84 Long term (current) use of oral hypoglycemic drugs; Z79.899 Other long term (current) drug therapy
CPT/HCPCS: 80307; 99211

== ENCOUNTER 2019-07-21 08:15 | Day surgery (SDC) | payer OTHER ==
[2019-07-16 15:06] VITALS: BMI 31.1
[~2019-07-21 08:15] MED LIST changes: +LIDOCAINE 1% 20 ML VIAL (10MG/ML) FOR IV START INTRADERMA PRN
[2019-07-21 08:45] VITALS: RESP 18; TEMP 98.1
[2019-07-21 08:56] LABS: Glucose,Whole Blood 129 mg/dL (75-99)
[2019-07-21] MEDS ORDERED: ROPIVACAINE 5MG/ML 20ML VIAL ONE (10:04)
[2019-07-21] MEDS ORDERED: fentaNYL (PF) 50 MCG/ML 2 ML AMP ONE (10:04)
[2019-07-21] MEDS ORDERED: MIDAZOLAM 2 MG/2 ML VIAL ONE (10:04)
--- NOTE | 2019-07-21 10:23 | P.PCN ---
Date of Procedure: 07/21/19 Procedure(s) Performed: PREOPERATIVE DIAGNOSIS: 1-Lumbar Spondylosis with Facet Arthropathy without myelopathy. 2- Lumber degenerative disc disease POSTOPERATIVE DIAGNOSIS: 1- Lumbar Spondylosis with Facet Arthropathy without myelopathy. 2- Lumber degenerative disc disease PROCEDURES : Right Radiofrequency thermocoagulation, L3 , L4 , and L5 medial branch, with fluoroscopic guidance (fluoroscopy images available in the radiology department) ( to denervate the facet joint at L4-5 ,and L5-S1 levels ) ANESTHESIA: Moderate sedation with intravenous versed 2 mg and fentaneyl 100 mcg, and local infiltration with Ropivacaine 0.5 % . EBL: Minimal PROCEDURE INDICATION: The patient with low back pain secondary to lumbar facet arthropathy who had more than 50% relief of her pain with previous diagnostic lumbar medial branch block with bupivacaine. PROCEDURE DESCRIPTION / TECHNIQUE: The patient was seen and identified in the preoperative area. Risks, benefits, complications, including but not limited to risk of infection ,bleeding , allergic reactions to the medications and no complete pain releife , and alternatives were discussed with the patient, the patient agreed to proceed with the procedure and signed the consent. IV was started. Vital signs remained stable throughout the procedure. Patient was taken to the OR and time out was completed. The patient was placed in the prone position on the procedure table. The lumber area was prepped and draped in the usual sterile fashion. . Vital signs were closely monitored during the procedure .IV sedation was used during the procedure to decrease patients anxiety. Using AP and then oblique fluoroscopy, the ``eye of the Moses dog corresponding to the connection between the superior and transverse articular processes of right L3, L4, and L5 were identified, marked, and localized with 1% lidocaine. Subsequently, a [id number] radiofrequency cannula with a 10- mm active tip was advanced guided by fluoroscopy to each of the``eyes of the Moses dog at right L3, L4, and L5. Each site then underwent sensory testing at 50 Hz and 0 to 1 volt and motor testing at 2.5 Hz and 0 to 3 volt with local stimulation, but no radicular symptoms down the legs. Thereafter the right L3, L4 , and L5 sites underwent radiofrequency thermocoagulation at 80 degrees celsius for 90 seconds after injecting 0.5 ml of PF Ropivacaine 1ml, then after the thermocoagulation done , 1 ml of the block solution containing 3 ml of Ropivacaine 0.5% was injected at the right L3 , L4 , and L5 , levels after negative aspiration of CSF and blood and with no paresthesias. Cannulas were retracted while injecting lidocaine 1% until the needle is out. At the end of the procedure, the skin was cleansed and bandages were applied. COMPLICATIONS: No acute complications. DISPOSITION / PLANS: The patient was placed in a supine position and transferred to the recovery area in a stable condition for observation and was discharged from the recovery room after meeting discharge criteria. Home discha rge instructions given to the patient by the staff. The patient was reexamined prior to discharge. The patient will schedule a follow up in the clinic in 2-4 weeks.
[2019-07-21] MEDS ORDERED: IV FLUID CONTINUATION 1,000 ML IV ONE (10:27)
[2019-07-21 10:59] VITALS: BP 144/86; PULSE 83
--- NOTE | 2019-07-21 11:48 | FL ---
Fluoroscopy HISTORY: Pain 11 seconds fluoroscopy time supplied to the referring clinician. 3 intraoperative C-arm images docum ent the procedure. See dictated report from anesthesia.
== END 2019-07-21 11:00 | disposition home or self-care (01) ==
LOC: ORPAIN 08:15
PROVIDERS: ATTEND Specialist
DX: M47.816 Spondylosis without myelopathy or radiculopathy, lumbar region (principal); M51.36 Other intervertebral disc degeneration, lumbar region; Z88.8 Allergy status to other drugs, medicaments and biological substances
CPT/HCPCS: 64635; 64636; J2250; J3010; J2795; 99152

== ENCOUNTER → 2019-07-30 | Outpatient (CLI) | payer OTHER ==
[2019-07-30 11:50] VITALS: BP 144/78; PULSE 99; RESP 18
--- NOTE | 2019-07-30 12:24 | P.PAINPG ---
Subjective Progress Note Date: 07/30/19 Ferny is a 50-year-old gentleman was being treated for low back pain. He most recently had a rated frequency ablation of the lumbar spine about 10 days ago. He presents today for follow-up secondary to an abnormal urine drug screen. His last urine drug screen did not show any medications despite him saying that he took medications that day. I discussed with him the results and asked for him to give us a new urine sample on today's visit. The patient reports that he has not taken any medications in 1 week because he "wanted see how long I could go without them". He had previously told the nurse that he had taken it today, the answer change and asked for new urine sample on today's visit. The patient denies that he abuses the medication. He says he never takes them more than needed. He hasn't filled his prescription on 07/08/2019, and he reports she has not taken in 1 week. Therefore he should have about 2 weeks with the medication remaining. I discussed that with him and his . The appears to be questioning the patient's use of the medications, she feels he over uses the medications and is abusing them. 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 Straight leg raise is negative. Limited range of motion due to pain with flexion, extension and side bending. Sacroiliac joints: Nontender to palpation, SHIRLENE is negative, [place] negative Neuro exam: Normal sensation in bilateral upper extremities, deep tendon reflexes are 2+ bilateral upper extremities. Normal sensation in bilateral lower extremities. Deep tendon reflexes are 1+ in lower extremities Psych exam: Cooperative, appropriate mood Assessment and Plan Assessment: #1 lumbar spondylosis without myelopathy #2 chronic opioid use #3 opioid dependence #4 opioid use disorder. Plan: I've instructed the patient that he needs to bring back 50 tablets of Percocet 10 mg by tomorrow. He reports he has a medications at home. I've instructed him that if he does not furnish those medications by tomorrow to prove that he has not overuse the medication that we will no longer be able to write him tablets. I've also instructed him to give me a urine sample on today's visit. Urine sample was collected. I've reviewed her maps, has shows he filled 120 tablets of Percocet 10 mg on 07/08/2019. He does have another prescription from last month which have instructed him not to fill at this time. We need to ensure that he has not filled that new prescription before accepting his pill count. We also need to confirm the tablets that he brings and are actually Percocet. I'm very concerned with this patient's aberrant behavior. We will monitor his situation very closely and see if he furnishes the tablets tomorrow. PQRS Measure Charge Sheet Measure #130: Documentation of Current Meds in Medical Chart: Patient's medications documented in chart Measure #226: Tobacco Use: Screen & Cessation Intervention: Pt screened for tobacco use AND intervention given Measure #111: Pneumonia Vaccination: Pneumococcal vaccine administered or previously received Measure #47: Advance Care Plan: Advance care planning discussed & documented, plan or surrogate given Measure #412: Opioid Treatment Agreement: Documented signed opioid trtmnt agreemnt min once during opioid trtmnt Measure #408: Opioid Therapy Follow-up Evaluation: Patient had f/u eval minimum every 3 months during opioid therapy Measure #317: Preventitive Care & Scrn High Bld Press & F/U: Normal blood pressure, f/u not required Measure #128: Body Mass Index (BMI) Screening & Follow-up: BMI documented within normal parameters Measure #131: Pain Assessment & Follow-up: Pain positive & plan documented Measure #431: Unhealthy Alcohol Use Preventative Care & Scrn: Patient not identified as an unhealthy alcohol user PQRS Narrative: Smoking Status Former smoker Narcotic Agreement Date Signed 03/10/19 Blood Pressure 144/78 Pain Intensity [Back] 5 Scale Used Numeric (1 - 10) Hx Alcohol Use (MH) No Home Medications: Ambulatory Orders Omeprazole 20 mg PO DAILY 02/03/16 Aspirin [Adult Low Dose Aspirin EC] 81 mg PO DAILY 03/20/16 Montelukast [Singulair] 10 mg PO HS 06/29/16 cloNIDine HCL [Catapres] 0.1 mg PO HS 12/19/17 Baclofen 10 mg PO BID #60 tablet 04/10/18 oxyCODONE HCL/ACETAMINOPHEN [Percocet 10-325 mg] 1 tab PO Q8HR PRN 30 Days #90 tab 04/10/18 Atorvastatin [Lipitor] 40 mg PO DAILY 07/30/18 Tiotropium [place] [Spiriva Respimat] 1 spray INHALATION RT-DAILY 10/18/18 busPIRone HCL 15 mg PO BID 10/18/18 metFORMIN HCL [Glucophage] 500 mg PO BID 10/18/18 Desvenlafaxine Succinate [Pristiq] 100 mg PO DAILY 12/13/18 Meclizine [Antivert] 25 mg PO TID PRN #20 tab 02/06/19 Lisinopril-Hctz 20-25 mg [Zestoretic 20-25] 1 tab PO DAILY 05/01/19 Metoclopramide [Reglan] 5 mg PO Q6HR 05/01/19 Pregabalin [Lyrica] 50 mg PO TID 07/16/19 Controlled Substance Measures - Controlled Substance Measures Is patient prescribed a controlled substance at discharge?: No If prescribed controlled substance>3 days was MAPS reviewed?: Yes
== END | disposition home or self-care (01) ==
LOC: PNWHC3 11:35
PROVIDERS: ATTEND Hospitalist
DX: M47.816 Spondylosis without myelopathy or radiculopathy, lumbar region (principal); F11.20 Opioid dependence, uncomplicated; Z87.891 Personal history of nicotine dependence; Z79.82 Long term (current) use of aspirin; Z79.84 Long term (current) use of oral hypoglycemic drugs; Z79.899 Other long term (current) drug therapy
CPT/HCPCS: 80307; 99211

== ENCOUNTER 2019-08-04 06:50 | Day surgery (SDC) | payer OTHER ==
[2019-08-01 09:18] VITALS: BMI 29.0
[2019-08-04] MEDS ORDERED: LACTATED RINGERS 1,000 ML IV SCH (07:45)
[2019-08-04 08:00] VITALS: TEMP 98.1
[2019-08-04] MEDS ORDERED: LIDOCAINE 1% (10MG/ML) FOR IV START INTRADERMA ONE (08:11)
[2019-08-04 08:14] LABS: Glucose,Whole Blood 117 mg/dL (75-99)
[2019-08-04] MEDS ORDERED: ROPIVACAINE 5MG/ML 20ML VIAL ONE (08:17)
[2019-08-04] MEDS ORDERED: fentaNYL (PF) 50 MCG/ML 2 ML AMP ONE (08:17)
[2019-08-04] MEDS ORDERED: MIDAZOLAM 2 MG/2 ML VIAL ONE (08:17)
--- NOTE | 2019-08-04 08:22 | P.PCN ---
Date of Procedure: 08/04/19 Description of Procedure: Procedure(s) Performed: PREOPERATIVE DIAGNOSIS: 1. Lumbar Spondylosis with Facet Arthropathy without myelopathy. 2-. Lumber degenerative disc disease POSTOPERATIVE DIAGNOSIS: 1. Lumbar Spondylosis with Facet Arthropathy without myelopathy. 2-. Lumber degenerative disc disease PROCEDURES: Left Radiofrequency thermocoagulation, L4-L5, and L5-S1 medial branch, with fluoroscopic guidance SURGEON: Santos Sanchez M.D. ANESTHESIA: Moderate sedation with intravenous versed 2 mg and fentaneyl 100 mcg and local infiltration with lidocaine 1% 4 ml EBL: Minimal PROCEDURE INDICATION: The patient with low back pain secondary to lumbar facet arthropathy who had more than 50% relief of her pain with previous diagnostic lumbar medial branch block with bupivacaine. PROCEDURE DESCRIPTION / TECHNIQUE: The patient was seen and identified in the preoperative area. Risks, benefits, complications, including but not limited to risk of infection ,bleeding , allergic reactions to the medications and no complete pain releife , and alternatives were discussed with the patient, the patient agreed to proceed with the procedure and signed the consent. IV was started. Vital signs remained stable throughout the procedure. Patient was taken to the OR and time out was completed. The patient was placed in the prone position on the procedure table. The lumber area was prepped and draped in the usual sterile fashion. . Vital signs were closely monitored during the procedure .IV sedation was used during the procedure to decrease patients anxiety. Using AP and then oblique fluoroscopy, the ``eye of the Moses dog corresponding to the connection between the superior and transverse articular processes of Left L3, L4, and L5 were identified, marked, and localized with 1% lidocaine. Subsequently, a [id number] radiofrequency cannula with a 10-mm active tip was advanced guided by fluoroscopy to each of the ``eyes of the Moses dog at Left L3, L4, and L5. Each site then underwent sensory testing at 50 Hz and 0 to 1 volt and motor testing at 2.5 Hz and 0 to 3 volt with local stimulation, but no radicular symptoms down the legs. Thereafter the Left L4-5, and L5-S1 sites underwent radiofrequency thermocoagulation at 80 degrees celsius for 90 seconds after injecting 0.5 ml of PF lidocaine 1%. then After the thermocoagulation done , 1 ml of Ropivacaine 0.5% was injected at the Left L4-5 , and L5-S1, levels after negative aspiration of CSF and blood and with no paresthesias. Cannulas were retracted while injecting lidocaine 1% until the needle is out.. At the end of the procedure, the skin was cleansed and bandages were applied. COMPLICATIONS: No acute complications. DISPOSITION / PLANS: The patient was placed in a supine position and transferred to the recovery area in a stable condition for observation and was discharged from the recovery room after meeting discharge criteria. Home discharge instructions given to the patient by the staff. The patient was reexamined prior to discharge. The patient will schedule a follow up in the clinic in 2-4 weeks.
[2019-08-04] MEDS ORDERED: IV FLUID CONTINUATION 700 ML IV ONE (08:46)
[2019-08-04 08:52] VITALS: RESP 16
[2019-08-04 09:04] VITALS: BP 108/70; PULSE 67
--- NOTE | 2019-08-04 11:17 | FL ---
Fluoroscopy HISTORY: Pain 13 seconds fluoroscopy time supplied to the referring clinician. 3 intraoperative C-arm images docum ent the procedure. See dictated report from anesthesia.
== END 2019-08-04 09:08 | disposition home or self-care (01) ==
LOC: ORPAIN 06:50
PROVIDERS: ATTEND Anesthesiology
DX: M47.816 Spondylosis without myelopathy or radiculopathy, lumbar region (principal); M51.36 Other intervertebral disc degeneration, lumbar region; Z88.8 Allergy status to other drugs, medicaments and biological substances
CPT/HCPCS: 64635; 64636; J2250; J3010; J2795; 99152

== ENCOUNTER 2020-07-07 14:21 | Inpatient (IN) | payer MEDICAID, OTHER ==
[2020-07-07] MEDS ORDERED: SODIUM CHLORIDE 0.9% 500 ML 500 ML IV STA (14:30)
[2020-07-07 15:04] LABS: Basophils # (A) 0.1 k/uL (0-0.2); Basophils % (A) 1 %; Eosinophils # (A) 0.1 k/uL (0-0.7); Eosinophils % (A) 1 %; HCT 42.6 % (39.0-53.0); HGB 14.5 gm/dL (13.0-17.5); Lymphocytes # (A) 3.2 k/uL (1.0-4.8); Lymphocytes % (A) 23 %; MCH 30.4 pg (25.0-35.0); MCHC 34.1 g/dL (31.0-37.0); MCV 89.1 fL (80.0-100.0); Mean Platelet Volume 7.8; Monocytes # (A) 1.2 k/uL (0-1.0); Monocytes % (A) 9 %; Neutrophils # (A) 9.3 k/uL (1.3-7.7); Neutrophils % (A) 66 %; Platelet Count 301 k/uL (150-450); RBC 4.78 m/uL (4.30-5.90); RDW 14.9 % (11.5-15.5); WBC 14.1 k/uL (3.8-10.6)
[2020-07-07 15:12] LABS: ALT 41 U/L (4-49); AST 41 U/L (17-59); Acetaminophen <10.0 ug/mL; African American GFR (CKD) >90 (>60 ml/min/1.73 sqM); Albumin 4.9 g/dL (3.5-5.0); Alcohol <10 mg/dL; Alkaline Phosphatase 87 U/L (38-126); Anion Gap 9 mmol/L; Blood Urea Nitrogen 21 mg/dL (9-20); Calcium 9.9 mg/dL (8.4-10.2); Carbon Dioxide 26 mmol/L (22-30); Chloride 102 mmol/L (98-107); Creatine Kinase 167 U/L (55-170); Glucose 115 mg/dL (74-99); Magnesium 1.3 mg/dL (1.6-2.3); Non-African American GFR(CKD) 88 (>60 ml/min/1.73 sqM); Phosphorus 3.7 mg/dL (2.5-4.5); Potassium 3.9 mmol/L (3.5-5.1); Prothrombin Time 10.6 sec (9.0-12.0); Salicylate <1.0 mg/dL; Sodium 137 mmol/L (137-145); Total Bilirubin 0.4 mg/dL (0.2-1.3); Total Protein 7.8 g/dL (6.3-8.2)
[2020-07-07] MEDS ORDERED: MAGNESIUM SULFATE-D5W PMX 1 GM in DEXTROSE/WATER 1 100ML.BAG IVPB ONE (15:37)
--- NOTE | 2020-07-07 15:39 | ED ---
General Adult HPI - General Chief complaint: Overdose Stated complaint: Poss overdose Time Seen by Provider: 07/07/20 14:30 Source: patient, RN notes reviewed, old records reviewed Mode of arrival: ambulatory Limitations: no limitations - History of Present Illness Initial comments: 59-year-old male presents for overdose. Patient states that over that past 12 hours he took approximately 25-10 mg baclofen. He states this was not a suicide attempt. He states he was taking this for his back pain. His does indicate that he takes some benzodiazepines that were not prescribed to him. He denies physical complaints with the exception of chronic back pain. His been no vomiting. He has been pacing his house throughout the evening and night. He states that he last took baclofen at 3 AM. He is presenting for evaluation at 3 PM. No reported fever or vomiting. Patient is able to give history. - Related Data Home Medications Medication Instructions Recorded Confirmed Omeprazole 20 mg PO DAILY 02/03/16 08/01/19 Aspirin [Adult Low Dose Aspirin EC] 81 mg PO DAILY 03/20/16 08/01/19 Montelukast [Singulair] 10 mg PO HS 06/29/16 08/01/19 cloNIDine HCL [Catapres] 0.1 mg PO HS 12/19/17 08/01/19 Atorvastatin [Lipitor] 40 mg PO DAILY 07/30/18 08/01/19 Tiotropium [place] [Spiriva 1 spray INHALATION RT-DAILY 10/18/18 08/01/19 Respimat] busPIRone HCL 15 mg PO BID 10/18/18 08/01/19 metFORMIN HCL [Glucophage] 500 mg PO BID 10/18/18 08/01/19 Desvenlafaxine Succinate [Pristiq] 100 mg PO DAILY 12/13/18 08/01/19 Lisinopril-Hctz 20-25 mg 1 tab PO DAILY 05/01/19 08/01/19 [Zestoretic 20-25] Metoclopramide [Reglan] 5 mg PO Q6HR 05/01/19 08/01/19 Pregabalin [Lyrica] 50 mg PO TID 07/16/19 08/01/19 Previous Rx's Medication Instructions Recorded Baclofen 10 mg PO BID #60 tablet 04/10/18 oxyCODONE HCL/ACETAMINOPHEN 1 tab PO Q8HR PRN 30 Days #90 tab 04/10/18 [Percocet 10-325 mg] Meclizine [Antivert] 25 mg PO TID PRN #20 tab 02/06/19 Allergies Allergy/AdvReac Type Severity Reaction Status Date / Time birds Allergy Severe Wheezing, Uncoded 07/07/20 14:24 SOB steriods Allergy Neck Uncoded 07/07/20 14:24 Swelling, SOB Review of Systems ROS Statement: Those systems with pertinent positive or pertinent negative responses have been documented in the HPI. ROS Other: All systems not noted in ROS Statement are negative. Past Medical History Past Medical History: Asthma, CVA/TIA, Hyperlipidemia, Hypertension, Pneumonia Additional Past Medical History / Comment(s): Pt states he has been told he has had greater than 14 "strokes" behind his eyes,, neuropathy bilateral hands, gastroparesis, difficulty swallowing, hiatal hernia, mild gastritis, vertigo, lumbar pain (past fractured vertebrae). History of Any Multi-Drug Resistant Organisms: None Reported Past Surgical History: Appendectomy, Hernia Repair, Orthopedic Surgery Additional Past Surgical History / Comment(s): Umbilical hernia repair, R inguinal hernia repair as an infant, R rotator cuff repair, pain clinic proce dures, circumcism, EGD, colonoscopy. Past Anesthesia/Blood Transfusion Reactions: No Reported Reaction Past Psychological History: Anxiety, Depression Smoking Status: Never smoker Past Alcohol Use History: None Reported Past Drug Use History: None Reported - Past Family History Father Family Medical History: Cancer Additional Family Medical History / Comment(s): Father is 80 some years old and recently found that his pancreatic cancer has recurred. Mother Family Medical History: Hypertension General Exam Limitations: no limitations General appearance: alert, appears intoxicated Head exam: Present: atraumatic, normocephalic Eye exam: Present: PERRL (Pupils are 6 mm bilaterally, reactive) ENT exam: Present: normal exam Neck exam: Present: normal inspection. Absent: tenderness, meningismus Respiratory exam: Present: normal lung sounds bilaterally. Absent: respiratory distress, wheezes Cardiovascular Exam: Present: regular rate, normal rhythm GI/Abdominal exam: Present: soft. Absent: distended, tenderness, guarding Extremities exam: Present: normal inspection, normal capillary refill Neurological exam: Present: alert, CN II-XII intact. Absent: motor sensory deficit Psychiatric exam: Present: normal affect, normal mood Skin exam: Present: warm, dry, intact. Absent: cyanosis, diaphoretic Course Vital Signs 07/07/20 07/07/20 14:24 17:44 Temperature 98.4 F Pulse Rate 83 86 Respiratory 18 16 Rate Blood Pressure 175/106 149/89 O2 Sat by Pulse 96 99 Oximetry - Reevaluation(s) Reevaluation #1: 07/07/20 15:49 Case discussed with poison control, medically cleared for EPS evaluation. EKG Findings - EKG Comments: EKG Findings:: EKG normal sinus rhythm, rate of 79, PA intervals 124, QRS duration 76, QTC 444 Medical Decision Making - Medical Decision Making Patient medically cleared and evaluated by EPS. He will be admitted to this institution for further psychiatric evaluation and treatment. I did complete the medical certification on this patient. - Lab Data Result diagrams: 07/07/20 14:50 07/07/20 14:50 Lab Results 07/07/20 07/07/20 07/07/20 Range/Units 14:50 14:50 14:50 WBC 14.1 H (3.8-10.6) k/uL RBC 4.78 (4.30-5.90) m/uL Hgb 14.5 (13.0-17.5) gm/dL Hct 42.6 (39.0-53.0) % MCV 89.1 (80.0-100.0) fL MCH 30.4 (25.0-35.0) pg MCHC 34.1 (31.0-37.0) g/dL RDW 14.9 (11.5-15.5) % Plt Count 301 (150-450) k/uL MPV 7.8 Neutrophils % 66 % Lymphocytes % 23 % Monocytes % 9 % Eosinophils % 1 % Basophils % 1 % Neutrophils # 9.3 H (1.3-7.7) k/uL Lymphocytes # 3.2 (1.0-4.8) k/uL Monocytes # 1.2 H (0-1.0) k/uL Eosinophils # 0.1 (0-0.7) k/uL Basophils # 0.1 (0-0.2) k/uL PT 10.6 (9.0-12.0) sec INR 1.0 (<1.2) Sodium 137 (137-145) mmol/L Potassium 3.9 (3.5-5.1) mmol/L Chloride 102 (98-107) mmol/L Carbon Dioxide 26 (22-30) mmol/L Anion Gap 9 mmol/L BUN 21 H (9-20) mg/dL Creatinine 0.95 (0.66-1.25) mg/dL Est GFR (CKD-EPI)AfAm >90 (>60 ml/min/1.73 sqM) Est GFR (CKD-EPI)NonAf 88 (>60 ml/min/1.73 sqM) Glucose 115 H (74-99) mg/dL Plasma Lactic Acid Hugo (0.7-2.0) mmol/L Calcium 9.9 (8.4-10.2) mg/dL Phosphorus 3.7 (2.5-4.5) mg/dL Magnesium 1.3 L (1.6-2.3) mg/dL Total Bilirubin 0.4 (0.2-1.3) mg/dL AST 41 (17-59) U/L ALT 41 (4-49) U/L Alkaline Phosphatase 87 (38-126) U/L Creatine Kinase 167 (55-170) U/L Total Protein 7.8 (6.3-8.2) g/dL Albumin 4.9 (3.5-5.0) g/dL Salicylates <1.0 mg/dL Acetaminophen <10.0 ug/mL Serum Alcohol <10 mg/dL 07/07/20 Range/Units 14:50 WBC (3.8-10.6) k/uL RBC (4.30-5.90) m/uL Hgb (13.0-17.5) gm/dL Hct (39.0-53.0) % MCV (80.0-100.0) fL MCH (25.0-35.0) pg MCHC (31.0-37.0) g/dL RDW (11.5-15.5) % Plt Count (150-450) k/uL MPV Neutrophils % % Lymphocytes % % Monocytes % % Eosinophils % % Basophils % % Neutrophils # (1.3-7.7) k/uL Lymphocytes # (1.0-4.8) k/uL Monocytes # (0-1.0) k/uL Eosinophils # (0-0.7) k/uL Basophils # (0-0.2) k/uL PT (9.0-12.0) sec INR (<1.2) Sodium (137-145) mmol/L Potassium (3.5-5.1) mmol/L Chloride (98-107) mmol/L Carbon Dioxide (22-30) mmol/L Anion Gap mmol/L BUN (9-20) mg/dL Creatinine (0.66-1.25) mg/dL Est GFR (CKD-EPI)AfAm (>60 ml/min/1.73 sqM) Est GFR (CKD-EPI)NonAf (>60 ml/min/1.73 sqM) Glucose (74-99) mg/dL Plasma Lactic Acid Hugo 1.4 (0.7-2.0) mmol/L Calcium (8.4-10.2) mg/dL Phosphorus (2.5-4.5) mg/dL Magnesium (1.6-2.3) mg/dL Total Bilirubin (0.2-1.3) mg/dL AST (17-59) U/L ALT (4-49) U/L Alkaline Phosphatase (38-126) U/L Creatine Kinase (55-170) U/L Total Protein (6.3-8.2) g/dL Albumin (3.5-5.0) g/dL Salicylates mg/dL Acetaminophen ug/mL Serum Alcohol mg/dL Disposition Clinical Impression: Drug overdose, Suicide attempt by multiple drug overdose Disposition: ADMITTED IP TO THIS [facility] Condition: Stable Is patient prescribed a controlled substance at d/c from ED?: No Referrals: Fabiana Monroy MD [Primary Care Provider] - 1-2 days Decision to Admit Reason: Admit from EC Decision Date: 07/07/20 Decision Time: 17:58
[2020-07-07] MEDS ORDERED: MAGNESIUM HYDROXIDE 2,400 MG/10 ML CUP PO PRN (19:53)
[2020-07-07] MEDS ORDERED: MAG HYDROX/AL HYDROX/SIMETH 30 ML CUP PO PRN (19:53)
[2020-07-07] MEDS: MONTELUKAST 10 MG TAB PO SCH (20:46)
[2020-07-07] MEDS: busPIRone HCl 5 MG TAB PO SCH (20:47)
[2020-07-07] MEDS: ATORVASTATIN 40 MG TAB PO SCH (20:47)
[2020-07-07] MEDS: metFORMIN 500 MG TAB PO SCH (20:48)
[2020-07-07] MEDS: cloNIDine HCL 0.1 MG TAB PO SCH (20:48)
[2020-07-07] MEDS: LORazepam 1 MG TAB PO PRN (21:59)
[2020-07-08] MEDS: METOCLOPRAMIDE 5 MG TAB PO SCH ×4 (01:20→17:37)
[2020-07-08 07:49] LABS: Glucose,Whole Blood 101 mg/dL (75-99)
[2020-07-08] MEDS: metFORMIN 500 MG TAB PO SCH ×2 (08:48→17:37)
[2020-07-08] MEDS: PANTOPRAZOLE 40 MG TABLET PO SCH (08:48)
[2020-07-08] MEDS: busPIRone HCl 5 MG TAB PO SCH ×2 (08:48→21:01)
[2020-07-08] MEDS: LISINOPRIL-HCTZ 20-25 MG 1 EACH TAB PO SCH (08:48)
[2020-07-08] MEDS: LORazepam 1 MG TAB PO PRN (08:49)
[2020-07-08] MEDS: ACETAMINOPHEN TAB 325 MG TAB PO PRN ×4 (08:49→21:30)
[2020-07-08] MEDS ORDERED: DESVENLAFAXINE SUCCINATE 50 MG TAB.ER.24H PO SCH (09:00)
[2020-07-08 09:29] LABS: Basophils # (A) 0.1 k/uL (0-0.2); Basophils % (A) 1 %; Eosinophils # (A) 0.1 k/uL (0-0.7); Eosinophils % (A) 1 %; HCT 44.4 % (39.0-53.0); HGB 14.8 gm/dL (13.0-17.5); Lymphocytes # (A) 3.5 k/uL (1.0-4.8); Lymphocytes % (A) 33 %; MCH 30.3 pg (25.0-35.0); MCHC 33.3 g/dL (31.0-37.0); MCV 90.9 fL (80.0-100.0); Mean Platelet Volume 8.1; Monocytes # (A) 0.8 k/uL (0-1.0); Monocytes % (A) 8 %; Neutrophils # (A) 5.9 k/uL (1.3-7.7); Neutrophils % (A) 56 %; Platelet Count 304 k/uL (150-450); RBC 4.88 m/uL (4.30-5.90); WBC 10.6 k/uL (3.8-10.6)
[2020-07-08 09:42] LABS: Albumin 4.9 g/dL (3.5-5.0); Calcium 10.2 mg/dL (8.4-10.2); Magnesium 1.6 mg/dL (1.6-2.3); Potassium 4.1 mmol/L (3.5-5.1); Total Bilirubin 0.8 mg/dL (0.2-1.3); Total Protein 7.8 g/dL (6.3-8.2)
--- NOTE | 2020-07-08 12:04 | P.HP ---
Psychiatric H&P - . H&P Date: 07/08/20 History & Physical: Allergies Allergy/AdvReac Type Severity Reaction Status Date / Time birds Allergy Severe Wheezing, Uncoded 07/07/20 18:09 SOB steriods Allergy Neck Uncoded 07/07/20 18:09 Swelling, SOB Vital Signs Temp 98 F 07/08/20 06:35 Pulse 116 H 07/08/20 08:52 Resp 16 07/08/20 06:35 BP 135/90 07/08/20 08:52 Pulse Ox 95 07/07/20 20:24 Intake & Output 07/07/20 07/08/20 07/08/20 18:59 06:59 18:59 Weight 95.254 kg 95.708 kg Laboratory Last Values WBC 10.6 k/uL (3.8-10.6) 07/08/20 08:38 RBC 4.88 m/uL (4.30-5.90) 07/08/20 08:38 Hgb 14.8 gm/dL (13.0-17.5) 07/08/20 08:38 Hct 44.4 % (39.0-53.0) 07/08/20 08:38 MCV 90.9 fL (80.0-100.0) 07/08/20 08:38 MCH 30.3 pg (25.0-35.0) 07/08/20 08:38 MCHC 33.3 g/dL (31.0-37.0) 07/08/20 08:38 RDW 15.0 % (11.5-15.5) 07/08/20 08:38 Plt Count 304 k/uL (150-450) 07/08/20 08:38 MPV 8.1 07/08/20 08:38 Neutrophils % 56 % 07/08/20 08:38 Lymphocytes % 33 % 07/08/20 08:38 Monocytes % 8 % 07/08/20 08:38 Eosinophils % 1 % 07/08/20 08:38 Basophils % 1 % 07/08/20 08:38 Neutrophils # 5.9 k/uL (1.3-7.7) 07/08/20 08:38 Lymphocytes # 3.5 k/uL (1.0-4.8) 07/08/20 08:38 Monocytes # 0.8 k/uL (0-1.0) 07/08/20 08:38 Eosinophils # 0.1 k/uL (0-0.7) 07/08/20 08:38 Basophils # 0.1 k/uL (0-0.2) 07/08/20 08:38 PT 10.6 sec (9.0-12.0) 07/07/20 14:50 INR 1.0 (<1.2) 07/07/20 14:50 Sodium 138 mmol/L (137-145) 07/08/20 08:38 Potassium 4.1 mmol/L (3.5-5.1) 07/08/20 08:38 Chloride 98 mmol/L (98-107) 07/08/20 08:38 Carbon Dioxide 30 mmol/L (22-30) 07/08/20 08:38 Anion Gap 10 mmol/L 07/08/20 08:38 BUN 18 mg/dL (9-20) 07/08/20 08:38 Creatinine 1.08 mg/dL (0.66-1.25) 07/08/20 08:38 Est GFR (CKD-EPI)AfAm 86 (>60 ml/min/1.73 sqM) 07/08/20 08:38 Est GFR (CKD-EPI)NonAf 75 (>60 ml/min/1.73 sqM) 07/08/20 08:38 Glucose 130 mg/dL (74-99) H 07/08/20 08:38 POC Glucose (mg/dL) 101 mg/dL (75-99) H 07/08/20 07:46 POC Glu Party Director ID Kasey Tyson 07/08/20 07:46 Plasma Lactic Acid Hugo 1.4 mmol/L (0.7-2.0) 07/07/20 14:50 Calcium 10.2 mg/dL (8.4-10.2) 07/08/20 08:38 Phosphorus 3.7 mg/dL (2.5-4.5) 07/07/20 14:50 Magnesium 1.6 mg/dL (1.6-2.3) 07/08/20 08:38 Total Bilirubin 0.8 mg/dL (0.2-1.3) 07/08/20 08:38 AST 39 U/L (17-59) 07/08/20 08:38 ALT 42 U/L (4-49) 07/08/20 08:38 Alkaline Phosphatase 99 U/L (38-126) 07/08/20 08:38 Creatine Kinase 167 U/L (55-170) 07/07/20 14:50 Total Protein 7.8 g/dL (6.3-8.2) 07/08/20 08:38 Albumin 4.9 g/dL (3.5-5.0) 07/08/20 08:38 Triglycerides 183 mg/dL (<150) H 07/08/20 08:38 Cholesterol 146 mg/dL (<200) 07/08/20 08:38 LDL Cholesterol, Calc 38 mg/dL (0-99) 07/08/20 08:38 HDL Cholesterol 71 mg/dL (40-60) H 07/08/20 08:38 TSH 1.810 mIU/L (0.465-4.680) 07/08/20 08:38 Salicylates <1.0 mg/dL 07/07/20 14:50 Acetaminophen <10.0 ug/mL 07/07/20 14:50 Serum Alcohol <10 mg/dL 07/07/20 14:50 Coronavirus (PCR) Not Detected (Not Detectd) 07/07/20 18:53 07/08/20 11:51 IDENTIFYING DATA: Patient is a , retired, 59-year-old male who presented to the emergency department for intentional overdose. HPI: Patient presented to the hospital on 07/07/2020 brought in by the ambulance for intentional overdose. The patient reportedly has been taking 25 - 10 mg tablets of baclofen along with benzodiazepines that were not prescribed to him intentionally over the past 12 hours. The patient reports that he was taking all these pills in order to manage his back pain and elevated anxiety. The patient was petitioned by his for concern of this overdose and he certified by the emergency room physician. On evaluation, the patient states that he has been feeling increasingly depressed and anxious for years but has been getting worse since this past February. The patient reports that his father due to cancer this past [place]. The patient further reports other stressors including the recent passing of his dog of 14 years 1 month ago. He endorses significant symptoms of depression including crying episodes multiple times per week, helplessness, anhedonia (reports that he no longer enjoys fishing/hunting), decreased appetite, and very little sleep. He vehemently denies that there was any intention to take his life and denies any prior attempts at suicide. He is currently not reporting any suicidal or homicidal ideation, intention, and/or plan. He does report significant anxiety. He states that he is constantly worrying or feels extremely wound up. He is unable to identify any particular stressor at this preoccupied and his worried thoughts. He reports that he just worries about everything. He denies any significant symptoms of bipolar disorder. He denies any flight of ideas, racing thoughts, or increased goal-directed behavior. In regards to psychotic symptoms, the patient does not endorse any history of psychosis. She reports no auditory or visual hallucinations. He denies any paranoia or delusions. There is also concern that the patient is reportedly medication seeking and has been taking and using his 's Xanax that was not prescribed to him. PAST PSYCHIATRIC HISTORY: Patient states that he has a history of depression and anxiety. His home psychotropic medications include Pristiq and BuSpar. He states that he was also taking Xanax. Patient denies any previous psychiatric h ospitalizations. He is currently prescribed his psychotropic medications through his primary care provider. Patient denies any history of suicide attempts in the past. PMH: Past Medical History: Asthma, CVA/TIA, Hyperlipidemia, Hypertension, Pneumonia Additional Past Medical History / Comment(s): Pt states he has been told he has had greater than 14 "strokes" behind his eyes,, neuropathy bilateral hands, gastroparesis, difficulty swallowing, hiatal hernia, mild gastritis, vertigo, lumbar pain (past fractured vertebrae). Patient reports a history of head trauma in 1999. History of Any Multi-Drug Resistant Organisms: None Reported Past Surgical History: Appendectomy, Hernia Repair, Orthopedic Surgery Additional Past Surgical History / Comment(s): Umbilical hernia repair, R inguinal hernia repair as an infant, R rotator cuff repair, pain clinic procedures, circumcism, EGD, colonoscopy. Past Anesthesia/Blood Transfusion Reactions: No Reported Reaction ALLERGIES: Steroids CHEMICAL DEPENDENCY HISTORY: Patient denies any tobacco, alcohol, marijuana, or illicit drug use. FAMILY PSYCHIATRIC/SUBSTANCE USE HISTORY: Patient reports no significant family history of psychiatric illness or substance abuse. SOCIAL HISTORY: Patient was born and raised in [place], [place]. His father recently this past February. His father lives down the street from him and he was very close to him. He is currently to his Solange for 39 years. They have a 40-year-old adopted daughter. He has a brother and a sister. 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 His dog recently one month ago. He denies any legal problems. MENTAL STATUS EXAM: General Appearance: Patient appears to be stated age is alert, directable, and attempts to cooperate. Patient appears to have fair hygiene and grooming. Behavior: Patient is seated without any agitated behavior. Eye contact is appropriate. Patient is appropriately tearful when talking about his father. Speech: Patient's speech is fluent and nonpressured. Spontaneous, with normal rate, volume, and tone. Mood/Affect: Patient reports their mood is depressed and anxious, affect is congruent and constricted. Suicidality/Homicidality: Patient vehemently denies any suicidal or homicidal ideation, intention, and/or plan. Perceptions: Patient denies any auditory or visual hallucinations. Though content/process: There is no evidence of any delusional thought content and thought process is linear and goal-directed. Memory and concentration: AOX3, grossly intact for the purposes of this session. Can spell "WORLD" backwards Judgment and insight: poor STRENGTHS/WEAKNESSES: Strength is that the patient is stable financially, is , and has housing. Weakness is that patient has a history of head trauma and medication seeking behavior. INTELLECT: Average to below average. IMPRESSIONS: Major depressive disorder, recurrent, severe Generalized anxiety disorder Benzodiazepine abuse PLAN: -Patient is admitted under involuntary status to [facility] for stabilization of psychiatric symptoms and safety. Patient was converted to a voluntary admission. Patient signed adult voluntary form and medication consent and is placed in patient's chart. -Medications : We will gradually taper the patient's Pristiq due to possible interaction with the patient's prescribe Reglan, high blood pressure, and lack of efficacy as described by the patient. We will start Remeron 7.5 mg by mouth at bedtime to address insomnia, depression, and lack of appetite. Continue BuSpar 15 mg by mouth twice a day for anxiety -We will hold the PRN ativan at this time for concern for falls as well as abuse. -Patient was counselled on substance abuse and desired to cut back on use -Patient was informed of the risks, benefits and side effects of the medication and patient verbally consented to taking the medications. Patient signed med consent form and was placed in chart. -Internal Medicine consult to perform medical evaluation and physical. -SW on board for discharge planning. Encourage patient to participate in groups to work on coping skills.
[2020-07-08 12:35] LABS: Glucose,Whole Blood 98 mg/dL (75-99)
[2020-07-08] MEDS ORDERED: IBUPROFEN 400 MG TAB PO STA (13:49)
[2020-07-08 17:39] LABS: Glucose,Whole Blood 92 mg/dL (75-99)
[2020-07-08 20:31] LABS: Glucose,Whole Blood 113 mg/dL (75-99)
[2020-07-08] MEDS: ATORVASTATIN 40 MG TAB PO SCH (21:00)
[2020-07-08] MEDS ORDERED: MIRTAZAPINE 15 MG TAB PO SCH (21:00)
[2020-07-08] MEDS: MONTELUKAST 10 MG TAB PO SCH (21:01)
[2020-07-08] MEDS: cloNIDine HCL 0.1 MG TAB PO SCH (21:01)
[2020-07-08] MEDS ORDERED: IBUPROFEN 400 MG TAB PO PRN (21:49)
--- NOTE | 2020-07-08 21:49 | P.CONS ---
History of Present Illness - History of Present Illness This is a pleasant 59 years old male with past medical history of asthma, CVA /TIA, hyperlipidemia, hypertension and gastroparesis, hiatal hernia, vertigo, chronic low back pain. He was admitted to the mental health unit for signs and symptoms of anxiety and depression. Medical consult has been requested for routine general medical evaluation as per protocol Patient was seen walking in his room normally. He is fully awake and oriented. He denies any symptoms except from low back pain which is a chronic for many years as per patient, he denies weakness or numbness. No chest pain or dyspnea. No fever. No change in urine or bowel habits. Labs including CBC and BMP And liver enzymes are unremarkable. Vitals are stable. Review of Systems CONSTITUTIONAL: No fever, no malaise, no fatigue. HEENT: No recent visual problems or hearing problems. Denied any sore throat. CARDIOVASCULAR: No orthopnea, PND, no palpitations, no syncope. PULMONARY: No shortness of breath, no cough, no hemoptysis. GASTROINTESTINAL: No diarrhea, no nausea, no vomiting, no abdominal pain. Normoactive bowel sounds. NEUROLOGICAL: No headaches, no weakness, no numbness. HEMATOLOGICAL: Denies any bleeding or petechiae. GENITOURINARY: Denies any burning micturition, frequency, or urgency. MUSCULOSKELETAL/RHEUMATOLOGICAL: Denies any joint pain, swelling, or any muscle pain. ENDOCRINE: Denies any polyuria or polydipsia. Past Medical History Past Medical History: Asthma, CVA/TIA, Hyperlipidemia, Hypertension, Pneumonia Additional Past Medical History / Comment(s): Pt states he has been told he has had greater than 14 "strokes" behind his eyes,, neuropathy bilateral hands, gastroparesis, difficulty swallowing, hiatal hernia, mild gastritis, vertigo, lumbar pain (past fractured vertebrae). History of Any Multi-Drug Resistant Organisms: None Reported Past Surgical History: Appendectomy, Hernia Repair, Orthopedic Surgery Additional Past Surgical History / Comment(s): Umbilical hernia repair, R inguin al hernia repair as an , R rotator cuff repair, pain clinic procedures, circumcism, EGD, colonoscopy. Past Anesthesia/Blood Transfusion Reactions: No Reported Reaction Past Psychological History: Anxiety, Depression Additional Psychological History / Comment(s): . Smoking Status: Never smoker Past Alcohol Use History: None Reported Additional Past Alcohol Use History / Comment(s): STARTED SMOKING AT AGE 18 SMOKED 1PPD, Quit Smoking 05/11. Past Drug Use History: Prescription Drug Abuse Additional Drug Use History / Comment(s): . - Past Family History Father Family Medical History: Cancer Additional Family Medical History / Comment(s): Father is 80 some years old and recently found that his pancreatic cancer has recurred. Mother Family Medical History: Hypertension Medications and Allergies Home Medications Medication Instructions Recorded Confirmed Type RX: Omeprazole 20 mg PO DAILY 02/03/16 07/07/20 History RX: Montelukast [Singulair] 10 mg PO HS 06/29/16 07/07/20 History RX: cloNIDine HCL [Catapres] 0.1 mg PO HS 12/19/17 07/07/20 History RX: Atorvastatin [Lipitor] 40 mg PO HS 07/30/18 07/07/20 History RX: busPIRone HCL 15 mg PO BID 10/18/18 07/07/20 History RX: metFORMIN HCL [Glucophage] 500 mg PO BID 10/18/18 07/07/20 History RX: Desvenlafaxine Succinate 100 mg PO DAILY 12/13/18 07/07/20 History [Pristiq] Lisinopril-Hctz 20-25 mg 1 tab PO DAILY 05/01/19 07/07/20 History [Zestoretic 20-25] Metoclopramide [Reglan] 5 mg PO Q6HR 05/01/19 07/07/20 History RX: Baclofen 10 mg PO TID 07/07/20 07/07/20 History Allergies Allergy/AdvReac Type Severity Reaction Status Date / Time birds Allergy Severe Wheezing, Uncoded 07/07/20 18:09 SOB steriods Allergy Neck Uncoded 07/07/20 18:09 Swelling, SOB Physical Exam Vitals: Vital Signs Temp Pulse Pulse Pulse Resp BP BP 07/08/20 13:20 98.0 F 07/08/20 08:52 116 H 07/08/20 06:35 98 F 80 16 133/80 07/07/20 22:01 107 H 157/91 07/07/20 20:50 112 H 175/104 07/07/20 20:24 97.8 F 105 H 18 07/07/20 17:44 86 16 149/89 07/07/20 14:24 98.4 F 83 18 175/106 BP Pulse Ox 07/08/20 13:20 07/08/20 08:52 135/90 07/08/20 06:35 07/07/20 22:01 07/07/20 20:50 07/07/20 20:24 170/105 95 07/07/20 17:44 99 07/07/20 14:24 96 Intake and Output 07/07/20 07/08/20 07/08/20 22:59 06:59 14:59 Other: Weight 95.708 kg GENERAL: The patient is alert and oriented x3, not in any acute distress. Well developed, well nourished. HEENT: Pupils are round and equally reacting to light. EOMI. No scleral icterus. No conjunctival pallor. Normocephalic, atraumatic. No pharyngeal erythema. No thyromegaly. CARDIOVASCULAR: S1 and S2 present. No murmurs, rubs, or gallops. PULMONARY: Chest is clear to auscultation, no wheezing or crackles. ABDOMEN: Soft, nontender, nondistended, normoactive bowel sounds. No palpable organomegaly. MUSCULOSKELETAL: No joint swelling or deformity. EXTREMITIES: No cyanosis, clubbing, or pedal edema. NEUROLOGICAL: Gross neurological examination did not reveal any focal deficits. SKIN: No rashes. No petechiae Results CBC & Chem 7: 07/08/20 08:38 07/08/20 08:38 Labs: Abnormal Lab Results - Last 24 Hours (Table) 07/07/20 07/07/20 07/08/20 Range/Units 14:50 14:50 07:46 WBC 14.1 H (3.8-10.6) k/uL Neutrophils # 9.3 H (1.3-7.7) k/uL Monocytes # 1.2 H (0-1.0) k/uL BUN 21 H (9-20) mg/dL Glucose 115 H (74-99) mg/dL POC Glucose (mg/dL) 101 H (75-99) mg/dL Magnesium 1.3 L (1.6-2.3) mg/dL Triglycerides (<150) mg/dL HDL Cholesterol (40-60) mg/dL 07/08/20 Range/Units 08:38 WBC (3.8-10.6) k/uL Neutrophils # (1.3-7.7) k/uL Monocytes # (0-1.0) k/uL BUN (9-20) mg/dL Glucose 130 H (74-99) mg/dL POC Glucose (mg/dL) (75-99) mg/dL Magnesium (1.6-2.3) mg/dL Triglycerides 183 H (<150) mg/dL HDL Cholesterol 71 H (40-60) mg/dL Assessment and Plan Assessment: -Depression and other psychiatric illnesses, management as per psych primary team -Type 2 diabetes mellitus, continue with metformin and monitor glucose -Hyperlipidemia, continue with Lipitor -Hypertension, continue with the clonidine and lisinopril-HCTZ, blood pressure is controlled -History of asthma, not in active tissue. Continue with singulair -history of gastroparesis and hiatal hernia, continue with omeprazole -Chronic low back pain, symptomatic treatment and follow-up as an outpatient DVT prophylaxis: No need for anticoagulation, low risk. Patient is mobile We recommend patient follow up with his PCP in one week after discharge, patient was instructed to this. Thank you for consulting us, we will see the patient on as needed basis. Please feel to contact us for any further question
[2020-07-09] MEDS: METOCLOPRAMIDE 5 MG TAB PO SCH ×5 (00:15→23:50)
[2020-07-09] MEDS: ACETAMINOPHEN TAB 325 MG TAB PO PRN (04:40)
[2020-07-09 07:46] LABS: Glucose,Whole Blood 102 mg/dL (75-99)
[2020-07-09] MEDS: PANTOPRAZOLE 40 MG TABLET PO SCH (08:42)
[2020-07-09] MEDS: metFORMIN 500 MG TAB PO SCH ×2 (08:43→17:47)
[2020-07-09] MEDS: busPIRone HCl 5 MG TAB PO SCH (08:43)
[2020-07-09] MEDS: LISINOPRIL-HCTZ 20-25 MG 1 EACH TAB PO SCH (08:43)
[2020-07-09] MEDS ORDERED: DESVENLAFAXINE SUCCINATE 50 MG TAB.ER.24H PO SCH (09:00)
--- NOTE | 2020-07-09 10:43 | P.PN ---
Progress Note - Text Progress Note Date: 07/09/20 Interval History: Patient was seen attending group and was directable and agreeable to speak with specifications writer in the office. Patient reports that he feels "not so good." He states that he has been having difficulty sleeping and has been noted by staff to only sleep for 4-1/2 hours. The patient states that his sleep was constantly interrupted as he would wake up in the middle of the night multiple times. He does endorse elevated anxiety. He describes feelings of general unease. He is not reporting any suicidal or homicidal ideation, intention, and/or plan. He is not reporting any auditory or visual hallucinations. He has been adherent with his medications and is not reporting any significant side effects. He has been attending groups and engaging in milieu activities. Mental Status Exam: General Appearance: Patient appears to be stated age is alert, directable, and cooperative. Good hygiene and grooming. He is wearing glasses. Behavior: Patient is calmly seated without any agitated behavior. Normal psychomotor activity. Eye contact is fair. Speech: Patient's speech is fluent and nonpressured. Spontaneous, with normal rate, tone, and volume. Mood/Affect: Mood is improving mildly, affect is congruent and constricted. Suicidality/Homicidality: Patient denies having any suicidal or homicidal ideation intent or plan. Perceptions: Patient denies any auditory or visual hallucinations. Though content/process: There is no evidence of any delusional thought content and thought process is linear and goal-directed. Memory and concentration: AOX3, grossly intact for the purposes of this session Judgment and insight: Improving mildly Assessment Major depressive disorder, recurrent, severe Generalized anxiety disorder Benzodiazepine abuse Plan: -Patient continues to meet criteria for inpatient psychiatric admission for symptom stabilization and safety. Patient has signed adult voluntary form and medication consent and was placed in patient's chart. -Medications: We will discontinue Pristiq. Increase Remeron to 15 mg by mouth at bedtime to address insomnia, depression, and lack of appetite. Increase BuSpar to 30 mg by mouth twice a day for anxiety Start Vistaril 50 mg by mouth at bedtime for insomnia. -SW on board for discharge planning. Encouraged the patient to participate in milieu.
[2020-07-09 12:44] LABS: Glucose,Whole Blood 92 mg/dL (75-99)
[2020-07-09 17:14] LABS: Appearance,Urine Clear (Clear); Bilirubin,Urine Negative (Negative); Blood,Urine Negative (Negative); Color,Urine Light Yellow; Glucose,Urine (UA) Negative (Negative); Hyaline Casts,Urine 1 /lpf (0-2); Ketones,Urine Negative (Negative); Leukocyte Esterase,Urine Large (Negative); Nitrite,Urine Negative (Negative); Protein,Urine Negative (Negative); Specific Gravity,Urine 1.012 (1.001-1.035); Squamous Epithelial Cell,Urine 1 /hpf (0-4); Urobilinogen,Urine <2.0 mg/dL (<2.0); WBC,Urine 1 /hpf (0-5)
[2020-07-09 17:28] LABS: Amphetamine Screen,Urine Not Detected (NotDetected); Benzodiazepines Screen,Urine Detected (NotDetected); Cocaine Screen,Urine Not Detected (NotDetected); Methadone Screen, Urine Not Detected (NotDetected); Opiate Screen,Urine Not Detected (NotDetected); Phencyclidine Screen,Urine Not Detected (NotDetected); Tricyclic Antidepressant,Urine Not Detected (NotDetected); Urn Cannabinoid Scrn Not Detected (NotDetected)
[2020-07-09 17:29] LABS: Barbiturate Screen,Urine Not Detected (NotDetected); Oxycodone Screen, Urine Not Detected (NotDetected)
[2020-07-09 17:39] LABS: Glucose,Whole Blood 95 mg/dL (75-99)
[2020-07-09 20:07] LABS: Glucose,Whole Blood 106 mg/dL (75-99)
[2020-07-09] MEDS: hydrOXYzine pamoate 25 MG CAP PO SCH (20:52)
[2020-07-09] MEDS: busPIRone HCl 10 MG TAB PO SCH (20:52)
[2020-07-09] MEDS: cloNIDine HCL 0.1 MG TAB PO SCH (20:52)
[2020-07-09] MEDS: ATORVASTATIN 40 MG TAB PO SCH (20:52)
[2020-07-09] MEDS: MONTELUKAST 10 MG TAB PO SCH (20:53)
[2020-07-09] MEDS: MIRTAZAPINE 15 MG TAB PO SCH (20:53)
[2020-07-10 07:50] LABS: Glucose,Whole Blood 109 mg/dL (75-99)
[2020-07-10] MEDS: busPIRone HCl 10 MG TAB PO SCH ×2 (08:34→21:07)
[2020-07-10] MEDS: metFORMIN 500 MG TAB PO SCH ×2 (08:34→17:07)
[2020-07-10] MEDS: PANTOPRAZOLE 40 MG TABLET PO SCH (08:35)
[2020-07-10] MEDS: METOCLOPRAMIDE 5 MG TAB PO SCH ×3 (08:35→17:07)
[2020-07-10] MEDS: LISINOPRIL-HCTZ 20-25 MG 1 EACH TAB PO SCH (08:36)
[2020-07-10 12:46] LABS: Glucose,Whole Blood 96 mg/dL (75-99)
[2020-07-10] MEDS: ACETAMINOPHEN TAB 325 MG TAB PO PRN ×2 (14:51→23:56)
[2020-07-10] MEDS: QUEtiapine 25 MG TAB PO SCH (16:24)
--- NOTE | 2020-07-10 17:07 | P.PN ---
Progress Note - Text Progress Note Date: 07/10/20 Clinical Problems: Major depressive disorder recurrent anxious distress, benzodiazepine use disorder, baclofen overdose Interim history: I reviewed the medical record and interviewed the patient. He is a 59-year-old male admitted to the psychiatric unit voluntarily with confusion following an intentional overdose of baclofen and benzodiazepines. Today, he complains of marked anxiety unrelieved by his current psychotropic medications. He minimizes severity of his overdose allegi ng that he took the medication for back pain and anxiety. We discussed treatment options and he agreed to a trial of Seroquel. Mental status exam: He presented as a disheveled appearing 59-year-old male who was pleasant on approach. He made eye contact and attended the interview. He was restless and fidgety throughout the interview. He had a tense facial expression. His speech was spontaneous with normal rate and rhythm. His affect was anxious and at times intense. He denied suicidal ideation or wishes. He stress feelings of hopelessness over his anxiety and depression. He did not express ideas reference, paranoid ideation or delusions. Her thinking was concrete but his associations are coherent and logical. He denied hallucinations did not appear to responding to internal stimuli. Assessment: He is preoccupied and anxiety and appears tense and nervous.. He is minimizing the severity of his overdose. He would benefit from treatment of anxiety but avoid benzodiazepines Plan: Continue inpatient treatment. Safety precautions. Continue BuSpar 30 mg twice a day, Vistaril 50 mg at bedtime, Remeron 15 mg at bedtime. Begin a trial of Seroquel 25 mg daily and titrated according to clinical response and tolerance. Encourage participation in therapeutic groups and activities. Evaluate clinical status response to treatment daily basis.
[2020-07-10 17:36] LABS: Glucose,Whole Blood 117 mg/dL (75-99)
[2020-07-10 20:01] LABS: Glucose,Whole Blood 104 mg/dL (75-99)
[2020-07-10] MEDS: MIRTAZAPINE 15 MG TAB PO SCH (21:07)
[2020-07-10] MEDS: cloNIDine HCL 0.1 MG TAB PO SCH (21:07)
[2020-07-10] MEDS: MONTELUKAST 10 MG TAB PO SCH (21:07)
[2020-07-10] MEDS: ATORVASTATIN 40 MG TAB PO SCH (21:07)
[2020-07-10] MEDS: hydrOXYzine pamoate 25 MG CAP PO SCH (21:07)
[2020-07-11 00:01] VITALS: RESP 16
[2020-07-11] MEDS: METOCLOPRAMIDE 5 MG TAB PO SCH ×4 (04:31→18:00)
[2020-07-11 07:44] LABS: Glucose,Whole Blood 115 mg/dL (75-99)
[2020-07-11] MEDS: busPIRone HCl 10 MG TAB PO SCH ×2 (08:12→20:38)
[2020-07-11] MEDS: metFORMIN 500 MG TAB PO SCH ×2 (08:12→18:00)
[2020-07-11] MEDS: PANTOPRAZOLE 40 MG TABLET PO SCH (08:12)
[2020-07-11] MEDS: LISINOPRIL-HCTZ 20-25 MG 1 EACH TAB PO SCH (08:12)
[2020-07-11] MEDS: QUEtiapine 25 MG TAB PO SCH (08:13)
--- NOTE | 2020-07-11 11:23 | P.PN ---
Progress Note - Text Progress Note Date: 07/11/20 Clinical Problems: Major depressive disorder recurrent anxious distress, benzodiazepine use disorder, baclofen overdose Interim history: I reviewed the medical record and interviewed the patient. He reported marked decrease in anxiety and improved sleep after taking Seroquel 25 mg yesterday morning. He denied side effects from the Seroquel including feeling sedated or "groggy". He alleged that his anxiety is "completely gone" and he is ready for discharge. He complained of continued back pain but was not requested opiate pain medications. He has been taking only Tylenol for pain. Mental status exam: He presented as a casually groomed 59-year-old male who was pleasant on approach. He made eye contact and attended the interview. He is not restless or tremulous but had a slight dyskinetic jaw movements. He had a bright facial expression. His speech was spontaneous with normal rate and rhythm. His affect was stable and appropriate. He denied suicidal ideation or wishes. He denied feeling hopeless, helpless or worthless He did not express ideas reference, paranoid ideation or delusions. Her thinking was concrete but his associations are coherent and logical. He denied hallucinations did not appear to responding to internal stimuli. Assessment: He is much less preoccupied about anxiety and anxiety symptoms. He has dyskinetic jaw movements were not present yesterday. Plan: Continue inpatient treatment. Safety precautions. Continue BuSpar 30 mg twice a day, Vistaril 50 mg at bedtime, Remeron 15 mg at bedtime and Seroquel 25 mg daily. Encourage participation in therapeutic groups and activities. Evaluate clinical status response to treatment daily basis.
[2020-07-11] MEDS: ACETAMINOPHEN TAB 325 MG TAB PO PRN ×2 (12:01→22:00)
[2020-07-11 12:37] LABS: Glucose,Whole Blood 94 mg/dL (75-99)
[2020-07-11 13:49] VITALS: TEMP 97.9
[2020-07-11 18:06] LABS: Glucose,Whole Blood 97 mg/dL (75-99)
[2020-07-11] MEDS: MIRTAZAPINE 15 MG TAB PO SCH (20:37)
[2020-07-11] MEDS: MONTELUKAST 10 MG TAB PO SCH (20:37)
[2020-07-11] MEDS: hydrOXYzine pamoate 25 MG CAP PO SCH (20:38)
[2020-07-11] MEDS: ATORVASTATIN 40 MG TAB PO SCH (20:38)
[2020-07-11] MEDS: cloNIDine HCL 0.1 MG TAB PO SCH (20:38)
[2020-07-12] MEDS: METOCLOPRAMIDE 5 MG TAB PO SCH ×3 (00:10→12:24)
[2020-07-12] MEDS: ACETAMINOPHEN TAB 325 MG TAB PO PRN (07:07)
[2020-07-12 07:27] VITALS: BP 105/62; PULSE 76
[2020-07-12 07:47] LABS: Glucose,Whole Blood 91 mg/dL (75-99)
[2020-07-12] MEDS: PANTOPRAZOLE 40 MG TABLET PO SCH (08:22)
[2020-07-12] MEDS: metFORMIN 500 MG TAB PO SCH (08:22)
[2020-07-12] MEDS: LISINOPRIL-HCTZ 20-25 MG 1 EACH TAB PO SCH (08:23)
[2020-07-12] MEDS: QUEtiapine 25 MG TAB PO SCH (08:23)
[2020-07-12] MEDS: busPIRone HCl 10 MG TAB PO SCH (09:03)
[2020-07-12 12:47] LABS: Glucose,Whole Blood 89 mg/dL (75-99)
--- NOTE | 2020-07-12 15:27 | P.DS ---
Providers Date of admission: 07/07/20 19:49 Attending physician: Santos Groves MD Consults: 07/07/20 19:53 Consult Physician Routine Consulting Provider: Latasha Smith Consult Reason/Comments: H and P Do you want consulting provider notified?: Yes Primary care physician: Fabiana Monroy - Discharge Diagnosis(es) (1) Major depressive disorder, recurrent episode with anxious distress Status: Chronic Priority: High (2) Mild benzodiazepine use disorder Status: Chronic Priority: High (3) Baclofen overdose Status: Acute Priority: Medium (4) Neurocognitive disorder Status: Acute Priority: Medium Hospital Course: HISTORY: He is a 59-year-old male admitted psychiatric unit involuntarily with confusion following an an intentional overdose of baclofen and benzodiazepine. He told the admitting psychiatrist that he took the quantity of both medications in order to manage his back pain and elevated anx iety. His completed the petition concerned about his overdose. He endorsed feelings depression and significant symptoms of depression including crying episodes, helplessness, anhedonia, poor appetite and impaired sleep. He denied that he had taken the baclofen and benzodiazepines in a suicide attempt. He denied history of elevated mood or sustained irritability suggestive of fatou or hypomania. He is no history of psychotic symptoms. HOSPITAL COURSE: He admitted him to psychiatric unit under the care of Dr. Collazo. We provided a comprehensive biopsychosocial assessment. The peoplesoft consultant filler in completed initial physical exam and medical history and diagnosed several conditions including type 2 diabetes mellitus, hyperlipidemia, hypertension, asthma, gastroparesis, hiatal hiatal hernia and chronic low back pain. Last Repairer Helper recommended to continue metformin and monitor glucose, continue Lipitor, continue clonidine and lisinopril-hydrochlorothiazide for control blood pressure, Singulair and omeprazole. We prescribed Motrin 400 mg every 8 hours for treatment of back pain. He treated his depressive anxiety symptoms with a combination of Remeron and Seroquel. He reported improvement of mood sleep and decrease in anxiety with combination 50 mg Remeron and 25 mg of Seroquel daily. Because of his unusual presentation we completed the [facility] Cognitive Assessment. His total score was 24/30 in his memory index score was 10/15. A total score less than 26 is consistent with a dementia. He had difficulties with attention, verbal fluency, abstraction and delayed recall. MENTAL STATUS ON DISCHARGE: At the time of discharge he presented as a casually groomed 59-year-old male who was pleasant on approach. He made eye contact and attended the interview. He is not restless or tremulous but had a slight dyskinetic jaw movements. He had a bright facial expression. His speech was spontaneous with normal rate and rhythm. His affect was stable and approp riate. He denied suicidal ideation or wishes. He denied feeling hopeless, helpless or worthless He did not express ideas reference, paranoid ideation or delusions. Her thinking was concrete but his associations are coherent and logical. He denied hallucinations did not appear to responding to internal stimuli. DISPOSITION: Return to his former address. Her psychotropic medications at discharge include Remeron 15 mg at bedtime, Seroquel 25 mg daily. He has a follow-up appointment at [facility] on 07/15/2020. Patient Condition at Discharge: Stable Plan - Discharge Summary Discharge Rx Participant: No New Discharge Prescriptions: New busPIRone HCl [Buspar] 30 mg PO BID #120 tab Ibuprofen [Motrin] 400 mg PO Q8HR PRN #90 tab PRN Reason: Pain Mirtazapine [Remeron] 15 mg PO HS #30 tab QUEtiapine [SEROquel] 25 mg PO DAILY #30 tab hydrOXYzine pamoate [Vistaril] 50 mg PO HS #60 cap Continue Omeprazole 20 mg PO DAILY Montelukast [Singulair] 10 mg PO HS cloNIDine HCL [Catapres] 0.1 mg PO HS Atorvastatin [Lipitor] 40 mg PO HS metFORMIN HCL [Glucophage] 500 mg PO BID Lisinopril-Hctz 20-25 mg [Zestoretic 20-25] 1 tab PO DAILY Metoclopramide [Reglan] 5 mg PO Q6HR #120 tab Discontinued busPIRone HCL 15 mg PO BID Desvenlafaxine Succinate [Pristiq] 100 mg PO DAILY Baclofen 10 mg PO TID Discharge Medication List Omeprazole 20 mg PO DAILY 02/03/16 [History] Montelukast [Singulair] 10 mg PO HS 06/29/16 [History] cloNIDine HCL [Catapres] 0.1 mg PO HS 12/19/17 [History] Atorvastatin [Lipitor] 40 mg PO HS 07/30/18 [History] metFORMIN HCL [Glucophage] 500 mg PO BID 10/18/18 [History] Lisinopril-Hctz 20-25 mg [Zestoretic 20-25] 1 tab PO DAILY 05/01/19 [History] Ibuprofen [Motrin] 400 mg PO Q8HR PRN #90 tab 07/12/20 [Rx] Metoclopramide [Reglan] 5 mg PO Q6HR #120 tab 07/12/20 [Rx] Mirtazapine [Remeron] 15 mg PO HS #30 tab 07/12/20 [Rx] QUEtiapine [SEROquel] 25 mg PO DAILY #30 tab 07/12/20 [Rx] busPIRone HCl [Buspar] 30 mg PO BID #120 tab 07/12/20 [Rx] hydrOXYzine pamoate [Vistaril] 50 mg PO HS #60 cap 07/12/20 [Rx] Follow up Appointment(s)/Referral(s): [facility] [Outside] - 1 Week (07/15 @ 11:00 ) Fabiana Monroy MD [Primary Care Provider] - 1-2 days Patient Instructions/Handouts: Help Prevent Suicide (DC) Activity/Diet/Wound Care/Special Instructions: Activity and diet as tolerated. Avoid the use of street drugs and alcohol. Take all medications as prescribed. When you are in need of refills on your medications please contact your medical provider and/or outpatient psychiatrist to have this done. Please go to scheduled outpatient appointment for aftercare treatment. If symptoms return or become worse, call the crisis line at [phone] and/or go to the nearest emergency room for evaluation. Discharge Disposition: HOME SELF-CARE
== END 2020-07-12 14:23 | disposition home or self-care (01) | DRG 885 ==
LOC: EC 14:21 → 3MHU 19:49
PROVIDERS: ADMIT Psychiatry & Neurology Psychiatry; ATTEND Psychiatry & Neurology Psychiatry
DX: F33.2 Major depressive disorder, recurrent severe without psychotic features (principal); F03.90 Unspecified dementia, unspecified severity, without behavioral disturbance, psychotic disturbance, mood disturbance, and anxiety; E11.40 Type 2 diabetes mellitus with diabetic neuropathy, unspecified; F13.10 Sedative, hypnotic or anxiolytic abuse, uncomplicated; T42.8X2A Poisoning by antiparkinsonism drugs and other central muscle-tone depressants, intentional self-harm, initial encounter; E11.43 Type 2 diabetes mellitus with diabetic autonomic (poly)neuropathy; K31.84 Gastroparesis; Z20.822 Contact with and (suspected) exposure to COVID-19; F41.1 Generalized anxiety disorder; J45.909 Unspecified asthma, uncomplicated; I10 Essential (primary) hypertension; G89.29 Other chronic pain; M54.5 Low back pain; E78.5 Hyperlipidemia, unspecified; K29.70 Gastritis, unspecified, without bleeding; K44.9 Diaphragmatic hernia without obstruction or gangrene; R13.10 Dysphagia, unspecified; G47.9 Sleep disorder, unspecified; Z79.84 Long term (current) use of oral hypoglycemic drugs; Z79.82 Long term (current) use of aspirin; Z79.899 Other long term (current) drug therapy; Z87.891 Personal history of nicotine dependence; Z86.73 Personal history of transient ischemic attack (TIA), and cerebral infarction without residual deficits; Z87.820 Personal history of traumatic brain injury; Z87.01 Personal history of pneumonia (recurrent); Z87.81 Personal history of (healed) traumatic fracture; Z87.19 Personal history of other diseases of the digestive system; Z87.39 Personal history of other diseases of the musculoskeletal system and connective tissue; Z98.890 Other specified postprocedural states; Z88.8 Allergy status to other drugs, medicaments and biological substances; Z91.048 Other nonmedicinal substance allergy status; Z80.0 Family history of malignant neoplasm of digestive organs; Z82.49 Family history of ischemic heart disease and other diseases of the circulatory system
CPT/HCPCS: 36415; 80053; 80061; 80143; 80306; 80320; 81001; 82075; 82550; 83036; 83605; 83735; 84100; 84443; 85025; 85610; 87635; 93005; 96361; 96365; 96366; 99285

== ENCOUNTER → 2022-12-13 | Outpatient (CLI) | payer OTHER ==
[2022-12-13 20:17] LABS: BUN/Creat Ratio 19.58 Ratio (12.00-20.00); Blood Urea Nitrogen 23.5 mg/dL (9.0-27.0); Chloride 102 mmol/L (96-109); Glucose 113 mg/dL (70-110); Potassium 4.4 mmol/L (3.5-5.5); Sodium 141 mmol/L (135-145)
[2022-12-13 20:18] LABS: ALT 41 U/L (10-49); AST 51 U/L (14-35); Albumin 4.6 d/dL (3.8-4.9); Albumin/Globulin Ratio 1.53 Ratio (1.60-3.17); Alkaline Phosphatase 128 U/L (41-126); Calcium 10.1 mg/dL (8.7-10.3); Total Bilirubin 0.4 mg/dL (0.3-1.2); Total Protein 7.6 d/dL (6.2-8.2)
[2022-12-13 20:32] LABS: Basophils # (A) 0.07 X 10*3/uL (0.00-0.10); Basophils % (A) 0.7 %; Eosinophils # (A) 0.34 X 10*3/uL (0.04-0.35); Eosinophils % (A) 3.6 %; HCT 42.2 % (39.6-50.0); HGB 13.6 d/dL (12.0-15.0); Lymphocytes # (A) 2.76 X 10*3/uL (0.90-5.00); MCH 29.6 pg (27.0-32.0); MCHC 32.2 d/dL (32.0-37.0); MCV 91.9 FL (80.0-97.0); Mean Platelet Volume 12.1 FL (9.5-12.2); Monocytes % (A) 12.6 %; NRBC Per 100 WBC 0 X 10*3/uL (0.00-0.01); Neutrophils # (A) 5.12 X 10*3/uL (1.80-7.70); Neutrophils % (A) 53.8 %; Platelet Count 215 X 10*3/uL (140-440); RBC 4.59 X 10*6/uL (4.40-5.60); RDW 17.1 % (11.5-14.5); WBC 9.52 X 10*3/uL (4.50-10.00)
== END | disposition home or self-care (01) ==
LOC: LABWHC1 11:47
PROVIDERS: ATTEND Internal Medicine Gastroenterology
DX: K76.0 Fatty (change of) liver, not elsewhere classified (principal)
CPT/HCPCS: 36415; 80053; 82105; 82728; 85025

== ENCOUNTER → 2023-04-09 | Outpatient (CLI) | payer OTHER | END | disposition home or self-care (01) | LOC: LABWHC1 16:06 | PROVIDERS: ATTEND Urology | DX: R97.20 Elevated prostate specific antigen [PSA] (principal) | CPT/HCPCS: 36415; 84153 ==